=== PATIENT | female | born 1960 | race Caucasian/White ===

== ENCOUNTER → 2023-01-12 15:35 | Outpatient (CLI) | payer MEDICARE, OTHER, SELFPAY | PROVIDERS: PCP Nurse Practitioner Family; Visit Provider Nurse Practitioner Family | DX: R30.0 Dysuria (principal); B96.29 Other Escherichia coli [E. coli] as the cause of diseases classified elsewhere | CPT/HCPCS: 87086 ==

== ENCOUNTER → 2023-02-08 13:11 | Outpatient (CLI) | payer MEDICARE, OTHER, SELFPAY ==
[2023-02-08 17:21] LABS: Basophils # 0.1 K/mm3 (0-0.2); Eosinophils # 0.4 K/mm3 (0.0-0.4); Eosinophils % 5.1 % (0.1-12.0); Hematocrit 43.7 % (37.0-47.0); Hemoglobin 14.6 g/dL (12.2-16.2); Lymphocytes # 2.8 K/mm3 (0.7-4.5); Lymphocytes % 33.9 % (10-50); Mean Corpuscular HGB Conc 33.3 g/dL (31.8-35.4); Mean Corpuscular Hemoglobin 32.5 pg (27.0-31.2); Mean Corpuscular Volume 97.7 fl (81-99); Mean Platelet Volume 8.9 fl (7.4-10.4); Monocytes # 0.4 K/mm3 (0.1-1.0); Monocytes % 4.7 % (1.7-9.3); Neutrophils # 4.6 K/mm3 (1.8-7.8); Neutrophils % 55.3 % (37.0-80.0); Platelet Count 212 K/mm3 (142-424); Red Blood Count 4.47 M/mm3 (4.20-5.40); Red Cell Distribution Width 14.4 % (11.5-17.5); White Blood Count 8.2 K/mm3 (4.8-10.8)
[2023-02-08 17:23] LABS: Alanine Aminotransferase 23 U/L (12-78); Albumin/Globulin Ratio 1.4 (1.1-1.8); Alkaline Phosphatase 122 U/L (38-126); Anion Gap 10.9 mEq/L (5-15); Aspartate Amino Transferase 26 U/L (14-36); Bilirubin,Total 0.5 mg/dl (0.2-1.3); Blood Urea Nitrogen 13 mg/dl (7-17); Calcium 8.4 mg/dl (8.4-10.2); Carbon Dioxide 25 mmol/L (22.0-30.0); Chloride 107 mmol/L (98-107); Chol/HDL Ratio 2.7 (1-3.5); Cholesterol 142 mg/dl (140-200); Estimated Glomerular Filt Rate 63 ml/min (>60); GFR (African American) 77 ML/MIN (>60); Globulin 2.9 g/dL (1.3-3.2); Glucose 98 mg/dl (74-100); HDL Cholesterol 53 mg/dl (40-60); Potassium 3.9 mmoL/L (3.5-5.1); Sodium 139 mmol/L (136-145); Total Protein,Serum 6.9 g/dl (6.3-8.2); Triglycerides 107 mg/dl (30-150); VLDL Cholesterol 21 mg/dL (0-40)
[2023-02-08 17:34] LABS: Direct LDL Cholesterol 76.52 mg/dL (100-129)
[2023-02-15 10:13] LABS: 1,25 Dihydroxy Vitamin D 39 pg/mL (.); 1,25-Dihydroxy, Vitamin D-2 <10 pg/mL (.); 1,25-Dihydroxy, Vitamin D-3 39 pg/mL (.)
== END ==
PROVIDERS: PCP Nurse Practitioner Family; Visit Provider Nurse Practitioner Family
DX: I10 Essential (primary) hypertension (principal); J44.9 Chronic obstructive pulmonary disease, unspecified; E03.9 Hypothyroidism, unspecified; E55.9 Vitamin D deficiency, unspecified; Z79.899 Other long term (current) drug therapy
CPT/HCPCS: 80053; 80061; 82652; 84443; 85025

== ENCOUNTER 2023-07-26 10:49 | Outpatient (CLI) | payer MEDICARE, OTHER, SELFPAY | END 2023-07-26 23:59 | disposition home or self-care (01) | LOC: LAB.DROPOF 07-27 10:50 | PROVIDERS: PCP Nurse Practitioner Family; Visit Provider Nurse Practitioner Family | DX: R30.0 Dysuria (principal); N39.0 Urinary tract infection, site not specified; B96.29 Other Escherichia coli [E. coli] as the cause of diseases classified elsewhere | CPT/HCPCS: 87086; 87088; 87186 ==

== ENCOUNTER 2023-10-08 17:37 | Outpatient (CLI) | payer MEDICARE, OTHER, SELFPAY ==
--- NOTE | 2023-10-08 17:43 | XR_ITS ---
PROCEDURE INFORMATION: Exam: XR Right Foot Exam date and time: 10/08/2023 5:34 PM Age: 62 years old Clinical indication: Pain; Foot; Right; Additional info: Right heel pain TECHNIQUE: Imaging protocol: Radiologic exam of the right foot. Views: 3 or more views. COMPARISON: No relevant prior studies available. FINDINGS: Bones/joints: No acute fracture. Hallux valgus. Chronic appearing flattening of the 2nd metatarsal head likely related to previous [place] infraction. Mild forefoot osteoarthritis. Calcaneal enthesopathy. Soft tissues: Normal. IMPRESSION: 1. No acute osseous findings. 2. Calcaneal enthesopathy.
== END 2023-10-08 23:59 | disposition home or self-care (01) ==
PROVIDERS: PCP Nurse Practitioner Family; Visit Provider Nurse Practitioner Family
DX: M79.671 Pain in right foot (principal)
CPT/HCPCS: 73630

== ENCOUNTER 2023-10-18 15:55 | Outpatient (RCR) | payer MEDICARE, OTHER, SELFPAY | END 2023-11-26 15:26 | disposition home or self-care (01) | LOC: PT 15:55 | PROVIDERS: Visit Provider Nurse Practitioner Family | DX: M79.671 Pain in right foot (principal) | CPT/HCPCS: 97163 ==

== ENCOUNTER 2024-01-18 12:41 | Outpatient (CLI) | payer MEDICARE, OTHER, SELFPAY ==
[2024-01-18 15:13] LABS: Hemoglobin A1C 5.5 % (4.0-6.0)
== END 2024-01-18 23:59 | disposition home or self-care (01) ==
LOC: LAB.DROPOF 01-21 12:42
PROVIDERS: PCP Family Medicine; Visit Provider Family Medicine
DX: R73.09 Other abnormal glucose (principal)
CPT/HCPCS: 83036

== ENCOUNTER 2024-01-18 12:46 | Outpatient (CLI) | payer MEDICARE, OTHER, SELFPAY ==
--- NOTE | 2024-01-18 13:08 | CT_ITS ---
FINAL REPORT TECHNIQUE: Multiple axial CT sections were performed from the foramen magnum to the vertex. Coronal and sagittal reformatted images were also obtained. Precontrast and postcontrast injection images were obtained. This study was performed with technique to keep radiation doses as low as reasonably achievable, (ALARA). Individualized dose reduction techniques using automated exposure control or adjustment of mA and/or kV according to the patient size were employed. CLINICAL HISTORY: persistent headache COMPARISON: None FINDINGS: The ventricles are normal in size. There is no evidence of hemorrhage. No masses are identified. No extra-axial fluid collection is seen. The sinuses are normal. No osseous abnormality is seen on the bone window images. Postcontrast images demonstrate no abnormal enhancement. IMPRESSION: Unremarkable CT of the head with and without contrast. Reviewed, Interpreted and Dictated by Sharan Lopes III, MD Transcribed by Eliza Roberts Authenticated and [facility]
[2024-01-18 13:31] LABS: Chloride 110 mmol/L (98-107)
[2024-01-18 13:32] LABS: Potassium 3.5 mmoL/L (3.5-5.1); Sodium 142 mmol/L (136-145)
[2024-01-18 13:34] LABS: Alanine Aminotransferase 19 U/L (12-78); Aspartate Amino Transferase 21 U/L (14-36); Blood Urea Nitrogen 11 mg/dl (7-17); Estimated Glomerular Filt Rate 63 ml/min (>60); GFR (African American) 77 ML/MIN (>60)
[2024-01-18 13:35] LABS: Albumin/Globulin Ratio 1.3 (1.1-1.8); Alkaline Phosphatase 112 U/L (38-126); Anion Gap 10.5 mEq/L (5-15); Bilirubin,Total 0.6 mg/dl (0.2-1.3); Calcium 8.6 mg/dl (8.4-10.2); Carbon Dioxide 25 mmol/L (22.0-30.0); Chol/HDL Ratio 2.7 (1-3.5); Cholesterol 136 mg/dl (140-200); Glucose 151 mg/dl (74-100); HDL Cholesterol 51 mg/dl (40-60); Triglycerides 104 mg/dl (30-150); VLDL Cholesterol 21 mg/dL (0-40)
[2024-01-18 13:46] LABS: Direct LDL Cholesterol 62.24 mg/dL (100-129)
[2024-01-18] MEDS: SODIUM CHLORIDE 0.9% 10ML SYR (RAD ONLY) 10 ML IV (13:59)
[2024-01-18] MEDS: IOPAMIDOL-300 (61%) 100ML VIAL 100 ML IV (14:00)
[2024-01-18 14:01] LABS: Basophils # 0.1 K/mm3 (0-0.2); Basophils % 1.1 % (0.1-2.0); Eosinophils # 0.3 K/mm3 (0.0-0.4); Eosinophils % 3.3 % (0.1-12.0); Hematocrit 42.2 % (37.0-47.0); Hemoglobin 14.7 g/dL (12.2-16.2); Lymphocytes # 2.6 K/mm3 (0.7-4.5); Lymphocytes % 30.1 % (10-50); Mean Corpuscular HGB Conc 34.7 g/dL (31.8-35.4); Mean Corpuscular Hemoglobin 32.1 pg (27.0-31.2); Mean Corpuscular Volume 92.5 fl (81-99); Mean Platelet Volume 8.1 fl (7.4-10.4); Monocytes # 0.3 K/mm3 (0.1-1.0); Monocytes % 3.4 % (1.7-9.3); Neutrophils # 5.4 K/mm3 (1.8-7.8); Platelet Count 223 K/mm3 (142-424); Red Blood Count 4.56 M/mm3 (4.20-5.40); Red Cell Distribution Width 14.3 % (11.5-17.5); White Blood Count 8.7 K/mm3 (4.8-10.8)
[2024-01-18 14:08] LABS: Thyroid Stimulating Hormone 3.37 uIU/mL (0.465-4.68)
[2024-01-18 14:40] LABS: HIV (1&2) Antibody Rapid NONREACTIVE (NONREACTIVE)
[2024-01-19 08:22] LABS: HCV Ab Non Reactive (Non Reactive)
== END 2024-01-18 23:59 | disposition home or self-care (01) ==
LOC: RAD 12:48
PROVIDERS: PCP Family Medicine; Visit Provider Family Medicine
DX: R51.9 Headache, unspecified (principal); E03.9 Hypothyroidism, unspecified; I10 Essential (primary) hypertension; Z11.59 Encounter for screening for other viral diseases; Z11.4 Encounter for screening for human immunodeficiency virus [HIV]; Z79.899 Other long term (current) drug therapy; R73.09 Other abnormal glucose
CPT/HCPCS: 36415; 70470; 80053; 80061; 83036; 84443; 85025; 86803; 87389; Q9967

== ENCOUNTER 2024-01-22 14:00 | Outpatient (CLI) | payer MEDICARE, OTHER, SELFPAY | END 2024-01-22 23:59 | disposition home or self-care (01) | LOC: LAB.DROPOF 01-23 11:52 | PROVIDERS: PCP Family Medicine; Visit Provider Family Medicine | DX: R39.9 Unspecified symptoms and signs involving the genitourinary system (principal) | CPT/HCPCS: 87086 ==

== ENCOUNTER 2024-04-24 12:40 | Outpatient (CLI) | payer MEDICARE, OTHER, SELFPAY | END 2024-04-24 23:59 | disposition home or self-care (01) | LOC: RAD 12:41 | PROVIDERS: PCP Family Medicine; Visit Provider Family Medicine | DX: Z12.31 Encounter for screening mammogram for malignant neoplasm of breast (principal) | CPT/HCPCS: 77063; 77067 ==

== ENCOUNTER 2024-08-14 14:00 | Outpatient (CLI) | payer MEDICARE, OTHER, SELFPAY ==
--- OUTSIDE RECORDS SUMMARY | 2024-08-15 12:47 | XMS_ITS | Data Portability ---
Author Organization [facility] Address [address] [place] [address] Care Team Providers Care Stone Repairer Name Role Phone STANLEY PAEZ Primary Care Provider [phone] Assessment No assessment recorded. Plan of Treatment Reminders Order Date Submit Date Provider Last Modified By Organization Details Last Modified Time Details Appointments None recorded. Lab None recorded. Referral None recorded. Procedures None recorded. Surgeries None recorded. Imaging None recorded. Medication Orders mometasone 0.1 % topical cream 2022 023 [facility] [address] [place], [address], 3 15:50:23 ketoconazol e 1 % shampoo 2022 023 [facility], [address] [place], [address], 3 15:50:27 fluticasone propionate 50 mcg/actuati on nasal spray,suspe nsion 2022 023 [facility], [address] [place], [address], 3 15:50:22 loratadine 10 mg tablet 2022 023 [facility], [address] [place], [address], 3 15:50:21 Topamax 50 mg tablet 2022 023 [facility], [address] [place], [address], 3 15:50:24 Patient TargetsNo targets recorded. Patient InstructionsNo instructions recorded. Reason for Referral None Reported. Problems Name Problem SNOMED Code Status Onset Date Resolution Date Notes Provider Name and Address Organization Details Recorded Time Chronic otitis externa of left external auditory canal 7589580814806 104 Active Tamie Stephen null, [place] [facility] [place] & [place] 3 16:09:00 Myocardial infarction 95524978 Active Tamie [place] [facility] [place] 3 16:09:37 Hypertensiv e disorder 86861773 Active Tamie Stephen [place], [place] [facility] [place] [facility] [place] 3 16:10:11 Migraine 61242461 Active Tamie [place] [facility] [place] [facility] [place] 3 16:10:33 Arthritis 3201900 Active Tamie [place] [facility] [place] 3 16:10:45 Problem 53777550 Active Tamie [place] [facility] [place] 3 16:10:56 Anxiety 78277260 Active Tamie [place] [facility] [place] [facility] [place] 3 16:11:02 Hypercholes terolemia 51258758 Active Tamie Stephen [place] [facility] [place] 3 16:11:11 Gastroesoph ageal reflux disease without esophagitis 533794906 Active Tamie Stephen [place] [facility] [place] 3 16:11:23 Chronic obstructive pulmonary disease 51176990 Active ARCHANA Moss [employer] [facility],[address] [place] [address], [address] [facility] [place] - [facility] [place] 3 15:44:11 Headache 05031586 Active 2022 ARCHANA Moss [employer] [facility],[place] [address], [place], [address], [facility] & [place] 3 15:45:43 Chronic eczema of external auditory canal 726932840 Active [address], [address], [place] [facility] & [place] 3 15:46:11 Allergic rhinitis 06308866 Active 2022 Eunice Whittaker [address],[place] [address], [place], [address], [place] [facility] & [place] 3 15:46:16 Acute sinusitis 53139698 Active [address], [address], [facility] & [place] 3 14:10:43 Problem Notes None recorded. Procedures Surgical History Date Name Laterality Status Provider Name and Address Organization Details Recorded Time ligation of bilateral fallopian tubes completed Tamie Stephen [place] [facility] [place] 06/01/2022 16:12:21 procedure on back completed Tamie Stephen [place] - [facility] & [place] 06/01/2022 16:12:27 procedure on nose completed Tamie Stephen [place] [facility] & [place] 06/01/2022 16:12:34 Imaging Results None recorded. Procedure Notes None recorded. Medical Equipment None Reported. Allergies Allergen ID Allergen Name Allergen Category Reaction Reaction Severity Criticality Documentation Date Start Date Code Code System Note Provider Name and Address Organization Details Recorded Time 76102 Product containin g penicilli n (product) medicatio n Not available Not available Not available 06/01/2022 10566 8001 SNOMED Tamie Stephen null, [place] - [facility] & [place] 3 16:12:47 Medications Name Sig Start Date Stop Date Status Note LastModified by Organization Details LastModified Time atorvastati n 40 mg tablet TAKE 1 TABLET 1 TIME EACH DAY active Not Available Not Available No t Available clotrimazol e 10 mg dany active Not Available Not Available Not Available prednisone 10 mg tablet TAKE ACCORDING TO ATTACHED INSTRUCTI ONS active Not Available Not Available No t Available gabapentin 600 mg tablet TAKE 1 TABLET 3 TIMES EACH DAY active Not Available Not Available No t Available doxycycline hyclate 100 mg capsule TAKE 1 CAPSULE 2 TIMES EACH DAY FOR 10 DAYS active Not Available Not Available No t Available ketoconazol e 2 % shampoo active Not Available Not Available Not Available ibuprofen 800 mg tablet active Not Available Not Available Not Available fluconazole 150 mg tablet TAKE 1 TABLET TODAY. MAY TAKE ANOTHER TABLET IN 3 DAYS IF SYMPTOMS ARE NOT GONE. active Not Available Not Available No t Available methadone 10 mg tablet TAKE 1 TABLET 4 TIMES EACH DAY active Not Available Not Available No t Available phenazopyri dine 200 mg tablet active Not Available Not Available Not Available lisinopril 20 mg tablet TAKE 1 TABLET 1 TIME EACH DAY 06/01 completed Not Available Not Available Not Available isosorbide mononitrate ER 30 mg tablet,exte nded release 24 hr TAKE 1 TABLET 1 TIME EACH DAY active Not Available Not Available No t Available metoprolol succinate ER 100 mg tablet,exte nded release 24 hr TAKE 1 TABLET 1 TIME EACH DAY active Not Available Not Available No t Available clindamycin HCl 150 mg capsule 11/06 completed Not Available Not Available Not Available sumatriptan 50 mg tablet Take one tablet by mouth at onset of episode, may repeat in 1 -2 hours if no relief, no more than 2 in 24 hours active Not Available Not Available No t Available pseudoephed rine ER 120 mg tablet,exte nded release TAKE 1 TABLET EVERY 12 HOURS NEEDED FOR NASAL CONGESTIO N active Not Available Not Available No t Available clopidogrel 75 mg tablet TAKE 1 TABLET 1 TIME EACH DAY active Not Available Not Available No t Available ciprofloxac in 250 mg tablet active Not Available Not Available Not Available ciprofloxac in 500 mg tablet TAKE 1 TABLET 2 TIMES EACH DAY FOR 7 DAYS active Not Available Not Available No t Available sulfamethox azole 800 mg-trimetho prim 160 mg tablet active Not Available Not Available Not Available triamcinolo ne acetonide 0.1 % topical cream active Not Available Not Available Not Available methocarbam ol 750 mg tablet active Not Available Not Available Not Available desoximetas one 0.25 % topical ointment active Not Available Not Available Not Available cephalexin 500 mg capsule TAKE 1 CAPSULE 2 TIMES EACH DAY FOR 10 DAYS active Not Available Not Available No t Available esomeprazol e magnesium 40 mg capsule,del ayed release TAKE 1 CAPSULE 1 TIME EACH DAY active Not Available Not Available No t Available nystatin 100,000 unit/gram topical cream APPLY TO AFFECTED AREA 4 TIMES EACH DAY active Not Available Not Available No t Available nitroglycer in 0.4 mg sublingual tablet DISSOLVE 1 TABLET UNDER THE TONGUE EVERY 5 MINUTES NEEDED FOR CHEST PAIN. IF 3 TABLETS ARE NEEDED, GO TO EMERGENCY ROOM. active Not Available Not Available No t Available omeprazole 20 mg capsule,del ayed release TAKE 1 CAPSULE 2 TIMES EACH DAY active Not Available Not Available No t Available mupirocin 2 % topical ointment APPLY A THIN FILM TO THE AFFECTED AREA OF SKIN 2 TIMES EACH DAY active Not Available Not Available No t Available estradiol 0.01% (0.1 mg/gram) vaginal cream INSERT 1/2 GRAM INTO THE VAGINA 2 TIMES EACH WEEK active Not Available Not Available No t Available scopolamine 1 mg over 3 days transdermal patch APPLY 1 PATCH DIRECTED EVERY 3 DAYS NEEDED FOR MOTION SICKNESS. active Not Available Not Available No t Available methylpredn isolone 4 mg tablets in a dose pack TAKE ACCORDING TO PACKAGE INSTRUCTI ONS active Not Available Not Available No t Available albuterol sulfate HFA 90 mcg/actuati on aerosol inhaler INHALE 2 PUFFS EVERY 4 HOURS active Not Available Not Available No t Available lisinopril 40 mg tablet TAKE 1 TABLET 1 TIME EACH DAY active Not Available Not Available No t Available ondansetron 4 mg disintegrat ing tablet PLACE 1 TABLET UNDER THE TONGUE AND ALLOW TO DISSOLVE EVERY 8 HOURS NEEDED FOR NAUSEA AND VOMITING active Not Available Not Available No t Available cefdinir 300 mg capsule Take 1 capsule every 12 hours by oral route for 10 days. active Not Available Not Available No t Available fluticasone propionate 50 mcg/actuati on nasal spray,suspe nsion SPRAY 1 TIME IN EACH NOSTRIL 1 TIME EACH DAY active Not Available Not Available No t Available ketoconazol e 1 % shampoo APPLY SHAMPOO BY TOPICAL ROUTE EVERY 3 DAYS LATHER, RINSE, AND REPEAT 2022 active Not Available Not Available Not Avai lable cholecalcif myranda (vitamin D3) 125 mcg (5,000 unit) capsule TAKE 1 CAPSULE 1 TIME EACH DAY active Not Available Not Available No t Available loratadine 10 mg tablet Take 1 tablet every day by oral route for 30 days. active Not Available Not Available No t Available mometasone 0.1 % topical cream APPLY A THIN LAYER TO THE LEFT EAR NIGHTLY FOR 14 DAYS THEN NEEDED FOR FLARE UPS active Not Available Not Available No t Available levothyroxi ne 112 mcg tablet TAKE 1 TABLET 1 TIME EACH DAY active Not Available Not Available No t Available Topamax 50 mg tablet Take 1 tablet(s) twice a day by oral route for 30 days. 2023 active Not Available Not Available Not Avai lable nitrofurant oin monohydrate /macrocryst als 100 mg capsule active Not Available Not Available Not Available Symbicort 160 mcg-4.5 mcg/actuati on HFA aerosol inhaler INHALE 2 PUFFS 2 TIMES EACH DAY active Not Available Not Available No t Available cholecalcif myranda (vitamin D3) 125 mcg (5,000 unit) tablet active Not Available Not Available Not Available naloxone 4 mg/actuatio n nasal spray SPRAY 1 DOSE INTO 1 NOSTRIL IN CASE OF OVERDOSE. IF PERSON DOES NOT RESPOND IN 2-3 MINUTES, SPRAY OTHER DOSE INTO OTHER NOSTRIL. active Not Available Not Available No t Available Breztri Aerosphere 160 mcg-9mcg-4. 8mcg/actuat ion HFA aerosol inhaler INHALE 2 PUFFS 2 TIMES EACH DAY active Not Available Not Available No t Available Veozah 45 mg tablet TAKE 1 TABLET 1 TIME EACH DAY active Not Available Not Available No t Available Vitals Date Recorded Body height Body weight Body temperature Oxygen saturation Oxygen saturation in Arterial blood by Pulse oximetry Heart rate Respiratory rate Systolic blood pressure Diastolic blood pressure Provider Name and Address Organization Details Last Updated DateTime 3 160.02 cm 05423.3 6 g 97.8 [degF] 95 % 95 % 69 /min 16 /min 136 mm[Hg] 79 mm[Hg] ARCHANA Moss [address] [facility],[address], [address] [place], [place] - [facility] & [place] 3 15:38:42 Social History None recorded. Functional Status None recorded. Mental Status None recorded. Family History Relationship Description Onset Age of this Age Resolved Age Notes LastModified by Organization Details LastModified Time Mother Diabetes mellitus [email or web address] Not available 2022 16:11:38 Mother Hypertensive disorder [email or web address] Not available 2022 16:11:48 Father Hypertensive disorder [email or web address] Not available 2022 16:11:48 Father Coronary arterioscler osis [email or web address] Not available 2022 16:11:57 Father Cerebrovascu lar accident [email or web address] Not available 16:12:03 Medical History No medical history recorded. Gynecological HistoryNo gynecological history recorded. Obstetrics History GPAL:G 0 P 0 0 0 0 Past Encounters Encounter ID Performer Location Encounter Start Date Encounter Closed Date Diagnosis/Indication Diagnosis SNOMED-CT Code Diagnosis ICD10 Code Diagnosis Note [id number] ARCHANA Moss [facility] [place] [address] [place] [id number] 11/06/2022 15:04:31 11/06/2022 15:44:50 Headache 85620941 R51.9 Continue current medication regimen. Patient reports her symptoms have improved greatly since starting this regimen. Follow up in one year or sooner if needed. Chronic ec zema of external auditory canal 696524936 H60.8X9 Advised patient to use medication as prescribed . Discussed symptoms that should prompt patient to call the office prior to follow up. Allergic rhinitis 697782 04 J30.9 Advised patient to use medication as prescribed . Advised patient to call the office if symptoms do not improve following initiation of allergy regimen. Health Concerns Section Related Observation LastModified by Organization Detai ls LastModified Time None Recorded Concern Status LastModified by Organization Details LastModified Time None Recorded Advance Directives Directive None Recorded Payers Insurance Date Sequence Insurance Name Policy Number Policy Schulte Covered Member ID Schulte Member ID Guarantor Name 09/29/2023 [place] Rocío Bedoya [id number] Rocío eBdoya 09/29/2023 2 AETNA [facility] (MEDICAID HMO) Rocío Bedoya [id number] Rocío Bedoya 09/29/2023 1 [place]MEDICARE REPLACEMENT HMO) [id number] Rocío Bedoya [id number] Rocío Johnson Elke Notes Date Note Type Note Provider Name and Address Organization Details Recorded Time 11/06/2022 text/html Patient is here today for annual follow up. She reports her migraines are well controlled on the topamax. She reports her ear is still itching. She reports over the past few days she has had a runny nose and sore throat. ARCHANA Moss [address] [facility],[address], [place], [address], [facility] & [place] 11/06/2022 15:55:37 OBGyn Episode No OBEpisode recorded.
--- OUTSIDE RECORDS SUMMARY | 2024-08-15 12:47 | XMS_ITS | Encounter Summary ---
Author Organization Healthcare Address [address] [place] [address] Care Team Providers Care Wood Dowel Machine Operator Name Role Phone Dai Beaver APRN Primary Care Provider [phone]- [phone] Encounter Details Date Type Department Care Team (Late st Contact Info) Description 07/30/2024 [facility]phone [place] [facility] [address] [place] [address] Jethro Sow, PA [address] [place] [address] Social History Tobacco Use Types Packs/Day Years Used Date Smoking Tobacco: Never Alcohol Use Standard Drinks/Week Comments Never 0 (1 standard drink = 0.6 oz pur e alcohol) Comments Unknown Sex and Gender Information Value Date Recorded Sex Assigned at Not on file Legal Sex Female 8:08 PM EDT Gender Identity Not on file Sexual Orientation Not on file documented as of this encounter Plan of Treatment Not on file documented as of this encounter Visit Diagnoses Not on filedocumented in this encounter Care Teams Wood Dowel Machine Operator Relationship Specialty Start Date End Date Dai Beaver APRN [address] [place] [address] PCP - General 05/10/24 documented as of this encounter
--- OUTSIDE RECORDS SUMMARY | 2024-08-15 12:47 | XMS_ITS | Clinical Summary ---
Author Organization [facility] Address [address] [place] [address] Care Team Providers Care Search Engine Optimization Consultant Name Role Phone Dai Beaver LOAN ANALYST Primary Care Provider +1- [phone] Allergies Active Allergy Reactions Criticality Noted Date Comments Penicillins Rash Low 02/19/2022 Medications SUMAtriptan (Imitrex) 25 MG tablet Take 1 tablet (25 mg) by mouth 1 (one) time as needed for migraine for up to 10 doses. May repeat dose once in 2 hours if no relief. Do not exceed 2 doses in 24 hours. 10 tablet 05/10/2024 Active Encounters Date Type Department Care Team Description 08/12/2024 Telephone [facility] [address] [place] [address] Jethro Sow, KATHARINA 07/30/2024 Telephone [facility] [address], [address] [place] [address] Jethro Sow, KATHARINA from Last 3 Months Social History Tobacco Use Types Packs/Day Years Used Date Smoking Tobacco: Never Tobacco Cessation:Counseling Given: Not Answered Alcohol Use Standard Drinks/Week Comments Never 0 (1 standard drink = 0.6 oz pur e alcohol) Comments Unknown Sex and Gender Information Value Date Recorded Sex Assigned at Not on file Legal Sex Female 8:08 PM EDT Gender Identity Not on file Sexual Orientation Not on file Last Filed Vital Signs Vital Sign Reading Time Taken Comments Blood Pressure 132/85 05/10/2024 8:27 PM EST Pulse 56 05/10/2024 8:27 PM EST Temperature 36.6 C (97.8 F) 05/10/2024 8:27 PM EST Respiratory Rate 18 05/10/2024 8:27 PM EST Oxygen Saturation 98% 05/10/2024 8:27 PM EST Inhaled Oxygen Concentration - - Weight 99.8 kg (220 lb) 05/10/2024 2:20 PM EST Height 160 cm (5' 3 ) 05/10/2024 2:20 PM EST Body Mass Index 38.97 05/10/2024 2:20 PM EST Plan of Treatment Health Maintenance Due Date Last Done Comments [facility]-Depression Screening 1960 [facility]-Medicare Annual Wellness (AWV) 1960 [facility]-Infant/Child/Adol SDOH Screenings 1960 [facility]-Obesity Intervention 1966 [facility]- SDOH Screenings 1978 [facility]-Adult SDOH Screenings 1978 [facility]-Pap Smear 1981 [facility]-Cervical Cancer Screening 1990 [facility]-HPV/Cotest 1990 CT Colonography 2005 Colonoscopy 2005 FIT-DNA 2005 FIT 2005 FOBT 2005 Sigmoidoscopy 2005 [facility]-Colorectal Cancer Screening 2005 [facility]-Breast Cancer Screening 2010 [facility]-Zoster Vaccines (1 of 2) 2010 [id number] Vaccine (2 - season) 2023 05/17/2020 [facility]-DTaP,Tdap,and Td Vaccines (2 - Td or Tdap) 03/12/2024 03/12/2014 [facility]-RSV Vaccine: 60+ Years or (1 - 1-dose 75+ series) 12/24/2035 [facility]-Influenza Vaccine Completed 04/03/2024 , 12/17/2022, 12/22/2019, Additional history exists [facility]-Pneumococcal Vaccine: 50+ Years Completed 04/03/2024 [facility]-HIV Screening Completed 05/10/2024 [facility]-Hepatitis C Screening Completed 05/10/2024 HPV Vaccines Aged Out No longer eligi ble based on patient's age to complete this topic [facility]-HIB Vaccines Aged Out No longer e ligible based on patient's age to complete this topic [facility]-Hepatitis A Vaccines Aged Out No longer eligible based on patient's age to complete this topic [facility]-IPV Vaccines Aged Out No longer e ligible based on patient's age to complete this topic [facility]-Rotavirus Vaccines Aged Out No lo nger eligible based on patient's age to complete this topic Procedures Procedure Name Priority Date/Time Associated Diagnosis Comments HEPATITIS C ANTIBODY - ED W/REFLEX TO HCV QUANT PCR STAT 05/10/2024 3:27 PM EST ED HIV 1/2 ANTIBODY/ANTIGEN SCREEN WITH REFLEX TO HIV I/II DIFFERENTIATION STAT 05/10/2024 3:27 PM EST from Last 3 Months or Most Recently Relevant to Health Maintenance Results * ED HIV 1/2 Antibody/Antigen Screen w/Reflex to HIV 1/2 Differentiation (05/10/2024 3:27 PM EST) HIV 1 & 2 Antibody/Antigen Screen Non Reactive Non Reactive 05/10/2024 4:20 PM EST [facility] Comment:Screening for HIV 1 & 2 antibodies, and P24 antigen is NONREACTIVE. No confirmatory testing is required. Blood Venous blood specimen / Unknown Venipuncture / Unknown 05/10/2024 3:27 PM EST 05/10/2024 3:40 PM EST Result Olga Richardson MD LAB BLOOD ORDERABLES Final Re sult Performing Organization Address City/[facility]/ZIP Co de Phone Number [facility] [address] [place] [address] * Hepatitis C Antibody - ED (05/10/2024 3:27 PM EST) Hepatitis C Antibody Negative Negative 05/10/2024 4:20 PM EST [facility] Blood Venous blood specimen / Unknown Venipuncture / Unknown 05/10/2024 3:27 PM EST 05/10/2024 3:40 PM EST us Martina Richardson MD LAB BLOOD ORDERABLES Final Re sult [facility] [address] [place] [address] from Last 3 Months or Most Recently Relevant to Health Maintenance Insurance AETNA [facility] MEDICAID [facility] MEDICARE Care Teams Search Engine Optimization Consultant Relationship Specialty Start Date End Date Dai Beaver APRN [address] [place] [address] PCP - General 05/10/24
--- OUTSIDE RECORDS SUMMARY | 2024-08-15 12:47 | XMS_ITS | Encounter Summary ---
Author Organization Healthcare Address [address] [place] [address] Care Team Providers Care Java Lead Name Role Phone Dai Beaver APRN Primary Care Provider +1- [phone] Encounter Details Date Type Department Care Team (Late st Contact Info) Description 08/12/2024 Telephone [place] [facility] [address], [address] [place] [address] Jethro Sow, PA [address] [place] [address] Social History Tobacco Use Types [...] on filedocumented in this encounter Care Teams Java Lead Relationship Specialty Start Date End Date Dai Beaver APRN [address] [place] [address] PCP - General 05/10/24 documented as of this encounter
--- OUTSIDE RECORDS SUMMARY | 2024-08-15 12:47 | XMS_ITS | Referral Summary ---
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 Active omeprazole (PriLOSEC) 20 MG capsuleIndications: Health care maintenance Take 20 mg by mouth 2 (two) times daily. Active atorvastatin (LIPITOR) 40 MG tabletIndications:H yperlipidemia, unspecified hyperlipidemia type TAKE 1 TABLET 1 TIME EACH DAY 2 Active gabapentin (NEURONTIN) 600 MG tabletIndications:H ealth care maintenance Take 600 mg by mouth 3 (three) times daily. 2 Active methadone (DOLOPHINE) 10 MG tabletIndications:H ealth care maintenance Take 10 mg by mouth 4 (four) times daily. 2 Active metoprolol succinate (TOPROL-XL) 100 MG 24 hr tabletIndications:H ypertension, unspecified type TAKE 1 TABLET 1 TIME EACH DAY 2 Active levothyroxine (SYNTHROID, LEVOTHROID) 112 MCG tabletIndications:H ypothyroidism, unspecified type TAKE 1 TABLET 1 TIME EACH DAY 2 Active topiramate (TOPAMAX) 50 MG tabletIndications:H ealth care maintenance Take 50 mg by mouth 2 (two) times daily. 2 Active Social History Tobacco Use Types Packs/Day Years Used Date Smoking Tobacco: Former Cigarettes Q uit: 2001 Smokeless Tobacco: Never Alcohol Use Standard Drinks/Week Comments Not Currently 0 (1 standard drink = 0.6 oz pur e alcohol) social Interpersonal Safety Answer Date Record ed Family or friends hurt you Not on file 03/30 Family or friends insult you Not on file Family or friends threaten you Not on file 0 03/30/2023 Family or friends scream or curse at you Not on file 03/30/2023 Housing Stability Answer Date Recorded Living situation today Not on file Living situation problems Not on file 2023 Food Insecurity Answer Date Recorded Food run out past 12 months Not on file 03/12 Food did not last past 12 months Not on file 03/30/2023 Employment Answer Date Recorded Help finding and keeping a job Not on file 0 03/30/2023 Family and Community Support Answer Tono e Recorded Help with Day to Day Activities Not on file 03/30/2023 Feeling Lonely or Isolated Not on file 03/30 Educational Attainment Answer Date Harmeet rded Speak language other than [place] at home Not on file 03/30/2023 Want help with school or training Not on file 03/30/2023 Depression Answer Date Recorded PHQ-2 Risk Not on file 03/30/2023 Disabilities Answer Date Recorded Difficulty concentrating Not on file 024 Difficulty doing errands alone Not on file 0 03/30/2023 Substance Use Answer Date Recorded Used prescription meds for non-medical reasons N ot on file 03/30/2023 Used illegal drugs past 12 months Not on file 03/30/2023 Comments Unknown Sex and Gender Information Value Date Recorded Sex Assigned at Not on file Legal Sex Female 7:29 PM CDT Gender Identity Not on file Sexual Orientation Not on file Occupation Industry Job Start Date Job End Date disabled Not on file Not on file Not on file Last Filed Vital Signs Vital Sign Reading Time Taken Comments Blood Pressure 150/80 02/20/2022 2:10 PM EST Pulse 60 02/20/2022 2:10 PM EST Temperature - - Respiratory Rate - - Oxygen Saturation - - Inhaled Oxygen Concentration - - Weight 98.4 kg (217 lb) 02/20/2022 2:10 PM EST Height 160 cm (5' 3 ) 02/20/2022 2:10 PM EST Body Mass Index 38.44 02/20/2022 2:10 PM EST Plan of Treatment Not on file Insurance [employer] [facility] Advance Directives For more information, please contact: [phone] Documents on File Type Date Recorded 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
--- OUTSIDE RECORDS SUMMARY | 2024-08-15 12:47 | XMS_ITS | Data Portability ---
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 COPD *PFT (10/23/2022): moderate obstruction, no restriction, +midflow obstruction, no change after TRERELL 2. Dyspnea *CXR (06/26/2022): negative exam *6 MWT (10/23/2022): no desaturations 3. Former smoker 1 ppd x 25 years; Quit 2 years ago but vapes 2 out of 7 days 4. History of Covid *05/2021 5. History of CAD, Vitamin D deficiency, HTN, MD (2002), hypothyroidism, GERD, chronic back pain *managed by PCP and Cardiology Plan: 1. Rx Symbicort 160 mcg 2 puffs BID; Instructed to rinse mouth after each use; I personally demonstrated use of the inhaled device during todays visit 2. RX Albuterol HFA prn; discussed indications for use 3. 6 MWT completed during todays visit 4. Order LDCT Chest ([facility] to [facility]) *patient wishes to participate in SS 5. RTO as scheudled, sooner if needed PFT The patient underwent pulmonary function testing today to evaluate complaints of dyspnea. Results were discussed with the patient. LDCT Shared Decision Making The patient was counselled regarding the low dose screening CT requirements. the benefits of screening were discussed to include the potential to reveal a lung malignancy in the early stages where it could possibly be better treated. Potential harms of screening were also discussed to include potential false positive results. It was stressed that they should continue annual screening for 10 years. They state they understand the potential benefits and risks and would like to proceed with screening. [facility] Not available 10/25/2022 23:24:34 11/20/2022 11/20/2022 Assessment: 1. COPD *PFT (10/23/2022): moderate obstruction, no restriction, +midflow obstruction, no change after TERRELL *A1AT Genotype (10/23/2022): M/M 2. Emphysema 3. Dyspnea *CXR (06/26/2022): negative exam *6 MWT (10/23/2022): no desaturations 4. Former smoker 1 ppd x 25 years; Quit 20 years ago but vapes 2 out of 7 days *LDCT Chest (11/07/2022): mild emphysema without pathologic pulmonary nodularity; incidental note of hepatic steatosis 5. History of Covid *05/2021 6. History of CAD, Vitamin D deficiency, HTN, MD (2002), hypothyroidism, GERD, chronic back pain *managed by PCP and Cardiology 7. BMI 38.1 Plan: 1. Continue Symbicort 160 mcg 2 puffs BID; Instructed to rinse mouth after each use 2. Continue Albuterol HFA prn; discussed indications for use 3. Repeat LDCT Chest -next due 10/2023 4. RTO in 6 months, sooner if needed [facility] Not available 11/24/2022 21:22:02 05/23/2023 05/23/2023 Assessment: 1. COPD *PFT (10/23/2022): moderate obstruction, no restriction, +midflow obstruction, no change after TERRELL *PFT (05/23/2023): moderate obstruction, no restriction, +gas trapping, +midflow obstruction, +ETRRELL *A1AT Genotype (10/23/2022): M/M 2. Emphysema 3. Dyspnea *CXR (06/26/2022): negative exam *6 MWT (10/23/2022): no desaturations 4. Former smoker 1 ppd x 25 years; Quit 20 years ago but vapes 2 out of 7 days *LDCT Chest (11/07/2022): mild emphysema without pathologic pulmonary nodularity; incidental note of hepatic steatosis 5. History of Covid *05/2021 6. History of CAD, Vitamin D deficiency, HTN, MD (2002), hypothyroidism, GERD, chronic back pain *managed by PCP and Cardiology 7. BMI 38.1 Plan: 1. Stop Symbicort; RX Breztri 2 puffs twice daily; Rinse mouth after each use 2. Continue Albuterol HFA prn; discussed indications for use 3. Repeat LDCT Chest -next due 10/2023 (ordered) 4. Vaping Cessation 5. RTO in [address] results, sooner if needed The patient underwent pulmonary function testing today to evaluate complaints of dyspnea. Results were discussed with the patient. Portions of this note may be dictated using voice recognition software and or use of a medical underwriter. Variances in spelling and vocabulary are possible and unintentional. Not all errors are caught/corrected . Please notify the author if any discrepancies are noted or if the meaning of any statement is not clear. This is a summary discussion with the patient and in no way is intended to be a verbatum summation of everything discussed. We apologize for any inconvenience. [email or web address] Not available 05/23/2023 15:30:19 Plan of Treatment Reminders Order Date Submit Date Provider Last Modified By Organization Details Last Modified Time Details Appointments None recorded. Lab None recorded. Referral None recorded. Procedures None recorded. Surgeries None recorded. Imaging LDCT, chest, for lung cancer screening 2022 023 [email or web address] Susan (Centralized Scheduling), [address] [place] [address] , [place], [address], 3 13:28:48 Medication Orders Breztri Aerosphere 160 mcg-9mcg-4. 8mcg/actuat ion HFA aerosol inhaler 2023 024 [facility] [employer], [address] [place], [place], [id number], 5 17:32:12 Symbicort 160 mcg-4.5 mcg/actuati on HFA aerosol inhaler 2022 023 [facility], [address] [place], [address], 4 15:03:30 albuterol sulfate HFA 90 mcg/actuati on aerosol inhaler 2022 023 [facility], [address] [place], [address], 14:41:51 Patient TargetsNo targets recorded. Patient Instructions Encounter Date Encounter Id Patient Instructions Last Modified By Organization Details Last Modified Time 10/23/2022 [id number] I have reviewed the past medical, family and social histories along with ROS and all orders in todays record and have noted any changes. Medications, records reviewed in full today. Not available 10/25/2022 23:24:12 11/20/2022 [id number] weight managemen t education Not available 11/24/2022 21:22:36 Vaping cessation Not available 11/24/2022 21:19:15 Reason for Referral None Reported. Results Created Date Observation Date Name Description Value Unit Range Abnormal Flag Note LastModifiedBy Organization Detail LastModifiedTime 10/27/19 23 10/23/2022 6 minut e walk test* No observ ation record ed. [email or web address] Not Available 2022 09:23:26 10/27/19 23 10/23/2022 compl ete PFT w/ post [facility] hodil ator bernardino metry * No observ ation record ed. [email or web address] Not Available 2022 09:23:54 11/28/19 23 11/07/2022 LDCT, chest , for lung cance r scree jose alfredo No observ ation record ed. [email or web address] [facility] (Imaging) [address] [facility] [place], [address], 12/14/2022 13:00:07 05/29/19 24 05/29/2023 compl ete PFT w/ post [facility] hodil ator bernardino metry * No observ ation record ed. [email or web address] Not Available 2023 18:53:55 Result Notes None recorded. Problems Name Problem SNOMED Code Status Onset Date Resolution Date Notes Provider Name and Address Organization Details Recorded Time Chronic obstructive pulmonary disease 63946183 Active 2022 Elke Malone, EDIS [address], [place], [address], [facility] 3 14:34:50 Body mass index 30+ - obesity 018798765 Active 2022 Elke Malone NP [address], [place], [address], [facility] 3 21:21:24 Problem Notes None recorded. Medical Equipment None Reported. Allergies Allergen ID Allergen Name Allergen Category Reaction Reaction Severity Criticality Documentation Date Start Date Code Code System Note Provider Name and Address Organization Details Recorded Time Product containin g penicilli n (product) medicatio n Not available Not available Not available 10/23/2022 02215 [id number] SNOMED nils marco [place] [facility], [facility] 3 14:09:43 Medications Name Sig Start Date Stop Date Status Note LastModified by Organization Details LastModified Time atorvasta tin 40 mg tablet TAKE 1 TABLET 1 TIME EACH DAY IN THE EVENING active Not Available Not Available No t Available clotrimaz ole 10 mg dany Take 1 tablet 5 times a day by oral route as needed for 14 days. active Not Available Not Available No t Available prednison e 10 mg tablet TAKE ACCORDIN G TO INCLUDED INSTRUCT IONS active Not Available Not Available No t Available gabapenti n 600 mg tablet TAKE 1 TABLET 3 TIMES EACH DAY active Not Available Not Available No t Available doxycycli ne hyclate 100 mg capsule TAKE 1 CAPSULE 2 TIMES EACH DAY FOR 10 DAYS 05/22 completed Not Available Not Available Not Available ketoconaz ole 2 % shampoo active Not Available Not Available Not Available ibuprofen 800 mg tablet TAKE 1 TABLET 2 TIMES EACH DAY NEEDED FOR PAIN active Not Available Not Available No t Available fluconazo le 150 mg tablet TAKE 1 TABLET 1 TIME EACH DAY EVERY 3 DAYS active Not Available Not Available No t Available methadone 10 mg tablet TAKE 1 TABLET 4 TIMES EACH DAY active Not Available Not Available No t Available phenazopy ridine 200 mg tablet TAKE 1 TABLET BY MOUTH THREE (3) TIMES DAILY NEEDED. active Not Available Not Available No t Available lisinopri l 20 mg tablet TAKE 1 TABLET 1 TIME EACH DAY 10/23 completed Not Available Not Available Not Available famotidin e 40 mg tablet TAKE 1 TABLET 1 TIME EACH DAY AT BEDTIME active Not Available Not Available No t Available isosorbid e mononitra te ER 30 mg tablet,ex tended release 24 hr TAKE 1 TABLET 1 TIME EACH DAY 10/23 completed Not Available Not Available Not Available metoprolo l succinate ER 100 mg tablet,ex tended release 24 hr TAKE 1 TABLET 1 TIME EACH DAY active Not Available Not Available No t Available clindamyc in HCl 150 mg capsule 10/23 completed Not Available Not Available Not Available sumatript an 50 mg tablet TAKE 1 TABLET AT START OF HEADACHE . MAY TAKE ANOTHER TABLET IN 2 HOURS IF NEEDED. DO NOT TAKE MORE THAN 2 TABLETS IN 24 HOURS. active Not Available Not Available No t Available pseudoeph edrine ER 120 mg tablet,ex tended release TAKE 1 TABLET EVERY 12 HOURS NEEDED FOR NASAL CONGESTI ON 05/22 completed Not Available Not Available Not Available clopidogr el 75 mg tablet TAKE 1 TABLET 1 TIME EACH DAY active Not Available Not Available No t Available ciproflox acin 250 mg tablet 05/22 completed Not Available Not Available Not Available ciproflox acin 500 mg tablet TAKE 1 TABLET 2 TIMES EACH DAY FOR 7 DAYS active Not Available Not Available No t Available sulfameth oxazole 800 mg-trimet hoprim 160 mg tablet TAKE 1 TABLET 2 TIMES EACH DAY active Not Available Not Available No t Available triamcino lone acetonide 0.1 % topical cream active Not Available Not Available Not Available methocarb rosanne 750 mg tablet 05/22 completed Not Available Not Available Not Available desoximet asone 0.25 % topical ointment active Not Available Not Available Not Available cephalexi n 500 mg capsule TAKE 1 CAPSULE 2 TIMES EACH DAY FOR 10 DAYS 05/22 completed Not Available Not Available Not Available esomepraz ole magnesium 40 mg capsule,d elayed release TAKE 1 CAPSULE 1 TIME EACH DAY active Not Available Not Available No t Available nystatin 100,000 unit/gram topical cream APPLY TO AFFECTED AREA 4 TIMES EACH DAY 10/23 completed Not Available Not Available Not Available fluticaso ne 500 mcg-salme terol 50 mcg/dose blistr powdr for inhalatio n Inhale 1 puff twice a day by inhalati on route. active formular y to replace symbicor t Not Available Not Available Not Available nitroglyc mj 0.4 mg sublingua l tablet DISSOLVE 1 TABLET UNDER THE TONGUE EVERY 5 MINUTES NEEDED FOR CHEST PAIN. IF 3 TABLETS ARE NEEDED, GO TO EMERGENC Y ROOM. active Not Available Not Available No t Available omeprazol e 20 mg capsule,d elayed release TAKE 2 CAPSULES 1 TIME EACH DAY active Not Available Not Available No t Available mupirocin 2 % topical ointment APPLY A THIN FILM TO THE AFFECTED AREA OF SKIN 2 TIMES EACH DAY active Not Available Not Available No t Available clobetaso l 0.05 % topical ointment APPLY A THIN FILM TO THE AFFECTED AREA OF SKIN 2 TIMES EACH DAY FOR UP TO 14 DAYS. STOP FOR 7 DAYS. REPEAT NEEDED FOR FLARES. active Not Available Not Available No t Available estradiol 0.01% (0.1 mg/gram) vaginal cream INSERT 1/2 GRAM INTO THE VAGINA 2 TIMES EACH WEEK active Not Available Not Available No t Available scopolami ne 1 mg over 3 days transderm al patch APPLY 1 PATCH DIRECTED EVERY 3 DAYS NEEDED FOR MOTION SICKNESS . active Not Available Not Available No t Available methylpre dnisolone 4 mg tablets in a dose pack TAKE ACCORDIN G TO PACKAGE INSTRUCT IONS 05/22 completed Not Available Not Available Not Available albuterol sulfate HFA 90 mcg/actua tion aerosol inhaler INHALE 2 PUFFS EVERY 4 HOURS active Not Available Not Available No t Available lisinopri l 40 mg tablet TAKE 1 TABLET 1 TIME EACH DAY active Not Available Not Available No t Available ondansetr on 4 mg disintegr ating tablet PLACE 1 TABLET UNDER THE TONGUE AND ALLOW TO DISSOLVE 2 TIMES EACH DAY NEEDED FOR NAUSEA AND VOMITING active Not Available Not Available No t Available cefdinir 300 mg capsule 05/22 completed Not Available Not Available Not Available fluticaso ne propionat e 50 mcg/actua tion nasal spray,jae pension SPRAY 1 TIME IN EACH NOSTRIL 1 TIME EACH DAY active Not Available Not Available No t Available cholecalc iferol (vitamin D3) 125 mcg (5,000 unit) capsule TAKE 1 CAPSULE 1 TIME EACH DAY active Not Available Not Available No t Available loratadin e 10 mg tablet active Not Available Not Available Not Available mometason e 0.1 % topical cream APPLY A THIN FILM TO THE AFFECTED AREA OF SKIN ON THE LEFT EAR 1 TIME EACH DAY IN THE EVENING FOR 7 DAYS, THEN FOR FLARE-UP S. active Not Available Not Available No t Available levothyro xine 112 mcg tablet TAKE 1 TABLET ONCE A DAY IN THE MORNING ON AN EMPTY STOMACH active Not Available Not Available No t Available topiramat e 50 mg tablet TAKE 1 TABLET 2 TIMES EACH DAY active Not Available Not Available No t Available nitrofura ntoin monohydra te/macroc rystals 100 mg capsule 05/22 completed Not Available Not Available Not Available duloxetin e 30 mg capsule,d elayed release TAKE 1 CAPSULE 1 TIME EACH DAY AT BEDTIME active Not Available Not Available No t Available Vitamin D active Not Available Not Meli ilable Not Available Symbicort 160 mcg-4.5 mcg/actua tion HFA aerosol inhaler Inhale 2 puffs twice a day by inhalati on route for 30 days. active Not Available Not Available No t Available cholecalc iferol (vitamin D3) 125 mcg (5,000 unit) tablet active Not Available Not Available Not Available naloxone 4 mg/actuat ion nasal spray SPRAY 1 DOSE INTO 1 NOSTRIL IN CASE OF OVERDOSE . IF PERSON DOES NOT RESPOND IN 2-3 MINUTES, SPRAY OTHER DOSE INTO OTHER NOSTRIL. active Not Available Not Available No t Available Breztri Aerospher e 160 mcg-9mcg- 4.8mcg/ac tuation HFA aerosol inhaler INHALE 2 PUFFS BY MOUTH TWICE DAILY active Not Available Not Available No t Available Veozah 45 mg tablet TAKE 1 TABLET 1 TIME EACH DAY active Not Available Not Available No t Available Vitals Date Recorded Body height Body mass index (BMI) Body weight Oxygen saturation Oxygen saturation in Arterial blood by Pulse oximetry Heart rate Respiratory rate Body temperature Systolic blood pressure Diastolic blood pressure Provider Name and Address Organization Details Last Updated DateTime 4 160.02 cm 37.9 kg/m2 99647.7 7 g 98 % 98 % 65 /min 18 /min 98 [degF] 140 mm[Hg] 80 mm[Hg] brigida junior [place] [facility] 4 15:00:30 Date Recorded Body weight Oxygen saturation Oxygen saturation in Arterial blood by Pulse oximetry Heart rate Respiratory rate Body mass index (BMI) Body height Systolic blood pressure Diastolic blood pressure Provider Name and Address Organization Details Last Updated DateTime 3 97323.3 6 g 98 % 98 % 70 /min 20 /min 38.1 kg/m2 160.02 cm 140 mm[Hg] 60 mm[Hg] nils baileytree [facility] 3 14:09:10 Date Recorded Body height Oxygen saturation Oxygen saturation in Arterial blood by Pulse oximetry Heart rate Respiratory rate Body mass index (BMI) Body weight Systolic blood pressure Diastolic blood pressure Provider Name and Address Organization Details Last Updated DateTime 3 160.02 cm 95 % 95 % 63 /min 18 /min 38.1 kg/m2 91658.3 6 g 138 mm[Hg] 78 mm[Hg] April [facility] 3 13:52:29 Social History Question Answer Notes LastModified by Organizat ion Details LastModified Time Tobacco Smoking Status Former Smoker nils yin, [facility] 10/23/2022 14:11:26 Do You Have An Advance Directive? No Information not available 05/23/2023 When Did You Quit Smoking? 16+yearssin ana hammjulia [email or web address] Information not available 10/23/2022 Do You Have A Medical Power Of Bruise Trimmer? No Information not available 05/23/2023 What Was The Date Of Your Most Recent Tobacco Screening? 05/23/2023 Information not available 05/23/2023 What Is Your Current Pack Years? 20-29packye ars [email or web address] Information not available 10/23/2022 Do You Have Any Pets? Yes [email or web address] Information not available 10/23/2022 At What Age Did You Start Smoking Tobacco? 16 [email or web address] Information not available 10/23/2022 Are There Any Smokers In Your House? No Information not available 10/23/2022 How Many Years Have You Smoked Tobacco? 25 [email or web address] Information not available 10/23/2022 Have You Recently Traveled Abroad? Yes [place] 3 Wks Ago Information not available 05/23/2023 Are You Currently In School? No Information not available 05/23/2023 How Many Years Have You Used E-cigarettes Or Vape? 6 [email or web address] Information not available 10/23/2022 Sex: Unknown Functional Status Question Answer Note LastModified by Organizat ion Details LastModified Time Do you or have you ever used any other forms of tobacco or nicotine? Yes [email or web address] Information not available 10/23/2022 Do you or have you ever used smokeless tobacco? Never used smokeless tobacco [email or web address] Information not available 10/23/2022 Are you currently employed? No Information not available 05/23/2023 Do you or have you ever used e-cigarettes or vape? Current user of electronic cigarettes [email or web address] Information not available 10/23/2022 Mental Status None recorded. Family History Nothing Reported. Medical History No medical history recorded. Gynecological HistoryNo gynecological history recorded. Obstetrics History GPAL:G 0 P 0 0 0 0 Past Encounters Encounter ID Performer Location Encounter Start Date Encounter Closed Date Diagnosis/Indication Diagnosis SNOMED-CT Code Diagnosis ICD10 Code Diagnosis Note [id number] Elke Malone NP [facility] [address] [place] [address] [address] [place] [address] 10/23/2022 13:30:41 10/23/2022 14:43:49 Chronic obstructive pulmonary disease 11620477 J44.9 Dyspnea 239946570 R06.00 Former hea vy tobacco smoker 8278039233 07896 Z87.891 History of SARS-CoV-2 29 36641605 90267999 Z86.16 [id number] Elke Malone NP [facility] [address] [place] [address] [address] [place] [address] 11/20/2022 13:44:35 11/20/2022 14:21:01 Chronic obstructive pulmonary disease 98010888 J44.9 Dyspnea 843295450 R06.00 Former hea vy tobacco smoker 3170634088 90451 Z87.891 History of SARS-CoV-2 29 18298416 17891306 Z86.16 Body mass index 30+ - obesity 230253361 Z68.38 [id number] Elke Malone NP [address] [place] [address] 05/23/2023 14:40:33 05/23/2023 15:36:31 Chronic obstructive pulmonary disease 43699221 J44.9 Dyspnea 389142394 R06.00 Former hea vy tobacco smoker 5173226651 20971 Z87.891 History of SARS-CoV-2 29 89381057 45435117 Z86.16 Body mass index 30+ - obesity 524519816 Z68.38 Health Concerns Section Related Observation LastModified by Organization Detai ls LastModified Time None Recorded Concern Status LastModified by Organization Details LastModified Time None Recorded Advance Directives Directive N: Payers Insurance Date Sequence Insurance Name Policy Number Policy Schulte Covered Member ID Schulte Member ID Guarantor Name 02/22/2024 2 [employer] [facility] (MEDICAID HMO) Rocío Bedoya [id number] Rocío Bedoya 02/22/2024 1 [place]MEDICARE REPLACEMENT HMO) [id number] Rocío Bedoya [id number] Rocío Bedoya Notes Date Note Type Note Provider Name and Address Organization Details Recorded Time 10/23/2022 text/html This 61 year old female, presents to the office today as a new patient referred by Dr. Melara for the evaluation of dyspnea.Patient complains of shortness of breath with exertion for the past year with an occasional productive cough with clear to green colored mucus production. Patient reports previous diagnosis of early stage COPD. Patient denies any inhaler or nebulizer use.Denies any inheritable lung diseases. No occupational or enviromental exposures.She is a former smoker 1 PPD x 25 years and quit 2 years ago. She is currently vaping 2 days out the week. She has residential exposure to her 3 cats and 4 dogs.A focused sleep assessment is negative for ANDREA.Denies any fever, chills, nausea,vomiting, or diarrhea. Elke Malone, EDIS [address], [place], [address], [facility] 10/25/2022 23:29:03 11/20/2022 text/html This 61 year-old female who presents to the office today for the ongoing management of COPD, medication follow up and to review the results of a recent LDCT Chest completed on 11/07/2022. Results of the Chest CT and proposed treatment plan was discussed with the patient. Patient continues to use Symbicort 160 mcg 2 puffs twice daily and notes positive benefits in use as evidenced by improved shortness of breath and improved cough. Patient has not needed her rescue inhaler. Denies any wheezing or nocturnal respiratory symptoms. Denies any fever, chills, n/v/d, abdominal pain or lower extremity edema. Elke Malone NP [address], [place], [address], [facility] 11/24/2022 21:22:40 05/23/2023 text/html This is a 62-year-old female who presents to the office today for the ongoing management of COPD.Patient denies any significant medical events since her last visit. Patient was treated 3 weeks ago for URI with Keflex and oral steroids. She does report that she is feeling better. Patient continues to use Symbicort 2 puffs twice daily and her albuterol inhaler 2 puffs daily. Patient complains of occasional wheezing that increases at night along with shortness of breath with exertion and a productive cough with yellow mucus production. Patient feels Symbicort is no longer working as well. Patient contnues to Vape but states she has decreased use. Denies any fever, chill, n/v/d, abdominal pain or lower extremity edema. Elke Malone NP [address], [place], [address], [facility] 05/23/2023 15:31:00 OBGyn Episode No OBEpisode recorded.
--- OUTSIDE RECORDS SUMMARY | 2024-08-15 12:48 | XMS_ITS | Clinical Summary ---
Author Organization [employer] Address [address] [place] [address] Care Team Providers Care Campaign Specialist Name Role Phone Brook Melara MD Primary Care Provider Allergies Active Allergy Reactions Criticality Noted Date Comments Penicillins 02/19/2022 Medications clopidogreL (PLAVIX) 75 mg tabletIndications:C oronary artery disease involving [place] coronary artery of [place] heart, unspecified whether angina present Take 75 [...] Date Harmeet rded Speak language other than Stateless at home Not on file 03/30/2023 Want [...] 02/20/2022 2:10 PM EST Plan of Treatment Health Maintenance Due Date Last Done Comments Medicare Initial AWV [id number] CT Colonography 1960 Colonoscopy 1960 Colorectal Cancer Screening 1960 FOBT/FIT 1960 Fit-DNA (Cologuard) 1960 Sigmoidoscopy 1960 Depression Screening (12+) 1972 HIV Screening 12/24/1975 Hepatitis C Screening 1978 DTAP/TDAP/TD VACCINES (1 - Tdap) 12/24/1979 Pap Smear 1981 Breast Cancer Screening 2000 Lipid Panel 2005 Pneumococcal 50+ years (1 of 1 - PCV) 2010 Shingles Vaccine (Zoster) (1 of 2) 2010 Respiratory Syncytial Virus (RSV) Adult or (1 - Risk 60-74 years 1-dose series) 2020 Tobacco Cessation Counseling and Screening (12+) 02/2002/20/2022 COVID-19 VACCINE ( - season) 11/11/202310/2020 Influenza Vaccine (Season Ended) 2024 [place] [facility] [place] [address] [place] [id number] [employer] [facility] BCBS [employer] MED[employer] ACCESS HMO MAP Advance Directives For more information, please contact: [phone] Documents on File Type Date Recorded Patient Area Counselor Expl anation Advance Directives and Livin g Will 05/24/2022 11:33 AM Care Teams Campaign Specialist Relationship Specialty Start Date End Date Brook Melara MD [address] [place] [address] Dr [place], [place] [id number] PCP - General Family Medicine 02/20/22
--- OUTSIDE RECORDS SUMMARY | 2024-08-15 12:49 | XMS_ITS | Data Portability ---
Author Organization [facility] Office Address [address] [address] Care Team Providers Care Allopathic Doctor Name Role Phone [facility] Primary Care Provider Assessment Encounter Date Assessment Date Assessment LastModified by Organization Details LastModified Time 04/11/2024 04/11/2024 Global Risk Assessment Score: High Risk. High Risk Assessment: Multiple Opioid Medication High Doses of Opioids to Manage Pain (>30 mg Morphine or equivalent) Lab work reviewed: UDS of 06/20/2023 reviewed and is appropriate. JUNIOR (prescription drug monitoring report): As of 04/11/2024 reviewed and is appropriate Last fill 03/17/2024 Inappropriate due to: Medication compliance: According to patient medications are working well. Patient denies any side effects to medications prescribed. There are no signs of tolerance. Pattern of medication use is as previously prescribed. The patient states she is taking her medications as prescribed. She still has symptoms on a continuous basis, but they are alleviated somewhat by current meds. She understands that her symptoms will not be completely eliminated by medications. The patient has been instructed as to the type of medication prescribed along with directions for use. Potential side effects have been discussed, along with risks and benefits of taking this medication. She was instructed what to do if she experiences side effects, including when to discontinue the medication and was advised to call this office in this event. Prescription refills: Medications refilled for 1 months with out changes. Medication changes are as follows none [email or web address] Not available 04/27/2024 22:23:19 05/14/2024 05/14/2024 Global Risk Assessment Score: High Risk. High Risk Assessment: Multiple Opioid Medication High Doses of Opioids to Manage Pain (>30 mg Morphine or equivalent) Lab work reviewed: UDS of 06/20/2023 reviewed and is appropriate. JUNIOR (prescription drug monitoring report): As of 05/14/2024 reviewed and is appropriate Last fill Inappropriate due to: Medication compliance: According to patient medications are working well. Patient denies any side effects to medications prescribed. There are no signs of tolerance. Pattern of medication use is as previously prescribed. The patient states she is taking her medications as prescribed. She still has symptoms on a continuous basis, but they are alleviated somewhat by current meds. She understands that her symptoms will not be completely eliminated by medications. The patient has been instructed as to the type of medication prescribed along with directions for use. Potential side effects have been discussed, along with risks and benefits of taking this medication. She was instructed what to do if she experiences side effects, including when to discontinue the medication and was advised to call this office in this event. Prescription refills: Medications refilled for 1 months with out changes. Medication changes are as follows none [email or web address] Not available 06/18/2024 17:27:54 06/11/2024 06/11/2024 Global Risk Assessment Score: High Risk. High Risk Assessment: Multiple Opioid Medication High Doses of Opioids to Manage Pain (>30 mg Morphine or equivalent) Lab work reviewed: UDS of 05/15/2024 reviewed and is appropriate. JUNIOR (prescription drug monitoring report): As of 06/11/2024 reviewed and is appropriate Last fill 05/14/2024 Inappropriate due to: Medication compliance: According to patient medications are working well. Patient denies any side effects to medications prescribed. There are no signs of tolerance. Pattern of medication use is as previously prescribed. The patient states she is taking her medications as prescribed. She still has symptoms on a continuous basis, but they are alleviated somewhat by current meds. She understands that her symptoms will not be completely eliminated by medications. The patient has been instructed as to the type of medication prescribed along with directions for use. Potential side effects have been discussed, along with risks and benefits of taking this medication. She was instructed what to do if she experiences side effects, including when to discontinue the medication and was advised to call this office in this event. Prescription refills: Medications refilled for 1 months with out changes. Medication changes are as follows none [email or web address] Not available 06/30/2024 21:10:10 07/09/2024 07/09/2024 Global Risk Assessment Score: High Risk. High Risk Assessment: Multiple Opioid Medication High Doses of Opioids to Manage Pain (>30 mg Morphine or equivalent) Lab work reviewed: UDS of 05/15/2024 reviewed and is appropriate. JUNIOR (prescription drug monitoring report): As of 07/09/2024 reviewed and is appropriate Last fill 06/13/2024 Inappropriate due to: Medication compliance: According to patient medications are working well. Patient denies any side effects to medications prescribed. There are no signs of tolerance. Pattern of medication use is as previously prescribed. The patient states she is taking her medications as prescribed. She still has symptoms on a continuous basis, but they are alleviated somewhat by current meds. She understands that her symptoms will not be completely eliminated by medications. The patient has been instructed as to the type of medication prescribed along with directions for use. Potential side effects have been discussed, along with risks and benefits of taking this medication. She was instructed what to do if she experiences side effects, including when to discontinue the medication and was advised to call this office in this event. Prescription refills: Medications refilled for 1 months with out changes. Medication changes are as follows none [email or web address] Not available 07/09/2024 15:30:50 Plan of Treatment Reminders Order Date Submit Date Provider Last Modified By Organization Details Last Modified Time Details Appointments Office Visit15 2024 03:30P M Mary Ellen De La Torre APRN Not available Not available Not available Lab drug screen, urine - Meds: methadone gabapenti n 2024 025 MUSA Shah MD [facility] [address] [place], [address], 06/18/2024 12:28:05 drug screen, urine - Meds: methadone neurontin nws 2024 025 MUSA Shah MD [facility]), [address] [place], [address], 05/27/2024 10:44:26 Referral None recorded. Procedures None recorded. Surgeries None recorded. Imaging None recorded. Medication Orders gabapenti n 600 mg tablet 2024 025 [id number], [address] [place], [address], 08/14/2024 07:02:42 methadone 10 mg tablet 2024 025 [facility]-[id number], [address] [place], [address], 08/14/2024 07:02:45 gabapenti n 600 mg tablet 2024 025 COUNT INCLUDES THE [id number], [address] [place] [address], [address], 08/14/2024 07:02:42 methadone 10 mg tablet 2024 025 [facility]-[id number], [address] [place] [address], [address], 08/14/2024 07:02:45 gabapenti n 600 mg tablet 2024 025 [facility]-[id number] [facility], [address] [place] [address], [address], 08/14/2024 07:02:42 methadone 10 mg tablet 2024 025 [facility]-[id number] [facility], [address] [place] [address], [address], 08/14/2024 07:02:45 gabapenti n 600 mg tablet 2024 025 [facility]-[id number] [id number], [address] [place] [address], [id number], 08/14/2024 07:02:42 methadone 10 mg tablet 2024 025 [facility]-[id number] [id number], [address] [place], [address], 08/14/2024 07:02:45 Patient TargetsNo targets recorded. Patient Instructions Encounter Date Encounter Id Patient Instructions Last Modified By Organization Details Last Modified Time 04/11/[id number] 1) Pain management: Will cont pain meds as Rx'ed. Patient was asked about any other scripts needing to be sent in and scripts sent if needed 2) PT: Cont HEP as tolerated; Encourage use of Moist Heat, Massage, Acupressure, Acupuncture, Meditation and /or Pool therapy to aid pain management 3) BH: Cont with local BH as planned; Encourage Activity in Moderation with Rest Breaks 4) IP: Pt not interested in IP tx's at this time [email or web address] Not available 04/11/2024 14:58:27 Patient seen today incident to a physician s previously established diagnosis and plan of care. Follow-up care provided today under the plan of care of: Mary Ortiz MD and direct supervision of: Mary Ortiz MD. Discussed goals of treatment are to reduce the major symptoms, including chronic widespread pain, fatigue, insomnia, and cognitive dysfunction. Patient educated on disease, treatment approaches, good sleep practices, and importance of treating comorbidities that contribute to symptoms. Discussed importance of exercise program. [email or web address] Not available 04/11/2024 14:58:30 05/14/2024 [id number] 1) Pain management: Will cont pain meds as Rx'ed. Patient was asked about any other scripts needing to be sent in and scripts sent if needed 2) PT: Cont HEP as tolerated; Encourage use of Moist Heat, Massage, Acupressure, Acupuncture, Meditation and /or Pool therapy to aid pain management 3) BH: Cont with local BH as planned; Encourage Activity in Moderation with Rest Breaks 4) IP: Pt not interested in IP tx's at this time [email or web address] Not available 05/14/2024 16:00:41 Patient seen today incident to a physician s previously established diagnosis and plan of care. Follow-up care provided today under the plan of care of: Mary Ortiz MD and direct supervision of: Mary Ortiz MD. Discussed goals of treatment are to reduce the major symptoms, including chronic widespread pain, fatigue, insomnia, and cognitive dysfunction. Patient educated on disease, treatment approaches, good sleep practices, and importance of treating comorbidities that contribute to symptoms. Discussed importance of exercise program. [email or web address] Not available 05/14/2024 16:00:42 06/11/2024 [id number] 1) Pain management: Will cont pain meds as Rx'ed. Patient was asked about any other scripts needing to be sent in and scripts sent if needed 2) PT: Cont HEP as tolerated; Encourage use of Moist Heat, Massage, Acupressure, Acupuncture, Meditation and /or Pool therapy to aid pain management 3) BH: Cont with local as planned; Encourage Activity in Moderation with Rest Breaks 4) IP: Pt not interested in IP tx's at this time [email or web address] Not available 06/11/2024 15:48:12 Patient seen today incident to a physician s previously established diagnosis and plan of care. Follow-up care provided today under the plan of care of: Mary Ortiz MD and direct supervision of: Mary Ortiz MD. Discussed goals of treatment are to reduce the major symptoms, including chronic widespread pain, fatigue, insomnia, and cognitive dysfunction. Patient educated on disease, treatment approaches, good sleep practices, and importance of treating comorbidities that contribute to symptoms. Discussed importance of exercise program. [email or web address] Not available 06/11/2024 15:48:13 07/09/2024 [id number] 1) Pain management: Will cont pain meds as Rx'ed. Patient was asked about any other scripts needing to be sent in and scripts sent if needed 2) PT: Cont HEP as tolerated; Encourage use of Moist Heat, Massage, Acupressure, Acupuncture, Meditation and /or Pool therapy to aid pain management 3) BH: Cont with local as planned; Encourage Activity in Moderation with Rest Breaks 4) IP: Pt not interested in IP tx's at this time [email or web address] Not available 07/09/2024 15:23:26 Patient seen today incident to a physician s previously established diagnosis and plan of care. Follow-up care provided today under the plan of care of: Mary Ortiz MD and direct supervision of: Mary Ortiz MD. Discussed goals of treatment are to reduce the major symptoms, including chronic widespread pain, fatigue, insomnia, and cognitive dysfunction. Patient educated on disease, treatment approaches, good sleep practices, and importance of treating comorbidities that contribute to symptoms. Discussed importance of exercise program. [email or web address] Not available 07/09/2024 15:23:27 Reason for Referral None Reported. Results Created Date Observation Date Name Description Value Unit Range Abnormal Flag Note LastModifiedBy Organization Detail LastModifiedTime 05/16/1905/15/2024 METHA DONE abnormal status abnormal Not Available Amanuel Shah MD [facility]) [address] [place] [address], [id number], 05/27/2024 10:44:27 05/16/19 25 05/15/2024 METHA DONE abnormal status high Not Available Amanuel Shah MD [facility]) [address] [place] [address], [address], 05/27/2024 10:44:27 05/16/19 25 05/27/2024 METHA DONE DEFIN ITIVE PANEL -LC/M S methadone >5000 NG/mL <75.0 abnormal Not Available Gloria Shah MD [facility]) [address] [place] [address], [address], 05/27/2024 10:44:27 05/16/19 25 05/27/2024 METHA DONE DEFIN ITIVE PANEL -LC/M S EDDP >5000 NG/mL <75.0 abnormal Not Available Gloria Shah MD [facility]) [address] [place] [address], [address], 05/27/2024 10:44:27 05/16/19 25 05/27/2024 GABAP ENTIN DEFIN ITIVE PANEL -LC/M S gabapentin >30162 NG/mL <5000. 0 abnormal Not Available Gloria Shah MD [facility]) [address] [place] [address], [address], 05/27/2024 10:44:26 05/16/19 25 05/15/2024 D-PRE SUMPT MICHELLE URINE DRUG REPOR T amphetamine NEGATI VE NG/mL <1000. 0 Not Available Gloria Shah MD [facility]) [address] [place] [address], [address], 05/27/2024 10:44:25 05/16/19 25 05/15/2024 D-PRE SUMPT MICHELLE URINE DRUG REPOR T benzodiazepi ne <3.3 NG/mL <200.0 Curre nt metho d may not detec t low level s of Klono pin Not Available Gloria Shah MD [facility] ([facility]) [address] [place] [address], [id number], 05/27/2024 10:44:25 05/16/19 25 05/15/2024 D-PRE SUMPT MICHELLE URINE DRUG REPOR T buprenorphin e NEGATI VE NG/mL <10.0 Not Available Gloria Shah MD [facility] ([facility]) [address] [place] [address], [address], 05/27/2024 10:44:25 05/16/19 25 05/15/2024 D-PRE SUMPT MICHELLE URINE DRUG REPOR T cannabinoid NEGATI VE NG/mL <50.0 Not Available Gloria Shah MD [facility] ([facility]) [address] [place] [address], [address], 05/27/2024 10:44:25 05/16/19 25 05/15/2024 D-PRE SUMPT MICHELLE URINE DRUG REPOR T cocaine NEGATI VE NG/mL <300.0 Not Available Gloria Shah MD [facility] ([facility]) [address] [place] [address], [address], 05/27/2024 10:44:25 05/16/19 25 05/15/2024 D-PRE SUMPT MICHELLE URINE DRUG REPOR T ethanol NEGATI VE mg/dL <50.0 Not Available Gloria Shah MD [facility] ([facility]) [address] [place] [address], [address], 05/27/2024 10:44:25 05/16/19 25 05/15/2024 D-PRE SUMPT MICHELLE URINE DRUG REPOR T methadone >1008 NG/mL <300.0 high Not Available Gloria Shah MD [facility] ([facility]) [address] [place] [address], [address], 05/27/2024 10:44:25 05/16/19 25 05/15/2024 D-PRE SUMPT MICHELLE URINE DRUG REPOR T opiates <6.4 NG/mL <300.0 Opiat es inclu flavio Codei ne,Mo rphin e, [place] morph one,H ydroc odone Not Available Gloria Shah MD [facility] ([facility]) [address] [place] [address], [address], 05/27/2024 10:44:25 05/16/19 25 05/15/2024 D-PRE SUMPT MICHELLE URINE DRUG REPOR T oxycodone 2.0 NG/mL <300.0 Not Available Gloria Shah MD [facility] ([facility]) [address] [place] [address], [address], 05/27/2024 10:44:25 05/16/19 25 05/15/2024 D-PRE SUMPT MICHELLE URINE DRUG REPOR T urine creatinine (validity test) 189.5 mg/dL 20.0 - 300.0 Not Available Gloria Shah MD [facility] ([facility]) [address] [place] [address], [address], 05/27/2024 10:44:25 06/12/19 25 06/11/2024 METHA DONE abnormal status abnormal Not Available Amanuel Shah MD [facility] ([facility]) [address] [place] [address], [address], 06/18/2024 12:28:08 06/12/19 25 06/11/2024 METHA DONE abnormal status high Not Available Amanuel Shah MD [facility] ([facility]) [address] [place] [address], [address], 06/18/2024 12:28:08 06/12/19 25 06/17/2024 METHA DONE DEFIN ITIVE PANEL -LC/M S methadone 3635.8 NG/mL <75.0 abnormal Not Available Gloria Shah MD [facility] ([facility]) [address] [place] [address], [address], 06/18/2024 12:28:06 06/12/19 25 06/17/2024 METHA DONE DEFIN ITIVE PANEL -LC/M S EDDP 4185.7 NG/mL <75.0 abnormal Not Available Gloria Shah MD [facility] ([facility]) [address] [place] [address], [address], 06/18/2024 12:28:06 06/12/19 25 06/17/2024 GABAP ENTIN DEFIN ITIVE PANEL -LC/M S gabapentin >96567 NG/mL <5000. 0 abnormal Not Available Gloria Shah MD [facility] ([facility]) [address] [place] [address], [address], 06/18/2024 12:28:06 06/12/19 25 06/12/2024 D-PRE SUMPT MICHELLE URINE DRUG REPOR T amphetamine NEGATI VE NG/mL <1000. 0 Not Available Gloria Shah MD [facility] ([facility]) [address] [place] [address], [address], 06/18/2024 12:28:05 06/12/19 25 06/12/2024 D-PRE SUMPT MICHELLE URINE DRUG REPOR T benzodiazepi ne <3.3 NG/mL <200.0 Curre nt metho d may not detec t low level s of [place] pin Not Available Gloria Shah MD [facility] ([facility]) [address] [place] [address], [address], 06/18/2024 12:28:05 06/12/19 25 06/12/2024 D-PRE SUMPT MICHELLE URINE DRUG REPOR T buprenorphin e NEGATI VE NG/mL <10.0 Not Available Gloria Shah MD [facility] ([facility]) [address] [place] [address], [address], 06/18/2024 12:28:05 06/12/19 25 06/12/2024 D-PRE SUMPT MICHELLE URINE DRUG REPOR T cannabinoid NEGATI VE NG/mL <50.0 Not Available Gloria Shah MD [facility] ([facility]) [address] [place] [address] [place], [address], 06/18/2024 12:28:05 06/12/19 25 06/12/2024 D-PRE SUMPT MICHELLE URINE DRUG REPOR T cocaine NEGATI VE NG/mL <300.0 Not Available Gloria Shah MD [facility] ([facility]) [address] [place] [address], [address], 06/18/2024 12:28:05 06/12/19 25 06/12/2024 D-PRE SUMPT MICHELLE URINE DRUG REPOR T ethanol NEGATI VE mg/dL <50.0 Not Available Gloria Shah MD [facility] ([facility]) [address] [place] [address], [address], 06/18/2024 12:28:05 06/12/19 25 06/12/2024 D-PRE SUMPT MICHELLE URINE DRUG REPOR T methadone >1008 NG/mL <300.0 high Not Available Gloria Shah MD [facility] ([facility]) [address] [place] [address], [address], 06/18/2024 12:28:05 06/12/19 25 06/12/2024 D-PRE SUMPT MICHELLE URINE DRUG REPOR T opiates <6.4 NG/mL <300.0 Opiat es inclu flavio Codei ne,Mo rphin e, [place] morph one,H ydroc odone Not Available Gloria Shah MD [facility] ([facility]) [address] [place] [address], [address], 06/18/2024 12:28:05 06/12/19 25 06/12/2024 D-PRE SUMPT MICHELLE URINE DRUG REPOR T oxycodone 0 NG/mL <300.0 Not Available Gloria Shah MD [facility]) [address] [place] [address], [address], 06/18/2024 12:28:05 06/12/19 25 06/12/2024 D-PRE SUMPT MICHELLE URINE DRUG REPOR T urine creatinine (validity test) 186.6 mg/dL 20.0 - 300.0 Not Available Gloria Shah MD [facility] ([facility]) [address] [facility], [place], [address], 06/18/2024 12:28:05 07/10/19 25 rhyth m strip , EKG* No observ ation record ed. [email or web address] Not Available 2024 11:54:15 Result Notes None recorded. Problems Name Problem SNOMED Code Status Onset Date Resolution Date Notes Provider Name and Address Organization Details Recorded Time Drug dependenc e 619202339 Active 2012 (304.90)D rug Dependenc e Not Otherwise Specified Unspecifi ed Not Available [facility] 2 22:32:29 Depressiv e disorder 91931770 Active (311)Depr essive Disorder, NOS Not Available [facility] 2 22:32:29 Chronic pain 02016503 Active 2012 (338.29)O ther Chronic Pain Not Available [facility] 2 22:32:29 Lumbosacr al spondylos is without myelopath y 23614509 Active 2012 (721.3)Rena mbosacral Spondylos is W/O Myelopath y/ Facet Arthropat hy Not Available [facility] 2 22:32:29 Displacem ent of lumbar intervert ebral disc without myelopath y 09781674 Active 2012 (722.10)L umbar Disc Displacem ent Without Myelopath y/HNP Not Available [facility] 2 22:32:29 Degenerat ion of intervert ebral disc 12366522 Active 2012 (722.52)L umbar or Lumbosacr al Disc Degenerat ion Not Available [facility] 2 22:32:29 Cervical post-lami nectomy syndrome 637771795 Active 2012 (722.81)P ostlamine ctomy Syndrome of Cervical Region KATHARINA Joya [address], [place], [address] , [facility] 4 15:23:24 Lumbar post-lami nectomy syndrome 429623930 Active (722.83)P ostlamine ctomy Syndrome of Lumbar Region Bridgette mares, PA [address] [facility], [place], [address] , [facility] 4 15:24:07 Disorder of trunk 738473913 Active 2012 (724.4)Th oracic or Lumbosacr al Neuritis or Radiculit is Not Otherwise Specified Not Available [facility] 2 22:32:29 Cramp in limb 989582765 Active (729.82)C ramp in Limb Not Available [facility] 2 22:32:30 Disorder of bone and articular cartilage 213254474 Active 2014 (733.90)B ONE & CARTILAGE DIS NOS Not Available [facility] 2 22:32:30 Malaise and fatigue 610291014 Active (780.79)M ALAISE AND FATIGUE NEC Not Available [facility] 2 22:32:30 Reduced libido 3696795 Active (799.81)D ecreased Libido Not Available [facility] 2 22:32:30 Generaliz ed anxiety disorder 47249066 Active 2020 (F41.1)Ge neralized anxiety disorder Not Available [facility] 2 22:32:30 Posttraum atic stress disorder 44836276 Active 2021 (F43.10)P ost-traum atic stress disorder, unspecifi ed Not Available [facility] 2 22:32:30 Hypertens michelle disorder 13729298 Active 2020 (I10)Esse ntial (primary) hypertens ion Not Available [facility] 2 22:32:30 Pain of right shoulder joint 52744278660 377752 Active 2014 (M25.511) Pain in right shoulder Not Available [facility] 2 22:32:30 Pain of left shoulder joint 75680363154 551286 Active 2014 (M25.512) Pain in left shoulder Not Available [facility] 2 22:32:30 Pain of left hip joint 46174455540 9100 Active 2020 (M25.552) Pain in left hip Not Available [facility] 2 22:32:31 Lumbar spondylos is 469201789 Active 2020 (M47.26)O ther spondylos is with radiculop athy, lumbar region BridgetteKATHARINA Cantu [address] [facility], [place], [address] , [facility] 4 15:24:03 Cervical spondylos is without myelopath y 433414094 Active 2016 (M47.812) Spondylos is without myelopath y or radiculop athy, cervical region Not Available [facility] 2 22:32:31 Spondylos is without myelopath y 66477004 Active 2016 (M47.816) Spondylos is without myelopath y or radiculop athy, lumbar region Not Available [facility] 2 22:32:31 Degenerat ion of cervical intervert ebral disc 96001606 Active 2019 (M50.30)O ther cervical disc degenerat ion, unspecifi ed cervical region Not Available [facility] 2 22:32:31 Degenerat ion of lumbar intervert ebral disc 42582716 Active 2016 (M51.36)O ther intervert ebral disc degenerat ion, lumbar region KATHARINA Joya [address] [facility], [place], [address] , [facility] 4 15:23:44 Cervical radiculop athy 83948011 Active 2019 (M54.12)R adiculopa thy, cervical region Not Available [facility] 2 22:32:31 Lumbosacr al radiculop athy 3914928 Active 2019 (M54.16)R adiculopa thy, lumbar region Not Available [facility] 2 22:32:31 Finding of neck region Active 2014 (M54.2)Ce rvicalgia Not Available [facility] 2 22:32:32 Post-lami nectomy syndrome 17321336 Active 2019 (M96.1)Po stlaminec greyson syndrome, not elsewhere classifie d Not Available [facility] 2 22:32:32 Spasm 13696772 Active 2015 (R25.2)Cr amp and spasm Not Available [facility] 2 22:32:32 Finding of general energy 818066547 Active 2015 (R53.83)O ther fatigue Not Available [facility] 22:32:32 Depressio n screening Active (V79.0)Sp ecial Screening Examinati on for Depressio n Not Available [facility] 2 22:32:33 Screening for disorder Active 2014 (Z13.89)E ncounter for screening for other disorder Not Available [facility] 2 22:32:33 Long-term current use of drug therapy 241110465 Active 2016 (Z79.89)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 Please review these documents and add these problems to the patient's chart manually as needed. Problem Notes None recorded. Medical Equipment None Reported. Allergies Allergen ID Allergen Name Allergen Category Reaction Reaction Severity Criticality Documentation Date Start Date Code Code System Note Provider Name and Address Organization Details Recorded Time 13963 Product containin g penicilli n (product) medicatio n Not available Not available Not available 07/12/20212012 54985 2660 SNOMED React ion: Broke her out(M ild) Not Available [facility] 2 22:02:06 Medications Name Sig Start Date Stop Date Status Note LastModified by Organization Details LastModified Time cyclobenz aprine 10 mg tablet Take 1 twice daily PRN 10/03 completed old rx Not Available Not Available Not Available atorvasta tin 40 mg tablet TAKE 1 TABLET BY MOUTH AT BEDTIME. active Not Available Not Available No t Available clotrimaz ole 10 mg dany active Not Available Not Available Not Available prednison e 10 mg tablet TAKE ACCORDIN G TO INCLUDED INSTRUCT IONS active Not Available Not Available No t Available gabapenti n 600 mg tablet TAKE 1 TABLET 3 TIMES EACH DAY 2024 active pharmacy is not open on the weekends Not Available Not Available Not Available doxycycli ne hyclate 100 mg capsule TAKE 1 CAPSULE 2 TIMES EACH DAY FOR 10 DAYS active Not Available Not Available No t Available ketoconaz ole 2 % shampoo active Not Available Not Available Not Available azithromy isabella 250 mg tablet TAKE 2 TABLETS ON THE FIRST DAY, THEN TAKE 1 TABLET EACH DAY ON THE NEXT 4 DAYS. 10/12 completed Not Available Not Available Not Available Prozac 40 mg capsule Take 1 daily 12/20 completed Not Available Not Available Not Available ibuprofen 800 mg tablet TAKE 1 TABLET 2 TIMES EACH DAY NEEDED FOR PAIN active Not Available Not Available No t Available nystatin 100,000 unit/gram topical ointment APPLY TO AFFECTED AREA TWICE DAILY active Not Available Not Available No t Available fluconazo le 150 mg tablet TAKE 1 TABLET 1 TIME EACH DAY EVERY 3 DAYS active Not Available Not Available No t Available methadone 10 mg tablet TAKE 1 TABLET 3 TIMES EACH DAY 2024 active still sitting in MD box and is due today Not Available Not Available Not Available ibuprofen 200 mg capsule Take 2 daily as needed 01/30 completed stopped Not Available Not Available Not Available phenazopy ridine 200 mg tablet active Not Available Not Available Not Available sumatript an 25 mg tablet active Not Available Not Available Not Available lisinopri l 20 mg tablet TAKE 1 TABLET 1 TIME EACH DAY 03/14 completed Not Available Not Available Not Available famotidin e 40 mg tablet TAKE 1 TABLET 1 TIME EACH DAY AT BEDTIME active Not Available Not Available No t Available Levoxyl 100 mcg tablet 1 daily 2020 active Not Available Not Available Not Avai lable prednison e 20 mg tablet TKAE 3 TABLETS BY MOUTH ONCE DAILY ON DAYS 1-3, 2 TABLETS ON DAYS 4-6, 1 TABLET ON DAYS 7-9. active Not Available Not Available No t Available isosorbid e mononitra te ER 30 mg tablet,ex tended release 24 hr TAKE 1 TABLET 1 TIME EACH DAY active Not Available Not Available No t Available metoprolo l succinate ER 100 mg tablet,ex tended release 24 hr TAKE 1 TABLET BY MOUTH ONCE A DAY FOR HYPERTEN GUILLERMO active Not Available Not Available No t Available Toprol XL 50 mg tablet,ex tended release Take 1 daily 10/04 completed Not Available Not Available Not Available clindamyc in HCl 150 mg capsule active Not Available Not Available Not Available sumatript an 50 mg tablet TAKE 1 TABLET AT START OF HEADACHE . MAY TAKE ANOTHER TABLET IN 2 HOURS IF NEEDED. DO NOT TAKE MORE THAN 2 TABLETS IN 24 HOURS. active Not Available Not Available No t Available topiramat e 25 mg tablet 1 daily 2020 active Not Available Not Available Not Avai lable pseudoeph edrine ER 120 mg tablet,ex tended release TAKE 1 TABLET EVERY 12 HOURS NEEDED FOR NASAL CONGESTI ON active Not Available Not Available No t Available acetamino phen 300 mg-codein e 30 mg tablet TAKE 1 TABLET EVERY 6 HOURS NEEDED FOR PAIN 02/05 completed Not Available Not Available Not Available clopidogr el 75 mg tablet TAKE 1 TABLET 1 TIME EACH DAY active Not Available Not Available No t Available ciproflox acin 250 mg tablet active Not Available Not Available No t Available ciproflox acin 500 mg tablet TAKE 1 TABLET 2 TIMES EACH DAY FOR 7 DAYS active Not Available Not Available No t Available sulfameth oxazole 800 mg-trimet hoprim 160 mg tablet TAKE 1 TABLET 2 TIMES EACH DAY active Not Available Not Available No t Available triamcino lone acetonide 0.1 % topical cream active Not Available Not Available Not Available prednison e 10 mg tablets in a dose pack take as prescrib ed 2023 active Not Available Not Available Not Avai lable methocarb rosanne 750 mg tablet Take 1 tablet 3 times a day by oral route. active PTC MED Not Available Not Available No t Available meclizine 25 mg tablet TAKE 1 TABLET 3 TIMES EACH DAY NEEDED FOR DIZZINES S active Not Available Not Available No t Available desoximet asone 0.25 % topical ointment active Not Available Not Available Not Available doxycycli ne monohydra te 100 mg capsule TAKE 1 CAPSULE BY MOUTH TWICE DAILY active Not Available Not Available No t Available cephalexi n 500 mg capsule TAKE 1 CAPSULE 2 TIMES EACH DAY FOR 10 DAYS active Not Available Not Available No t Available pantopraz ole 40 mg tablet,de layed release TAKE 1 TABLET 1 TIME EACH DAY active Not Available Not Available No t Available esomepraz ole magnesium 40 mg capsule,d elayed release TAKE (1) CAPSULE BY MOUTH ONCE A DAY. active Not Available Not Available No t Available nystatin 100,000 unit/gram topical cream APPLY TO AFFECTED AREA 4 TIMES EACH DAY active Not Available Not Available No t Available nitroglyc mj 0.4 mg sublingua l tablet DISSOLVE 1 TABLET UNDER THE TONGUE EVERY 5 MINUTES NEEDED FOR CHEST PAIN. IF 3 TABLETS ARE NEEDED, GO TO EMERGENC Y ROOM. active Not Available Not Available No t Available gabapenti n 300 mg capsule Take 1 three times a day 07/19 completed old rx Not Available Not Available Not Available omeprazol e 20 mg capsule,d elayed release TAKE (2) CAPSULES BY MOUTH DAILY. active Not Available Not Available No t Available Neurontin 400 mg capsule Take 1 three times a day 05/29 completed Not Available Not Available Not Available mupirocin 2 % topical ointment APPLY [...] TAKE ACCORDIN G TO PACKAGE INSTRUCT IONS active Not Available Not Available No t Available albuterol sulfate HFA 90 mcg/actua tion aerosol inhaler INHALE 2 PUFFS EVERY 4 HOURS active Not Available Not Available No t Available lisinopri l 40 mg tablet TAKE 1 TABLET 1 TIME EACH DAY active Not Available Not Available No t Available ondansetr on 4 mg disintegr ating tablet DISSOLVE 1 TABLET IN MOUTH TWICE A DAY NEEDED FOR NAUSEA AND VOMITING . active Not Available Not Available No t Available cefdinir 300 mg capsule TAKE 1 CAPSULE EVERY 12 HOURS FOR 7 DAYS active Not Available Not Available No t Available Lipitor 10 mg tablet take one daily 2018 active Not Available Not Available Not Avai lable fluticaso ne propionat e 50 mcg/actua tion nasal spray,jae pension SPRAY 1 TIME IN EACH NOSTRIL 1 TIME EACH DAY active Not Available Not Available No t Available cholecalc iferol (vitamin D3) 125 mcg (5,000 unit) capsule TAKE 1 CAPSULE 1 TIME EACH DAY active Not Available Not Available No t Available Xanax 1 mg tablet Take 1 every 6 hours as needed 10/23 completed DONE Not Available Not Available Not Available loratadin e 10 mg tablet active [...] No t Available cholecalc iferol (vitamin D3) 10 mcg (400 unit) capsule daily 10/03 completed old rx Not Available Not Available Not Available Flexeril 5 mg tablet 1 tab Qhs or BID 12/20 completed Not Available Not Available Not Available Premarin 0.625 mg/gram vaginal cream INSERT 1/2 GRAM INTO THE VAGINA 2 TIMES EACH WEEK AT BEDTIME active Not Available Not Available No t Available Crestor 20 mg tablet Take 1 daily 01/30 completed changed to lipitor Not Available Not Available Not Available topiramat e 50 mg tablet TAKE (1) TABLET BY MOUTH TWICE A DAY. active Not Available Not Available No t Available nitrofura ntoin monohydra te/macroc rystals 100 mg capsule TAKE 1 CAPSULE BY MOUTH EVERY 12 HOURS active Not Available Not Available No t Available duloxetin e 30 mg capsule,d elayed release TAKE 1 CAPSULE BY MOUTH AT BEDTIME active Not Available Not Available No t Available Lyrica 75 mg capsule BID 06/29 completed Not Available Not Available Not Available Lyrica 100 mg capsule BID 06/29 completed Not Available Not Available Not Available Symbicort 160 mcg-4.5 mcg/actua tion HFA aerosol inhaler INHALE 2 PUFFS 2 TIMES EACH DAY active Not Available Not Available No t Available cholecalc iferol (vitamin D3) 50 mcg (2,000 unit) tablet 2 daily 2020 active Not Available Not Available Not Avai lable cholecalc iferol (vitamin D3) 125 mcg (5,000 unit) tablet active Not Available Not Available Not Available Ama Allergy 180 mg tablet Take 1 as needed 10/03 completed old rx Not Available Not Available Not Available d-mannose oral powder Prn 2020 active Not Available Not Available Not Avai lable naloxone 4 mg/actuat ion nasal spray 1 spray in 1 nostril. MR q 3 minutes active Not Available Not Available No t Available Mucus-ER MAX 1,200 mg tablet, extended release TAKE 1 TABLET BY MOUTH EVERY 12 HOURS 10/12 completed Not Available Not Available Not Available Probiotic Blend 2 billion cell-50 mg capsule 1 daily 2020 active Not Available Not Available Not Avai lable Viactiv 650 mg-12.5 mcg-40 mcg chewable tablet 2020 active Not Available Not Available Not Avai lable Breztri Aerospher e 160 mcg-9mcg- 4.8mcg/ac tuation HFA aerosol inhaler INHALE 2 PUFFS BY MOUTH TWICE DAILY active Not Available Not Available No t Available Veozah 45 mg tablet TAKE 1 TABLET BY MOUTH ONCE A DAY. active Not Available Not Available No t Available Vitals Date Recorded Body height Respiratory rate Body temperature Heart rate Body mass index (BMI) Body weight Systolic blood pressure Diastolic blood pressure Provider Name and Address Organization Details Last Updated DateTime 5 160.02 cm 16 /min 98.3 [degF] 58 /min 38.3 kg/m2 80003.9 5 g 149 mm[Hg] 88 mm[Hg] Clary LaraSl eet [facility] 5 14:41:44 Date Recorded Body height Respiratory rate Heart rate Body temperature Body mass index (BMI) Body weight Systolic blood pressure Diastolic blood pressure Provider Name and Address Organization Details Last Updated DateTime 5 160.02 cm 16 /min 73 /min 95.1 [degF] 39 kg/m2 91193.3 2 g 182 mm[Hg] 96 mm[Hg] [facility] 5 15:32:29 Date Recorded Body height Body mass index (BMI) Body weight Body temperature Respiratory rate Heart rate Systolic blood pressure Diastolic blood pressure Provider Name and Address Organization Details Last Updated DateTime 5 160.02 cm 38.6 kg/m2 48796.1 4 g 97.9 [degF] 16 /min 103 /min 148 mm[Hg] 81 mm[Hg] [facility] 5 15:22:36 Date Recorded Body height Body mass index (BMI) Body weight Body temperature Heart rate Respiratory rate Systolic blood pressure Diastolic blood pressure Provider Name and Address Organization Details Last Updated DateTime 5 160.02 cm 38.6 kg/m2 34227.1 4 g 97.9 [degF] 73 /min 16 /min 154 mm[Hg] 91 mm[Hg] [facility] 5 15:13:43 Date Recorded Body height Body mass index (BMI) Body weight Provider Name and Address Organization Details Last Updated DateTime 08/08/2024 160.02 cm 38.1 kg/m2 69957.36 g Mary Ortiz MD [address] [place], [address], [facility] 08/08/2024 14:43:57 Social History Question Answer Notes LastModified by Organizat ion Details LastModified Time Tobacco Smoking Status Never Smoker [facility] 08/15/2021 16:16:09 What Is Your Level Of Caffeine Consumption? Occasional 1-2 Per Week. Information not available 08/15/2021 Sex: Unknown Functional Status Question Answer Note LastModified by Organization D etails LastModified Time What is your level of alcohol consumption? None Information not available 08/15/2021 Mental Status None recorded. Family History Nothing Reported Notes:History : . Unknown or Non contributory Medical History No medical history recorded. Gynecological HistoryNo gynecological history recorded. Obstetrics History GPAL:G 0 P 0 0 0 0 Immunizations Vaccine Type Date Status Note Provider Nam e and Address Organization Details Recorded Time SARS-COV-2 (COVID-19) vaccine, UNSPECIFIED 08/10/2021 completed [facility] 08/15/2021 16:15:51 Past Encounters Encounter ID Performer Location Encounter Start Date Encounter Closed Date Diagnosis/Indication Diagnosis SNOMED-CT Code Diagnosis ICD10 Code Diagnosis Note [id number] Mary Ellen De La Torre, RESIDENTIAL MORTGAGE MANAGER [address] [facility] [address] [place] [address] 08/15/2021 16:10:02 08/25/2021 15:28:42 Pain of shoulder region 45547999 M25.519 Opioid dependence 060805 00 Z79.891 Cervical post-laminectomy syndrome 607099836 M96.1 Cervical radiculopathy 60406345 M54.12 Cervical s pondylosis without myelopathy 198722283 M47.812 Continuous opioid dependence 564768330 F11.20 Degenerati on of cervical intervertebral disc 29191560 M50.30 Degenerati on of lumbar intervertebral disc 13812921 M51.36 Disorder o f bone and articular cartilage 792393489 M24.10 Displaceme nt of lumbar intervertebral disc without myelopathy 54080963 M51.26 Long-term current use of drug therapy 215003879 Z79.899 Long-term drug therapy 027663770 Z79.899 Lumbar post-laminectomy syndrome 686939861 M96.1 Lumbar spondylosis 38101 0009 M47.26 Lumbosacra l radiculopathy 6172839 M54.16 Lumbosacra l spondylosis without myelopathy 67433451 M47.817 Malaise and fatigue 2717 78288 R53.81 Pain of le ft hip joint 0143855846 46949 M25.552 Pain of le ft shoulder joint 7057397287 7639589 M25.512 Pain of ri ght shoulder joint 9323758890 2986083 M25.511 Post-benny ectomy syndrome 54931038 M96.1 Spondylosi s without myelopathy 36988890 M47.595 [id number] Mary Ellen De La Torre, RESIDENTIAL MORTGAGE MANAGER [address] [facility] [address] [place] [address] 09/13/2021 15:36:37 09/13/2021 17:39:48 Pain of shoulder region 43763083 M25.519 Opioid dependence 099572 00 Z79.891 Cervical post-laminectomy syndrome 825054157 M96.1 Cervical radiculopathy 06146378 M54.12 Cervical s pondylosis without myelopathy 460532451 M47.812 Continuous opioid dependence 119993127 F11.20 Degenerati on of cervical intervertebral disc 06639784 M50.30 Degenerati on of lumbar intervertebral disc 50804513 M51.36 Disorder o f bone and articular cartilage 256280251 M24.10 Displaceme nt of lumbar intervertebral disc without myelopathy 60895167 M51.26 Long-term current use of drug therapy 995336219 Z79.899 Long-term drug therapy 095606975 Z79.899 Lumbar post-laminectomy syndrome 154862102 M96.1 Lumbar spondylosis 70345 0009 M47.26 Lumbosacra l radiculopathy 1775549 M54.16 Lumbosacra l spondylosis without myelopathy 45284645 M47.817 Malaise and fatigue 2717 58858 R53.81 Pain of le ft hip joint 0817144745 22927 M25.552 Pain of le ft shoulder joint 6723871537 0307870 M25.512 Pain of ri ght shoulder joint 0687584635 1887983 M25.511 Post-benny ectomy syndrome 98592764 M96.1 Spondylosi s without myelopathy 40821101 M47.189 [id number] Mary Ellen De La Torre, RESIDENTIAL MORTGAGE MANAGER [address] [facility] [address] [place] [address] 10/14/2021 15:14:52 10/17/2021 12:02:26 Pain of left shoulder joint 5216474330 2521148 M25.512 Pain of ri ght shoulder joint 6407593359 7709806 M25.511 Long-term current use of opiate analgesic drug 7666206878 37877 Z79.891 HP1 (CBC/Renal /Hepatic/G GT) CBC - ordered to monitor the effects of prescribed medication s. Renal/Hepa tic/GGT - ordered to monitor toxicity of renal hepatic function due to medication .Diagnosti c/Lab: Order Presumptiv e UDT (necessary for rapid results) with Definitive confirmati on for chronic pain patient, to define treatment and reinforce therapeuti c compliance ; the following apply:*Pat ient is receiving controlled medication s.Presumpt michelle UDT to identify presence of illicit/no n-prescrib ed substance( s) - Confirm positive for ongoing safe prescribin g of controlled substances .*Presumpt michelle UDT to identify presence of licit/pres cribed substance( s)-Confirm unexpected results, identify specific drug(s) in large class and ensure appropriat e use of prescribed medication (s).*Defin itive UDT inadequate ly detected by Presumptiv e UDT (gabapenti n, pregabalin , tramadol, fentanyl, tapentadol and carisoprod ol). Drug Classes: (Amp, Dilcia, Santiago, Bup, THC, JUDE, ETOH, Meth, Op, Oxy, U-Creat) Pain of sh oulder region 32931091 M25.519 Opioid dependence 611114 00 Z79.891 Cervical post-laminectomy syndrome 138064647 M96.1 Cervical radiculopathy 61466708 M54.12 Cervical s pondylosis without myelopathy 058489020 M47.812 Continuous opioid dependence 816588960 F11.20 Degenerati on of cervical intervertebral disc 95955737 M50.30 Degenerati on of lumbar intervertebral disc 87735733 M51.36 Disorder o f bone and articular cartilage 293589363 M24.10 Displaceme nt of lumbar intervertebral disc without myelopathy 78939867 M51.26 Long-term current use of drug therapy 437403829 Z79.899 Long-term drug therapy 648140175 Z79.899 Lumbar post-laminectomy syndrome 588631067 M96.1 Lumbar spondylosis 22261 0009 M47.26 Lumbosacra l radiculopathy 9619971 M54.16 Lumbosacra l spondylosis without myelopathy 73080115 M47.817 Malaise and fatigue 2717 68480 R53.81 Pain of le ft hip joint 7016721887 29011 M25.552 Post-benny ectomy syndrome 28261230 M96.1 Spondylosi s without myelopathy 91810927 M47.317 [id number] Mary Ellen De La Torre, RESIDENTIAL MORTGAGE MANAGER [address] [facility] [address] [place] [address] 11/11/2021 15:44:28 11/17/2021 17:33:39 Pain of left shoulder joint 6103764870 9308304 M25.512 Pain of ri ght shoulder joint 0179220421 0964847 M25.511 Long-term current use of opiate analgesic drug 6951410395 14689 Z79.891 Pain of sh oulder region 58236572 M25.519 Opioid dependence 024825 00 Z79.891 Cervical post-laminectomy syndrome 507274640 M96.1 Cervical radiculopathy 71118425 M54.12 Cervical s pondylosis without myelopathy 556885062 M47.812 Continuous opioid dependence 283680222 F11.20 Degenerati on of cervical intervertebral disc 71527291 M50.30 Degenerati on of lumbar intervertebral disc 08367255 M51.36 Disorder o f bone and articular cartilage 753773790 M24.10 Displaceme nt of lumbar intervertebral disc without myelopathy 78897899 M51.26 Long-term current use of drug therapy 958664417 Z79.899 Long-term drug therapy 573486931 Z79.899 Lumbar post-laminectomy syndrome 373297824 M96.1 Lumbar spondylosis 55497 0009 M47.26 Lumbosacra l radiculopathy 7987443 M54.16 Lumbosacra l spondylosis without myelopathy 17017672 M47.817 Malaise and fatigue 2717 54572 R53.81 Pain of le ft hip joint 2676934906 36730 M25.552 Post-benny ectomy syndrome 07177346 M96.1 Spondylosi s without myelopathy 54926095 M47.816 Pain of le ft shoulder joint 6718930678 9581931 M25.512 Pain of ri ght shoulder joint 1681888086 6666662 M25.336 [id number] Mary Ellen PerezDavid De La Torre, RESIDENTIAL MORTGAGE MANAGER [address] [facility] [address] [place] [address] 12/08/2021 16:03:11 12/09/2021 11:49:31 Pain of left shoulder joint 2259978435 0513041 M25.512 Pain of ri ght shoulder joint 2852369765 7146181 M25.511 Long-term current use of opiate analgesic drug 2579615142 10542 Z79.891 Pain of sh oulder region 97145244 M25.519 Opioid dependence 899185 00 Z79.891 Cervical post-laminectomy syndrome 722055083 M96.1 Cervical radiculopathy 05569406 M54.12 Cervical s pondylosis without myelopathy 689747802 M47.812 Continuous opioid dependence 032409927 F11.20 Degenerati on of cervical intervertebral disc 21607923 M50.30 Degenerati on of lumbar intervertebral disc 51826653 M51.36 Disorder o f bone and articular cartilage 630079169 M24.10 Displaceme nt of lumbar intervertebral disc without myelopathy 14769181 M51.26 Long-term current use of drug therapy 972903205 Z79.899 Long-term drug therapy 181561646 Z79.899 Lumbar post-laminectomy syndrome 487216728 M96.1 Lumbar spondylosis 44080 0009 M47.26 Lumbosacra l radiculopathy 7541480 M54.16 Lumbosacra l spondylosis without myelopathy 23872766 M47.817 Malaise and fatigue 2717 57931 R53.81 Pain of le ft hip joint 4301168324 83782 M25.552 Post-benny ectomy syndrome 99403018 M96.1 Spondylosi s without myelopathy 48650716 M47.816 Pain of le ft shoulder joint 7985125782 9366733 M25.512 Pain of ri ght shoulder joint 8366772840 7434927 M25.552 [id number] Bianka Royal, RESIDENTIAL MORTGAGE MANAGER [address] [place] [address] 01/09/2022 14:25:27 01/09/2022 15:19:08 Long-term current use of opiate analgesic drug 6723178996 04420 Z79.891 Diagnostic /Lab: Order Presumptiv e UDT (necessary for rapid results) with Definitive confirmati on for chronic pain patient, to define treatment and reinforce therapeuti c compliance ; the following apply: [Presumpti ve UDT includes: (Amp, Dilcia, Santiago, Bup, THC, JUDE, ETOH, Meth, Opi, Oxy )] *-Patient is receiving controlled medication s. *-Presumpt michelle UDT to identify presence of illicit/no n-prescrib ed substance( s) - Confirm positive for ongoing safe prescribin g of controlled substances . *-Presumpt michelle UDT to identify presence of licit/pres cribed substance( s)-Confirm unexpected results, identify specific drug(s) in large class and ensure appropriat e use of prescribed medication (s). *-Definiti ve UDT inadequate ly detected by Presumptiv e UDT (gabapenti n, pregabalin , tramadol, fentanyl, tapentadol and carisoprod ol). HP1 (CBC/Renal /Hepatic/G GT) CBC - ordered to monitor the effects of prescribed medication s. Renal/Hepa tic/GGT - ordered to monitor toxicity of renal hepatic function due to medication . Cervical post-laminectomy syndrome 655390884 M96.1 Lumbar post-laminectomy syndrome 988302459 M96.1 Lumbar spondylosis 96167 0009 M47.26 [id number] Mary Ellen De La Torre, RESIDENTIAL MORTGAGE MANAGER [address] [place] [address] 02/09/2022 13:17:52 02/10/2022 16:55:43 Lumbosacral spondylosis without myelopathy 40485405 M47.817 Pain of le ft shoulder joint 0975935075 5693306 M25.512 Pain of ri ght shoulder joint 7779952388 4583684 M25.511 Long-term current use of opiate analgesic drug 7494951429 26038 Z79.891 Pain of sh oulder region 25058039 M25.519 Opioid dependence 015130 00 Z79.891 Cervical post-laminectomy syndrome 355094228 M96.1 Cervical radiculopathy 27928479 M54.12 Cervical s pondylosis without myelopathy 242646595 M47.812 Continuous opioid dependence 852034755 F11.20 Degenerati on of cervical intervertebral disc [id number] M50.30 Degenerati on of lumbar intervertebral disc 62234773 M51.36 Disorder o f bone and articular cartilage 374933168 M24.10 Displaceme nt of lumbar intervertebral disc without myelopathy 23382326 M51.26 Long-term current use of drug therapy 079562502 Z79.899 Long-term drug therapy 305700254 Z79.899 Lumbar post-laminectomy syndrome 315098245 M96.1 Lumbar spondylosis 28327 0009 M47.26 Lumbosacra l radiculopathy 4286243 M54.16 Malaise and fatigue 2717 16319 R53.81 Pain of le ft hip joint 6484915171 24374 M25.552 Post-benny ectomy syndrome 27314363 M96.1 Spondylosi s without myelopathy 49751815 M47.992 [id number] Mary Ellen De La Torre, RESIDENTIAL MORTGAGE MANAGER [address] [facility] [address] [place] [address] 03/14/2022 15:59:15 03/17/2022 10:23:27 Lumbosacral spondylosis without myelopathy 04409407 M47.817 Pain of le ft shoulder joint 7892383426 6647741 M25.512 Pain of ri ght shoulder joint 3674255646 9984113 M25.511 Long-term current use of opiate analgesic drug 2194301689 57107 Z79.891 Pain of sh oulder region 66559843 M25.519 Opioid dependence 492214 00 Z79.891 Cervical post-laminectomy syndrome 610960227 M96.1 Cervical radiculopathy 37630239 M54.12 Cervical s pondylosis without myelopathy 734181995 M47.812 Continuous opioid dependence 954160016 F11.20 Degenerati on of cervical intervertebral disc 98669608 M50.30 Degenerati on of lumbar intervertebral disc 98320851 M51.36 Disorder o f bone and articular cartilage 958869160 M24.10 Displaceme nt of lumbar intervertebral disc without myelopathy 07947148 M51.26 Long-term current use of drug therapy 316875952 Z79.899 Long-term drug therapy 264683068 Z79.899 Lumbar post-laminectomy syndrome 109766376 M96.1 Lumbar spondylosis 47220 0009 M47.26 Lumbosacra l radiculopathy 8011234 M54.16 Malaise and fatigue 2717 78582 R53.81 Pain of le ft hip joint 0587299596 69583 M25.552 Post-benny ectomy syndrome 61567783 M96.1 Spondylosi s without myelopathy 17715308 M47.816 Pain of le ft shoulder joint 4427337322 0215182 M25.512 Pain of ri ght shoulder joint 6115043113 7683067 M25.148 [id number] KATHARINA Cherry [address] [place], [place] [address] 04/12/2022 07:45:02 04/25/2022 14:45:52 Lumbar spondylosis 263333248 M47.896 Long-term current use of opiate analgesic drug 6959518141 54949 Z79.891 Post-benny ectomy syndrome 55407432 M96.1 Chronic pain 80093371 G8 9.29 [id number] Mary Ellen De La Torre, RESIDENTIAL MORTGAGE MANAGER [address] [place], [place] [address] 05/10/2022 15:33:23 05/24/2022 12:11:06 Long-term current use of opiate analgesic drug 0172284159 32966 Z79.891 HP1 (CBC/Renal /Hepatic/G GT) CBC - ordered to monitor the effects of prescribed medication s. Renal/Hepa tic/GGT - ordered to monitor toxicity of renal hepatic function due to medication . Lumbosacra l spondylosis without myelopathy 00387336 M47.817 Pain of ri ght shoulder joint 6181441213 3289289 M25.511 Pain of le ft shoulder joint 2892937940 8108270 M25.512 Pain of sh oulder region 84156140 M25.519 Opioid dependence 567287 00 Z79.891 Cervical post-laminectomy syndrome 581310790 M96.1 Cervical radiculopathy 85030589 M54.12 Cervical s pondylosis without myelopathy 993952251 M47.812 Continuous opioid dependence 170794335 F11.20 Degenerati on of cervical intervertebral disc 46629519 M50.30 Degenerati on of lumbar intervertebral disc 75842419 M51.36 Disorder o f bone and articular cartilage 735279797 M24.10 Displaceme nt of lumbar intervertebral disc without myelopathy 81106664 M51.26 Long-term current use of drug therapy 854960879 Z79.899 Long-term drug therapy 136663813 Z79.899 Lumbar post-laminectomy syndrome 279245918 M96.1 Lumbar spondylosis 78099 0009 M47.26 Lumbosacra l radiculopathy 4050117 M54.16 Malaise and fatigue 2717 90349 R53.81 Pain of le ft hip joint 5467566428 27242 M25.552 Post-benny ectomy syndrome 93111637 M96.1 Spondylosi s without myelopathy 41669547 M47.239 [id number] Mary Ellen De La Torre, RESIDENTIAL MORTGAGE MANAGER [address] [facility] [address] [place] [address] 06/06/2022 16:11:04 06/15/2022 10:27:16 Long-term current use of opiate analgesic drug 7515440514 41886 Z79.891 Diagnostic /Lab: Order Presumptiv e UDT (necessary for rapid results) with Definitive confirmati on for chronic pain patient, to define treatment and reinforce therapeuti c compliance ; the following apply: [Presumpti ve UDT includes: (Amp, Dilcia, Santiago, Bup, THC, JUDE, ETOH, Meth, Opi, Oxy )] *-Patient is receiving controlled medication s. *-Presumpt michelle UDT to identify presence of illicit/no n-prescrib ed substance( s) - Confirm positive for ongoing safe prescribin g of controlled substances . *-Presumpt michelle UDT to identify presence of licit/pres cribed substance( s)-Confirm unexpected results, identify specific drug(s) in large class and ensure appropriat e use of prescribed medication (s). *-Definiti ve UDT inadequate ly detected by Presumptiv e UDT (gabapenti n, pregabalin , tramadol, fentanyl, tapentadol and carisoprod ol). Lumbosacra l spondylosis without myelopathy 35976200 M47.817 Pain of ri ght shoulder joint 4491928281 9021790 M25.511 Pain of le ft shoulder joint 3253623497 8152180 M25.512 Pain of sh oulder region 19320047 M25.519 Opioid dependence 743819 00 Z79.891 Cervical post-laminectomy syndrome 055361318 M96.1 Cervical radiculopathy 94943701 M54.12 Cervical s pondylosis without myelopathy 079198690 M47.812 Continuous opioid dependence 351861506 F11.20 Degenerati on of cervical intervertebral disc 92575957 M50.30 Degenerati on of lumbar intervertebral disc 49749496 M51.36 Disorder o f bone and articular cartilage 370638206 M24.10 Displaceme nt of lumbar intervertebral disc without myelopathy 36792404 M51.26 Long-term current use of drug therapy 860531610 Z79.899 Long-term drug therapy 200230719 Z79.899 Lumbar post-laminectomy syndrome 668270254 M96.1 Lumbar spondylosis 24144 0009 M47.26 Lumbosacra l radiculopathy 0449397 M54.16 Malaise and fatigue 2717 54690 R53.81 Pain of le ft hip joint 8925594990 48445 M25.552 Post-benny ectomy syndrome 88949430 M96.1 Spondylosi s without myelopathy 26720676 M47.021 [id number] Mary Ellen De La Torre, RESIDENTIAL MORTGAGE MANAGER [address] [facility] [address] [place] [address] 07/06/2022 16:41:21 07/07/2022 08:23:52 Long-term current use of opiate analgesic drug 7627013295 95300 Z79.891 Lumbosacra l spondylosis without myelopathy 64576671 M47.817 Pain of ri ght shoulder joint 9349096448 8287302 M25.511 Pain of le ft shoulder joint 8135722900 0191216 M25.512 Pain of sh oulder region 13377152 M25.519 Opioid dependence 015520 00 Z79.891 Cervical post-laminectomy syndrome 340509808 M96.1 Cervical radiculopathy 02243982 M54.12 Cervical s pondylosis without myelopathy 339154635 M47.812 Continuous opioid dependence 191402974 F11.20 Degenerati on of cervical intervertebral disc 45284061 M50.30 Degenerati on of lumbar intervertebral disc 76328246 M51.36 Disorder o f bone and articular cartilage 659037135 M24.10 Displaceme nt of lumbar intervertebral disc without myelopathy 03481635 M51.26 Long-term current use of drug therapy 127699462 Z79.899 Long-term drug therapy 222283408 Z79.899 Lumbar post-laminectomy syndrome 866969876 M96.1 Lumbar spondylosis 81713 0009 M47.26 Lumbosacra l radiculopathy 6258967 M54.16 Malaise and fatigue 2717 06044 R53.81 Pain of le ft hip joint 8584978000 65961 M25.552 Post-benny ectomy syndrome 78992472 M96.1 Spondylosi s without myelopathy 02070087 M47.546 [id number] Mary Ellen De La Torre, RESIDENTIAL MORTGAGE MANAGER [address] [place] [address] 07/27/2022 16:16:42 07/27/2022 16:57:24 Long-term current use of opiate analgesic drug 0957410169 81098 Z79.891 Diagnostic /Lab: Order Presumptiv e UDT (necessary for rapid results) with Definitive confirmati on for chronic pain patient, to define treatment and reinforce therapeuti c compliance ; the following apply: [Presumpti ve UDT includes: (Amp, Dilcia, Santiago, Bup, THC, JUDE, ETOH, Meth, Opi, Oxy )] *-Patient is receiving controlled medication s. *-Presumpt michelle UDT to identify presence of illicit/no n-prescrib ed substance( s) - Confirm positive for ongoing safe prescribin g of controlled substances . *-Presumpt michelle UDT to identify presence of licit/pres cribed substance( s)-Confirm unexpected results, identify specific drug(s) in large class and ensure appropriat e use of prescribed medication (s). *-Definiti ve UDT inadequate ly detected by Presumptiv e UDT (gabapenti n, pregabalin , tramadol, fentanyl, tapentadol and carisoprod ol). Lumbosacra l spondylosis without myelopathy 48581499 M47.817 Pain of ri ght shoulder joint 2896265194 0055552 M25.511 Pain of le ft shoulder joint 4262054822 9825119 M25.512 Pain of sh oulder region 99431082 M25.519 Opioid dependence 659556 00 Z79.891 Cervical post-laminectomy syndrome 680971983 M96.1 Cervical radiculopathy 70681801 M54.12 Cervical s pondylosis without myelopathy 932397500 M47.812 Continuous opioid dependence 073296973 F11.20 Degenerati on of cervical intervertebral disc 84186139 M50.30 Degenerati on of lumbar intervertebral disc 45193054 M51.36 Disorder o f bone and articular cartilage 892240875 M24.10 Displaceme nt of lumbar intervertebral disc without myelopathy 39703116 M51.26 Long-term current use of drug therapy 684294768 Z79.899 Long-term drug therapy 757016383 Z79.899 Lumbar post-laminectomy syndrome 306294702 M96.1 Lumbar spondylosis 25873 0009 M47.26 Lumbosacra l radiculopathy 6347230 M54.16 Malaise and fatigue 2717 78715 R53.81 Pain of le ft hip joint 7442389745 83341 M25.552 Post-benny ectomy syndrome 27745122 M96.1 Spondylosi s without myelopathy 97702603 M47.204 [id number] Mary Ellen De La Torre, RESIDENTIAL MORTGAGE MANAGER [address] [place] [address] 08/30/2022 15:22:23 08/30/2022 17:10:55 Long-term current use of opiate analgesic drug 1041542694 10219 Z79.891 Diagnostic /Lab: Order Presumptiv e UDT (necessary for rapid results) with Definitive confirmati on for chronic pain patient, to define treatment and reinforce therapeuti c compliance ; the following apply: [Presumpti ve UDT includes: (Amp, Dilcia, Santiago, Bup, THC, JUDE, ETOH, Meth, Opi, Oxy )] *-Patient is receiving controlled medication s. *-Presumpt michelle UDT to identify presence of illicit/no n-prescrib ed substance( s) - Confirm positive for ongoing safe prescribin g of controlled substances . *-Presumpt michelle UDT to identify presence of licit/pres cribed substance( s)-Confirm unexpected results, identify specific drug(s) in large class and ensure appropriat e use of prescribed medication (s). *-Definiti ve UDT inadequate ly detected by Presumptiv e UDT (gabapenti n, pregabalin , tramadol, fentanyl, tapentadol and carisoprod ol). Lumbosacra l spondylosis without myelopathy 99894157 M47.817 Pain of ri ght shoulder joint 0055419206 2584587 M25.511 Pain of le ft shoulder joint 5616985104 7921055 M25.512 Pain of sh oulder region 18701361 M25.519 Opioid dependence 899922 00 Z79.891 Cervical post-laminectomy syndrome 459556293 M96.1 Cervical radiculopathy 92759781 M54.12 Cervical s pondylosis without myelopathy 257020052 M47.812 Continuous opioid dependence 796705659 F11.20 Degenerati on of cervical intervertebral disc 03284142 M50.30 Degenerati on of lumbar intervertebral disc 65808899 M51.36 Disorder o f bone and articular cartilage 152699477 M24.10 Displaceme nt of lumbar intervertebral disc without myelopathy 16397738 M51.26 Long-term current use of drug therapy 617118300 Z79.899 Long-term drug therapy 450451810 Z79.899 Lumbar post-laminectomy syndrome 183236756 M96.1 Lumbar spondylosis 93047 0009 M47.26 Lumbosacra l radiculopathy 0053651 M54.16 Malaise and fatigue 2717 78328 R53.81 Pain of le ft hip joint 9908608129 00242 M25.552 Post-benny ectomy syndrome 68984958 M96.1 Spondylosi s without myelopathy 65195968 M47.561 [id number] Mary Ellen De La Torre, RESIDENTIAL MORTGAGE MANAGER [address] [place] [address] 10/03/2022 15:00:23 10/05/2022 15:24:12 Long-term current use of opiate analgesic drug 4154994409 05456 Z79.891 Lumbosacra l spondylosis without myelopathy 03051972 M47.817 Pain of ri ght shoulder joint 3223838877 6042924 M25.511 Pain of le ft shoulder joint 8602076757 0799845 M25.512 Pain of sh oulder region 63749288 M25.519 Opioid dependence 370763 00 Z79.891 Cervical post-laminectomy syndrome 221952793 M96.1 Cervical radiculopathy 83730367 M54.12 Cervical s pondylosis without myelopathy 764522147 M47.812 Continuous opioid dependence 043670417 F11.20 Degenerati on of cervical intervertebral disc 31490189 M50.30 Degenerati on of lumbar intervertebral disc 36000501 M51.36 Disorder o f bone and articular cartilage 869079625 M24.10 Displaceme nt of lumbar intervertebral disc without myelopathy 17030824 M51.26 Long-term current use of drug therapy 755830490 Z79.899 Long-term drug therapy 563808265 Z79.899 Lumbar post-laminectomy syndrome 542298311 M96.1 Lumbar spondylosis 03984 0009 M47.26 Lumbosacra l radiculopathy 1572074 M54.16 Malaise and fatigue 2717 72846 R53.81 Pain of le ft hip joint 9089128384 52701 M25.552 Post-benny ectomy syndrome 26079840 M96.1 Spondylosi s without myelopathy 33386758 M47.816 Spasm 56518188 R25.2 Pain of le ft ankle joint 4565639669 5602154 M25.367 [id number] Mary Ellen De La Torre, RESIDENTIAL MORTGAGE MANAGER [address] [place] [address] 10/31/2022 07:21:13 11/03/2022 11:47:53 Long-term current use of opiate analgesic drug 6205556928 04210 Z79.891 Lumbosacra l spondylosis without myelopathy 40308882 M47.817 Pain of ri ght shoulder joint 4344109033 3480730 M25.511 Pain of le ft shoulder joint 9427760320 0113156 M25.512 Pain of sh oulder region 74629445 M25.519 Opioid dependence 026975 00 Z79.891 Cervical post-laminectomy syndrome 422257676 M96.1 Cervical radiculopathy 12814071 M54.12 Cervical s pondylosis without myelopathy 815943899 M47.812 Continuous opioid dependence 826307193 F11.20 Degenerati on of cervical intervertebral disc 11358297 M50.30 Degenerati on of lumbar intervertebral disc 64977682 M51.36 Disorder o f bone and articular cartilage 749925379 M24.10 Displaceme nt of lumbar intervertebral disc without myelopathy 65491764 M51.26 Long-term current use of drug therapy 373647961 Z79.899 Long-term drug therapy 823639118 Z79.899 Lumbar post-laminectomy syndrome 848544699 M96.1 Lumbar spondylosis 12133 0009 M47.26 Lumbosacra l radiculopathy 2476615 M54.16 Malaise and fatigue 2717 79472 R53.81 Pain of le ft hip joint 8671195281 46078 M25.552 Post-benny ectomy syndrome 97194850 M96.1 Spondylosi s without myelopathy 96380325 M47.816 Spasm 17807972 R25.2 Pain of le ft ankle joint 0320886986 6222963 M25.100 [id number] Mary Ellen De La Torre, RESIDENTIAL MORTGAGE MANAGER [address] [facility] [address] [place] [address] 11/30/2022 14:55:38 12/01/2022 15:45:46 Long-term current use of opiate analgesic drug 9389035437 34752 Z79.891 Lumbosacra l spondylosis without myelopathy 57378243 M47.817 Pain of ri ght shoulder joint 7280795307 1289829 M25.511 Pain of le ft shoulder joint 9765218545 8574634 M25.512 Pain of sh oulder region 36550290 M25.519 Opioid dependence 725867 00 Z79.891 Cervical post-laminectomy syndrome 003185951 M96.1 Cervical radiculopathy 16247637 M54.12 Cervical s pondylosis without myelopathy 479813202 M47.812 Continuous opioid dependence 052323544 F11.20 Degenerati on of cervical intervertebral disc 42664392 M50.30 Degenerati on of lumbar intervertebral disc 23802122 M51.36 Disorder o f bone and articular cartilage 690819718 M24.10 Displaceme nt of lumbar intervertebral disc without myelopathy 16190874 M51.26 Long-term current use of drug therapy 404274005 Z79.899 Long-term drug therapy 366761112 Z79.899 Lumbar post-laminectomy syndrome 989973737 M96.1 Lumbar spondylosis 26652 0009 M47.26 Lumbosacra l radiculopathy 9758447 M54.16 Malaise and fatigue 2717 51692 R53.81 Pain of le ft hip joint 8407894924 94981 M25.552 Post-benny ectomy syndrome 10819725 M96.1 Spondylosi s without myelopathy 43157547 M47.816 Spasm 33047236 R25.2 Pain of le ft ankle joint 9340467444 6915522 M25.773 [id number] Mary Ellen De La Torre, RESIDENTIAL MORTGAGE MANAGER [address] [facility] [address] [place] [address] 12/25/2022 16:00:23 12/26/2022 09:05:03 Long-term current use of opiate analgesic drug 1788877139 82522 Z79.891 Diagnostic /Lab: Order Presumptiv e UDT (necessary for rapid results) with Definitive confirmati on for chronic pain patient, to define treatment and reinforce therapeuti c compliance ; the following apply:[Pre sumptive UDT includes: (Amp, Dilcia, Santiago, Bup, THC, JUDE, ETOH, Meth, Opi, Oxy )]*-Patien t is receiving controlled medication s.*-Presum ptive UDT to identify presence of illicit/no n-prescrib ed substance( s) - Confirm positive for ongoing safe prescribin g of controlled substances .*-Presump tive UDT to identify presence of licit/pres cribed substance( s)-Confirm unexpected results, identify specific drug(s) in large class and ensure appropriat e use of prescribed medication (s). _*-Definit michelle UDT inadequate ly detected by Presumptiv e UDT (gabapenti n, pregabalin , tramadol, fentanyl, tapentadol and carisoprod ol). HP1 (CBC/Renal /Hepatic/G GT) CBC - ordered to monitor the effects of prescribed medication s. Renal/Hepa tic/GGT - ordered to monitor toxicity of renal hepatic function due to medication . Lumbosacra l spondylosis without myelopathy 95045918 M47.817 Pain of ri ght shoulder joint 9938355942 7113812 M25.511 Pain of le ft shoulder joint 8802871563 8595761 M25.512 Pain of sh oulder region 84346127 M25.519 Opioid dependence 508179 00 Z79.891 Cervical post-laminectomy syndrome 890594385 M96.1 Cervical radiculopathy 11883479 M54.12 Cervical s pondylosis without myelopathy 504428020 M47.812 Continuous opioid dependence 540290642 F11.20 Degenerati on of cervical intervertebral disc 52400252 M50.30 Degenerati on of lumbar intervertebral disc 60101790 M51.36 Disorder o f bone and articular cartilage 802562398 M24.10 Displaceme nt of lumbar intervertebral disc without myelopathy 26829820 M51.26 Long-term current use of drug therapy 035759224 Z79.899 Long-term drug therapy 600920992 Z79.899 Lumbar post-laminectomy syndrome 479989375 M96.1 Lumbar spondylosis 82992 0009 M47.26 Lumbosacra l radiculopathy 5800196 M54.16 Malaise and fatigue 2717 00948 R53.81 Pain of le ft hip joint 7577892271 84079 M25.552 Post-benny ectomy syndrome 01313915 M96.1 Spondylosi s without myelopathy 36217670 M47.816 Spasm 34354001 R25.2 Pain of le ft ankle joint 1200318487 6361794 M25.787 [id number] Mary Ellen De La Torre, RESIDENTIAL MORTGAGE MANAGER [address] [facility] [address] [place] [address] 01/18/2023 13:49:14 01/18/2023 15:02:55 Long-term current use of opiate analgesic drug 0907343129 53348 Z79.891 Diagnostic /Lab: Order Presumptiv e UDT (necessary for rapid results) with Definitive confirmati on for chronic pain patient, to define treatment and reinforce therapeuti c compliance ; the following apply:[Pre sumptive UDT includes: (Amp, Dilcia, Santiago, Bup, THC, JUDE, ETOH, Meth, Opi, Oxy )]*-Patien t is receiving controlled medication s.*-Presum ptive UDT to identify presence of illicit/no n-prescrib ed substance( s) - Confirm positive for ongoing safe prescribin g of controlled substances .*-Presump tive UDT to identify presence of licit/pres cribed substance( s)-Confirm unexpected results, identify specific drug(s) in large class and ensure appropriat e use of prescribed medication (s). _*-Definit michelle UDT inadequate ly detected by Presumptiv e UDT (gabapenti n, pregabalin , tramadol, fentanyl, tapentadol and carisoprod ol). Lumbosacra l spondylosis without myelopathy 71593718 M47.817 Pain of ri ght shoulder joint 0418219428 7685796 M25.511 Pain of le ft shoulder joint 3510023031 2894805 M25.512 Pain of sh oulder region 00236850 M25.519 Opioid dependence 767251 00 Z79.891 Cervical post-laminectomy syndrome 803871884 M96.1 Cervical radiculopathy 01151998 M54.12 Cervical s pondylosis without myelopathy 608327097 M47.812 Continuous opioid dependence 017535757 F11.20 Degenerati on of cervical intervertebral disc 12582015 M50.30 Degenerati on of lumbar intervertebral disc 92458779 M51.36 Disorder o f bone and articular cartilage 416483920 M24.10 Displaceme nt of lumbar intervertebral disc without myelopathy 40200327 M51.26 Long-term current use of drug therapy 394122503 Z79.899 Long-term drug therapy 600775114 Z79.899 Lumbar post-laminectomy syndrome 096303903 M96.1 Lumbar spondylosis 29894 0009 M47.26 Lumbosacra l radiculopathy 9696776 M54.16 Malaise and fatigue 2717 83085 R53.81 Pain of le ft hip joint 7253886132 67377 M25.552 Post-benny ectomy syndrome 51764319 M96.1 Spondylosi s without myelopathy 39064633 M47.816 Spasm 54565147 R25.2 Pain of le ft ankle joint 3006546787 0108569 M25.297 [id number] Mary Ellen De La Torre, RESIDENTIAL MORTGAGE MANAGER [address] [facility] [address] [place] [address] 02/21/2023 14:56:27 02/22/2023 14:43:42 Long-term current use of opiate analgesic drug 6151637440 89181 Z79.891 Diagnostic /Lab: Order Presumptiv e UDT (necessary for rapid results) with Definitive confirmati on for chronic pain patient, to define treatment and reinforce therapeuti c compliance ; the following apply:[Pre sumptive UDT includes: (Amp, Dilcia, Santiago, Bup, THC, JUDE, ETOH, Meth, Opi, Oxy )]*-Patien t is receiving controlled medication s.*-Presum ptive UDT to identify presence of illicit/no n-prescrib ed substance( s) - Confirm positive for ongoing safe prescribin g of controlled substances .*-Presump tive UDT to identify presence of licit/pres cribed substance( s)-Confirm unexpected results, identify specific drug(s) in large class and ensure appropriat e use of prescribed medication (s). _*-Definit michelle UDT inadequate ly detected by Presumptiv e UDT (gabapenti n, pregabalin , tramadol, fentanyl, tapentadol and carisoprod ol). Lumbosacra l spondylosis without myelopathy 46429399 M47.817 Pain of ri ght shoulder joint 1739238336 5754770 M25.511 Pain of le ft shoulder joint 7732708738 1988257 M25.512 Pain of sh oulder region 03327276 M25.519 Opioid dependence 175870 00 Z79.891 Cervical post-laminectomy syndrome 554754666 M96.1 Cervical radiculopathy 09229542 M54.12 Cervical s pondylosis without myelopathy 905606029 M47.812 Continuous opioid dependence 419545626 F11.20 Degenerati on of cervical intervertebral disc 33476311 M50.30 Degenerati on of lumbar intervertebral disc 40231552 M51.36 Disorder o f bone and articular cartilage 671283184 M24.10 Displaceme nt of lumbar intervertebral disc without myelopathy 58204345 M51.26 Long-term current use of drug therapy 719427527 Z79.899 Long-term drug therapy 099324889 Z79.899 Lumbar post-laminectomy syndrome 890230968 M96.1 Lumbar spondylosis 85904 0009 M47.26 Lumbosacra l radiculopathy 8492954 M54.16 Malaise and fatigue 2717 45535 R53.81 Pain of le ft hip joint 5334172564 42769 M25.552 Post-benny ectomy syndrome 92837774 M96.1 Spondylosi s without myelopathy 51632223 M47.816 Spasm 20664703 R25.2 Pain of le ft ankle joint 5084433759 1313315 M25.160 [id number] Mary Ellen De La Torre, RESIDENTIAL MORTGAGE MANAGER [address] [facility] [address] [place] [address] 03/27/2023 15:19:00 03/28/2023 08:33:14 Long-term current use of opiate analgesic drug 2027103833 40464 Z79.891 Lumbosacra l spondylosis without myelopathy 16317342 M47.817 Pain of ri ght shoulder joint 9659332000 2950570 M25.511 Pain of le ft shoulder joint 3525834954 7968016 M25.512 Pain of sh oulder region 77430577 M25.519 Opioid dependence 466496 00 Z79.891 Cervical post-laminectomy syndrome 773808341 M96.1 Cervical radiculopathy 94775908 M54.12 Cervical s pondylosis without myelopathy 742906229 M47.812 Continuous opioid dependence 068572013 F11.20 Degenerati on of cervical intervertebral disc 19544064 M50.30 Degenerati on of lumbar intervertebral disc 55496730 M51.36 Disorder o f bone and articular cartilage 906184141 M24.10 Displaceme nt of lumbar intervertebral disc without myelopathy 81482002 M51.26 Long-term current use of drug therapy [id number] Z79.899 Long-term drug therapy 033511359 Z79.899 Lumbar post-laminectomy syndrome 110264395 M96.1 Lumbar spondylosis 33516 0009 M47.26 Lumbosacra l radiculopathy 7532943 M54.16 Malaise and fatigue 2717 32985 R53.81 Pain of le ft hip joint 7095568156 30514 M25.552 Post-benny ectomy syndrome 07064188 M96.1 Spondylosi s without myelopathy 58372056 M47.816 Spasm 16995083 R25.2 Pain of le ft ankle joint 3134039564 9232226 M25.636 [id number] Mary Ellen De La Torre, RESIDENTIAL MORTGAGE MANAGER [address] [place] [address] 05/18/2023 14:05:08 05/18/2023 14:50:18 Long-term current use of opiate analgesic drug 5610615593 88817 Z79.891 Diagnostic /Lab: Order Presumptiv e UDT (necessary for rapid results) with Definitive confirmati on for chronic pain patient, to define treatment and reinforce therapeuti c compliance ; the following apply: [Presumpti ve UDT includes: (Amp, Dilcia, Santiago, Bup, THC, JUDE, ETOH, Meth, Opi, Oxy )] *-Patient is receiving controlled medication s. *-Presumpt michelle UDT to identify presence of illicit/no n-prescrib ed substance( s) - Confirm positive for ongoing safe prescribin g of controlled substances . *-Presumpt michelle UDT to identify presence of licit/pres cribed substance( s)-Confirm unexpected results, identify specific drug(s) in large class and ensure appropriat e use of prescribed medication (s). *-Definiti ve UDT inadequate ly detected by Presumptiv e UDT (gabapenti n, pregabalin , tramadol, fentanyl, tapentadol and carisoprod ol). Lumbosacra l spondylosis without myelopathy 43389899 M47.817 Pain of ri ght shoulder joint 6321238580 3493319 M25.511 Pain of le ft shoulder joint 2824526028 9978842 M25.512 Pain of sh oulder region 94681444 M25.519 Opioid dependence 031878 00 Z79.891 Cervical post-laminectomy syndrome 919919880 M96.1 Cervical radiculopathy 56470101 M54.12 Cervical s pondylosis without myelopathy 448941681 M47.812 Continuous opioid dependence 407357420 F11.20 Degenerati on of cervical intervertebral disc 14238865 M50.30 Degenerati on of lumbar intervertebral disc 70610717 M51.36 Disorder o f bone and articular cartilage 168881738 M24.10 Displaceme nt of lumbar intervertebral disc without myelopathy 84133652 M51.26 Long-term current use of drug therapy 850884794 Z79.899 Long-term drug therapy 640531436 Z79.899 Lumbar post-laminectomy syndrome 613008219 M96.1 Lumbar spondylosis 25754 0009 M47.26 Lumbosacra l radiculopathy 7054431 M54.16 Malaise and fatigue 2717 22543 R53.81 Pain of le ft hip joint 0117006554 37837 M25.552 Post-benny ectomy syndrome 01208301 M96.1 Spondylosi s without myelopathy 07721389 M47.816 Spasm 35732337 R25.2 Pain of le ft ankle joint 1715981538 4760252 M25.535 [id number] Mary Ellen De La Torre, RESIDENTIAL MORTGAGE MANAGER [address] [facility] [address] [place] [address] 06/20/2023 15:44:10 06/20/2023 16:43:27 Long-term current use of opiate analgesic drug 6157921318 02349 Z79.891 Diagnostic /Lab: Order Presumptiv e UDT (necessary for rapid results) with Definitive confirmati on for chronic pain patient, to define treatment and reinforce therapeuti c compliance ; the following apply:[Pre sumptive UDT includes: (Amp, Dilcia, Santiago, Bup, THC, JUDE, ETOH, Meth, Opi, Oxy )]*-Patien t is receiving controlled medication s.*-Presum ptive UDT to identify presence of illicit/no n-prescrib ed substance( s) - Confirm positive for ongoing safe prescribin g of controlled substances .*-Presump tive UDT to identify presence of licit/pres cribed substance( s)-Confirm unexpected results, identify specific drug(s) in large class and ensure appropriat e use of prescribed medication (s). _*-Definit michelle UDT inadequate ly detected by Presumptiv e UDT (gabapenti n, pregabalin , tramadol, fentanyl, tapentadol and carisoprod ol). HP1 (CBC/Renal /Hepatic/G GT) CBC - ordered to monitor the effects of prescribed medication s. Renal/Hepa tic/GGT - ordered to monitor toxicity of renal hepatic function due to medication . Lumbosacra l spondylosis without myelopathy 44356095 M47.817 Pain of ri ght shoulder joint 6837935544 1801654 M25.511 Pain of le ft shoulder joint 3583044716 9720653 M25.512 Pain of sh oulder region 12565997 M25.519 Opioid dependence 995893 00 Z79.891 Cervical post-laminectomy syndrome 380916118 M96.1 Cervical radiculopathy 69702235 M54.12 Cervical s pondylosis without myelopathy 020076672 M47.812 Continuous opioid dependence 642603964 F11.20 Degenerati on of cervical intervertebral disc 54865253 M50.30 Degenerati on of lumbar intervertebral disc 79722334 M51.36 Disorder o f bone and articular cartilage 561559193 M24.10 Displaceme nt of lumbar intervertebral disc without myelopathy 48868869 M51.26 Long-term current use of drug therapy 994991367 Z79.899 Long-term drug therapy 606244973 Z79.899 Lumbar post-laminectomy syndrome 559517977 M96.1 Lumbar spondylosis 17276 0009 M47.26 Lumbosacra l radiculopathy 3644672 M54.16 Malaise and fatigue 2717 81090 R53.81 Pain of le ft hip joint 4310890236 09624 M25.552 Post-benny ectomy syndrome 70095538 M96.1 Spondylosi s without myelopathy 66811988 M47.816 Spasm 79628416 R25.2 Pain of le ft ankle joint 3513227835 8273309 M25.045 [id number] Mary Ellen De La Torre, RESIDENTIAL MORTGAGE MANAGER [address] [facility] [address] [place] [address] 07/23/2023 07:30:08 07/26/2023 11:10:36 Long-term current use of opiate analgesic drug 0160654075 86833 Z79.891 Lumbosacra l spondylosis without myelopathy 28320635 M47.817 Pain of ri ght shoulder joint 0603493717 8206296 M25.511 Pain of le ft shoulder joint 5737678123 7218901 M25.512 Pain of sh oulder region 66103822 M25.519 Opioid dependence 273469 00 Z79.891 Cervical post-laminectomy syndrome 922769782 M96.1 Cervical radiculopathy 10375701 M54.12 Cervical s pondylosis without myelopathy 224965593 M47.812 Continuous opioid dependence 093036110 F11.20 Degenerati on of cervical intervertebral disc 52957045 M50.30 Degenerati on of lumbar intervertebral disc 69856178 M51.36 Disorder o f bone and articular cartilage 418197929 M24.10 Displaceme nt of lumbar intervertebral disc without myelopathy 20244133 M51.26 Long-term current use of drug therapy 053069567 Z79.899 Long-term drug therapy 890280410 Z79.899 Lumbar post-laminectomy syndrome 860260182 M96.1 Lumbar spondylosis 67882 0009 M47.26 Lumbosacra l radiculopathy 8217122 M54.16 Malaise and fatigue 2717 96684 R53.81 Pain of le ft hip joint 7677582937 89547 M25.552 Post-benny ectomy syndrome 37603218 M96.1 Spondylosi s without myelopathy 75739129 M47.816 Spasm 93638504 R25.2 Pain of le ft ankle joint 5091089843 6955054 M25.051 [id number] Mary Ellen De La Torre, RESIDENTIAL MORTGAGE MANAGER [address] [facility] [address] [place] [address] 08/20/2023 16:20:35 08/20/2023 17:01:04 Long-term current use of opiate analgesic drug 4391725413 81517 Z79.891 Lumbosacra l spondylosis without myelopathy 91869717 M47.817 Pain of ri ght shoulder joint 1411408896 4438296 M25.511 Pain of le ft shoulder joint 3474549404 5115739 M25.512 Pain of sh oulder region 50996079 M25.519 Opioid dependence 655442 00 Z79.891 Cervical post-laminectomy syndrome 432777205 M96.1 Cervical radiculopathy 42275402 M54.12 Cervical s pondylosis without myelopathy 859879591 M47.812 Continuous opioid dependence 166737319 F11.20 Degenerati on of cervical intervertebral disc 76236807 M50.30 Degenerati on of lumbar intervertebral disc 37941609 M51.36 Disorder o f bone and articular cartilage 406156075 M24.10 Displaceme nt of lumbar intervertebral disc without myelopathy 06696576 M51.26 Long-term current use of drug therapy 495554792 Z79.899 Long-term drug therapy 978677381 Z79.899 Lumbar post-laminectomy syndrome 040413522 M96.1 Lumbar spondylosis 98978 0009 M47.26 Lumbosacra l radiculopathy 2236565 M54.16 Malaise and fatigue 2717 00207 R53.81 Pain of le ft hip joint 3863174180 09703 M25.552 Post-benny ectomy syndrome 05615540 M96.1 Spondylosi s without myelopathy 97554039 M47.816 Spasm 10498207 R25.2 Pain of le ft ankle joint 4520868239 3805957 M25.658 [id number] Mary Ellen De La Torre, RESIDENTIAL MORTGAGE MANAGER [address] [place] [address] 09/17/2023 16:26:25 09/21/2023 11:35:10 Long-term current use of opiate analgesic drug 2651176112 68116 Z79.891 Lumbosacra l spondylosis without myelopathy 39232512 M47.817 Pain of ri ght shoulder joint 0019916500 0623482 M25.511 Pain of le ft shoulder joint 8454860474 1334794 M25.512 Pain of sh oulder region 62247180 M25.519 Opioid dependence 411672 00 Z79.891 Cervical post-laminectomy syndrome 518578748 M96.1 Cervical radiculopathy 71864668 M54.12 Cervical s pondylosis without myelopathy 146774276 M47.812 Continuous opioid dependence 744487257 F11.20 Degenerati on of cervical intervertebral disc 23685862 M50.30 Degenerati on of lumbar intervertebral disc 90854224 M51.36 Disorder o f bone and articular cartilage 006108188 M24.10 Displaceme nt of lumbar intervertebral disc without myelopathy 57384315 M51.26 Long-term current use of drug therapy 531095168 Z79.899 Long-term drug therapy 696913809 Z79.899 Lumbar post-laminectomy syndrome 388309128 M96.1 Lumbar spondylosis 17254 0009 M47.26 Lumbosacra l radiculopathy 6807483 M54.16 Malaise and fatigue 2717 97302 R53.81 Pain of le ft hip joint 1885793977 59463 M25.552 Post-benny ectomy syndrome 46114320 M96.1 Spondylosi s without myelopathy 37759871 M47.816 Spasm 01479039 R25.2 Pain of le ft ankle joint 8277627186 3716360 M25.725 [id number] KATHARINA Joya [facility] [address] 4 10/15/2023 16:05:08 10/17/2023 09:08:23 Lumbar spondylosis 480762459 M47.26 Lumbar post-laminectomy syndrome 356370151 M96.1 [id number] Mary Ellen De La Torre, PATRICIA [address] [place] [address] 4 11/14/2023 08:48:00 11/20/2023 12:12:54 Lumbar spondylosis 716997011 M47.26 Lumbar post-laminectomy syndrome 437591515 M96.1 Long-term current use of opiate analgesic drug 8653852174 17641 Z79.891 Lumbosacra l spondylosis without myelopathy 44928793 M47.817 Pain of ri ght shoulder joint 7780231274 5598078 M25.511 Pain of le ft shoulder joint 6347357867 7999993 M25.512 Pain of sh oulder region 54970623 M25.519 Opioid dependence 465884 00 Z79.891 Cervical post-laminectomy syndrome 182788460 M96.1 Cervical radiculopathy 46779033 M54.12 Cervical s pondylosis without myelopathy 954752753 M47.812 Continuous opioid dependence 276397139 F11.20 Degenerati on of cervical intervertebral disc 40561939 M50.30 Degenerati on of lumbar intervertebral disc 38488779 M51.36 Disorder o f bone and articular cartilage 510428937 M24.10 Displaceme nt of lumbar intervertebral disc without myelopathy 27617222 M51.26 Long-term current use of drug therapy 937284505 Z79.899 Long-term drug therapy 257061148 Z79.899 Lumbosacra l radiculopathy 0998718 M54.16 Malaise and fatigue 2717 73460 R53.81 Pain of le ft hip joint 8430705576 69989 M25.552 Post-benny ectomy syndrome 11577986 M96.1 Spondylosi s without myelopathy 46694449 M47.816 Spasm 31909702 R25.2 Pain of le ft ankle joint 4153827020 4682588 M25.953 [id number] Mary Ellen De La Torre, RESIDENTIAL MORTGAGE MANAGER [address] [facility] [address] [place] [address] 12/14/2023 15:43:06 12/19/2023 15:15:57 Long-term current use of opiate analgesic drug 2156614159 07961 Z79.891 Diagnostic /Lab: Order Presumptiv e UDT (necessary for rapid results) with Definitive confirmati on for chronic pain patient, to define treatment and reinforce therapeuti c compliance ; the following apply: [Presumpti ve UDT includes: (Amp, Dilcia, Santiago, Bup, THC, JUDE, ETOH, Meth, Opi, Oxy )] *-Patient is receiving controlled medication s. *-Presumpt michelle UDT to identify presence of illicit/no n-prescrib ed substance( s) - Confirm positive for ongoing safe prescribin g of controlled substances . *-Presumpt michelle UDT to identify presence of licit/pres cribed substance( s)-Confirm unexpected results, identify specific drug(s) in large class and ensure appropriat e use of prescribed medication (s). *-Definiti ve UDT inadequate ly detected by Presumptiv e UDT (gabapenti n, pregabalin , tramadol, fentanyl, tapentadol and carisoprod ol). Lumbosacra l spondylosis without myelopathy 01725061 M47.817 Pain of ri ght shoulder joint 1687614223 9707388 M25.511 Pain of le ft shoulder joint 9600678538 3351519 M25.512 Pain of sh oulder region 44926231 M25.519 Opioid dependence 498875 00 Z79.891 Cervical post-laminectomy syndrome 397481235 M96.1 Cervical radiculopathy 17936761 M54.12 Cervical s pondylosis without myelopathy 739113608 M47.812 Continuous opioid dependence 204686838 F11.20 Degenerati on of cervical intervertebral disc 88579765 M50.30 Degenerati on of lumbar intervertebral disc 83672444 M51.369 Disorder o f bone and articular cartilage 552872834 M24.10 Displaceme nt of lumbar intervertebral disc without myelopathy 01075299 M51.26 Long-term current use of drug therapy 802974103 Z79.899 Long-term drug therapy 243828490 Z79.899 Lumbar post-laminectomy syndrome 147970964 M96.1 Lumbar spondylosis 59658 0009 M47.26 Lumbosacra l radiculopathy 2388489 M54.16 Malaise and fatigue 2717 69160 R53.81 Pain of le ft hip joint 7378516278 11159 M25.552 Post-benny ectomy syndrome 09379925 M96.1 Spondylosi s without myelopathy 66003988 M47.816 Spasm 92414787 R25.2 Pain of le ft ankle joint 8676233206 4987214 M25.886 [id number] Mary Ellen De La Torre, RESIDENTIAL MORTGAGE MANAGER [address] [facility] [address] [place] [address] 01/11/2024 15:41:17 01/14/2024 16:51:52 Long-term current use of opiate analgesic drug 7287059275 16582 Z79.891 Diagnostic /Lab: Order Presumptiv e UDT (necessary for rapid results) with Definitive confirmati on for chronic pain patient, to define treatment and reinforce therapeuti c compliance ; the following apply:[Pre sumptive UDT includes: (Amp, Dilcia, Santiago, Bup, THC, JUDE, ETOH, Meth, Opi, Oxy )]*-Patien t is receiving controlled medication s.*-Presum ptive UDT to identify presence of illicit/no n-prescrib ed substance( s) - Confirm positive for ongoing safe prescribin g of controlled substances .*-Presump tive UDT to identify presence of licit/pres cribed substance( s)-Confirm unexpected results, identify specific drug(s) in large class and ensure appropriat e use of prescribed medication (s). _*-Definit michelle UDT inadequate ly detected by Presumptiv e UDT (gabapenti n, pregabalin , tramadol, fentanyl, tapentadol and carisoprod ol). HP1 (CBC/Renal /Hepatic/G GT) CBC - ordered to monitor the effects of prescribed medication s. Renal/Hepa tic/GGT - ordered to monitor toxicity of renal hepatic function due to medication . Lumbosacra l spondylosis without myelopathy 71917458 M47.817 Pain of ri ght shoulder joint 1079229532 6963424 M25.511 Pain of le ft shoulder joint 4586514805 8639403 M25.512 Pain of sh oulder region 18745280 M25.519 Opioid dependence 995832 00 Z79.891 Cervical post-laminectomy syndrome 181920797 M96.1 Cervical radiculopathy 98085215 M54.12 Cervical s pondylosis without myelopathy 821007275 M47.812 Continuous opioid dependence 736176001 F11.20 Degenerati on of cervical intervertebral disc 20312745 M50.30 Degenerati on of lumbar intervertebral disc 93632974 M51.369 Disorder o f bone and articular cartilage 907251970 M24.10 Displaceme nt of lumbar intervertebral disc without myelopathy 49227748 M51.26 Long-term current use of drug therapy 734874958 Z79.899 Long-term drug therapy 429418967 Z79.899 Lumbar post-laminectomy syndrome 495912517 M96.1 Lumbar spondylosis 41549 0009 M47.26 Lumbosacra l radiculopathy 6377805 M54.16 Malaise and fatigue 2717 49879 R53.81 Pain of le ft hip joint 7153908088 50538 M25.552 Post-benny ectomy syndrome 59964794 M96.1 Spondylosi s without myelopathy 98280667 M47.816 Spasm 63511555 R25.2 Pain of le ft ankle joint 8708263826 5260874 M25.597 [id number] Mary Ortiz MD [facility] [place] [address] 02/12/2024 15:18:34 02/13/2024 14:09:59 Cervical post-laminectomy syndrome 496464374 M96.1 Lumbar post-laminectomy syndrome 873975622 M96.1 Lumbar spondylosis 72210 0009 M47.26 Lumbosacra l radiculopathy 1388551 M54.16 Degenerati on of lumbar intervertebral disc 70717809 M51.369 Cervical s pondylosis without myelopathy 436875479 M47.812 Degenerati on of cervical intervertebral disc 21478387 M50.30 Spondylosi s without myelopathy 49074149 M47.816 Cervical radiculopathy 52070424 M54.12 Long-term current use of opiate analgesic drug 6755388549 91371 Z79.891 Diagnostic /Lab: Order Presumptiv e UDT (necessary for rapid results) with Definitive confirmati on for chronic pain patient, to define treatment and reinforce therapeuti c compliance ; the following apply:[Pre sumptive UDT includes: (Amp, Dilcia, Santiago, Bup, THC, JUDE, ETOH, Meth, Opi, Oxy )]*-Patien t is receiving controlled medication s.*-Presum ptive UDT to identify presence of illicit/no n-prescrib ed substance( s) - Confirm positive for ongoing safe prescribin g of controlled substances .*-Presump tive UDT to identify presence of licit/pres cribed substance( s)-Confirm unexpected results, identify specific drug(s) in large class and ensure appropriat e use of prescribed medication (s). _*-Definit michelle UDT inadequate ly detected by Presumptiv e UDT (gabapenti n, pregabalin , tramadol, fentanyl, tapentadol and carisoprod ol). [id number] Mary Ellen De La Torre, RESIDENTIAL MORTGAGE MANAGER [address] [place] [address] 04/11/2024 14:35:38 04/11/2024 15:21:39 Long-term current use of opiate analgesic drug 2962778029 34322 Z79.891 Lumbosacra l spondylosis without myelopathy 74716087 M47.817 Pain of ri ght shoulder joint 1587665650 7070874 M25.511 Pain of le ft shoulder joint 0141448435 0567075 M25.512 Pain of sh oulder region 45270376 M25.519 Opioid dependence 012625 00 Z79.891 Cervical post-laminectomy syndrome 350152321 M96.1 Cervical radiculopathy 38020580 M54.12 Cervical s pondylosis without myelopathy 236138996 M47.812 Continuous opioid dependence 764621370 F11.20 Degenerati on of cervical intervertebral disc 05366476 M50.30 Degenerati on of lumbar intervertebral disc 45849445 M51.369 Disorder o f bone and articular cartilage 058636453 M24.10 Displaceme nt of lumbar intervertebral disc without myelopathy 34343836 M51.26 Long-term current use of drug therapy 248522241 Z79.899 Long-term drug therapy 474742787 Z79.899 Lumbar post-laminectomy syndrome 218361664 M96.1 Lumbar spondylosis 48726 0009 M47.26 Lumbosacra l radiculopathy 7338425 M54.16 Malaise and fatigue 2717 16535 R53.81 Pain of le ft hip joint 0704985303 56910 M25.552 Post-benny ectomy syndrome 25919450 M96.1 Spondylosi s without myelopathy 85797697 M47.816 Spasm 72648444 R25.2 Pain of le ft ankle joint 8227259458 2863632 M25.633 [id number] Mary Ellen PerezDavid Luznellie, RESIDENTIAL MORTGAGE MANAGER [address] [facility] [address] [place] [address] 05/14/2024 15:22:55 05/14/2024 16:19:55 Long-term current use of opiate analgesic drug 7030727639 85267 Z79.891 Diagnostic /Lab: Order Presumptiv e UDT (necessary for rapid results) with Definitive confirmati on for chronic pain patient, to define treatment and reinforce therapeuti c compliance ; the following apply: [Presumpti ve UDT includes: (Amp, Dilcia, Santiago, Bup, THC, JUDE, ETOH, Meth, Opi, Oxy )] *-Patient is receiving controlled medication s. *-Presumpt michelle UDT to identify presence of illicit/no n-prescrib ed substance( s) - Confirm positive for ongoing safe prescribin g of controlled substances . *-Presumpt michelle UDT to identify presence of licit/pres cribed substance( s)-Confirm unexpected results, identify specific drug(s) in large class and ensure appropriat e use of prescribed medication (s). *-Definiti ve UDT inadequate ly detected by Presumptiv e UDT (gabapenti n, pregabalin , tramadol, fentanyl, tapentadol and carisoprod ol). Lumbosacra l spondylosis without myelopathy 15113326 M47.817 Pain of ri ght shoulder joint 5165734754 3078702 M25.511 Pain of le ft shoulder joint 1087058562 7242130 M25.512 Pain of sh oulder region 20945725 M25.519 Opioid dependence 611934 00 Z79.891 Cervical post-laminectomy syndrome 018184615 M96.1 Cervical radiculopathy 25910133 M54.12 Cervical s pondylosis without myelopathy 993002298 M47.812 Continuous opioid dependence 829865037 F11.20 Degenerati on of cervical intervertebral disc 40683260 M50.30 Degenerati on of lumbar intervertebral disc 27960460 M51.369 Disorder o f bone and articular cartilage 790574213 M24.10 Displaceme nt of lumbar intervertebral disc without myelopathy 11879034 M51.26 Long-term current use of drug therapy 122759918 Z79.899 Long-term drug therapy 688008711 Z79.899 Lumbar post-laminectomy syndrome 548820951 M96.1 Lumbar spondylosis 10146 0009 M47.26 Lumbosacra l radiculopathy 0161812 M54.16 Malaise and fatigue 2717 11135 R53.81 Pain of le ft hip joint 5249340660 27784 M25.552 Post-benny ectomy syndrome 08457703 M96.1 Spondylosi s without myelopathy 61012822 M47.816 Spasm 41676452 R25.2 Pain of le ft ankle joint 4341978504 9375001 M25.517 [id number] Mary Ellen De La Torre, RESIDENTIAL MORTGAGE MANAGER [address] [facility] [address] [place] [address] 06/11/2024 15:20:12 06/11/2024 16:19:25 Long-term current use of opiate analgesic drug 0870899865 32383 Z79.891 Diagnostic /Lab: Order Presumptiv e UDT (necessary for rapid results) with Definitive confirmati on for chronic pain patient, to define treatment and reinforce therapeuti c compliance ; the following apply: [Presumpti ve UDT includes: (Amp, Dilcia, Santiago, Bup, THC, JUDE, ETOH, Meth, Opi, Oxy )] *-Patient is receiving controlled medication s. *-Presumpt michelle UDT to identify presence of illicit/no n-prescrib ed substance( s) - Confirm positive for ongoing safe prescribin g of controlled substances . *-Presumpt michelle UDT to identify presence of licit/pres cribed substance( s)-Confirm unexpected results, identify specific drug(s) in large class and ensure appropriat e use of prescribed medication (s). *-Definiti ve UDT inadequate ly detected by Presumptiv e UDT (gabapenti n, pregabalin , tramadol, fentanyl, tapentadol and carisoprod ol). Lumbosacra l spondylosis without myelopathy 94556537 M47.817 Pain of ri ght shoulder joint 7258021057 6543515 M25.511 Pain of le ft shoulder joint 9137037863 1389411 M25.512 Pain of sh oulder region 20710647 M25.519 Opioid dependence 856275 00 Z79.891 Cervical post-laminectomy syndrome 687689660 M96.1 Cervical radiculopathy 51760399 M54.12 Cervical s pondylosis without myelopathy 449603734 M47.812 Continuous opioid dependence 034417320 F11.20 Degenerati on of cervical intervertebral disc 67380478 M50.30 Degenerati on of lumbar intervertebral disc 76817016 M51.369 Disorder o f bone and articular cartilage 756034654 M24.10 Displaceme nt of lumbar intervertebral disc without myelopathy 23482518 M51.26 Long-term current use of drug therapy 921041634 Z79.899 Long-term drug therapy 326280268 Z79.899 Lumbar post-laminectomy syndrome 264061368 M96.1 Lumbar spondylosis 09796 0009 M47.26 Lumbosacra l radiculopathy 4967314 M54.16 Malaise and fatigue 2717 97618 R53.81 Pain of le ft hip joint 2202689528 31112 M25.552 Post-benny ectomy syndrome 04641150 M96.1 Spondylosi s without myelopathy 87662320 M47.816 Spasm 21300837 R25.2 Pain of le ft ankle joint 6879752218 0359124 M25.368 [id number] Mary Ellen De La Torre, RESIDENTIAL MORTGAGE MANAGER [address] [facility] [address] [place] [address] 07/09/2024 14:44:51 07/09/2024 15:40:22 Long-term current use of opiate analgesic drug 7550024462 88488 Z79.891 Lumbosacra l spondylosis without myelopathy 99111605 M47.817 Pain of ri ght shoulder joint 0183313360 5391887 M25.511 Pain of le ft shoulder joint 5256125998 7152817 M25.512 Pain of sh oulder region 28633906 M25.519 Opioid dependence 808864 00 Z79.891 Cervical post-laminectomy syndrome 129832329 M96.1 Cervical radiculopathy 04112340 M54.12 Cervical s pondylosis without myelopathy 688017514 M47.812 Continuous opioid dependence 923341995 F11.20 Degenerati on of cervical intervertebral disc 94840713 M50.30 Degenerati on of lumbar intervertebral disc 33594417 M51.369 Disorder o f bone and articular cartilage 596431207 M24.10 Displaceme nt of lumbar intervertebral disc without myelopathy 60046236 M51.26 Long-term current use of drug therapy [id number] Z79.899 Long-term drug therapy 798590867 Z79.899 Lumbar post-laminectomy syndrome 582029602 M96.1 Lumbar spondylosis 46596 0009 M47.26 Lumbosacra l radiculopathy 4228786 M54.16 Malaise and fatigue 2717 71174 R53.81 Pain of le ft hip joint 1771867630 04845 M25.552 Post-benny ectomy syndrome 90786184 M96.1 Spondylosi s without myelopathy 49242570 M47.816 Spasm 29331321 R25.2 Pain of le ft ankle joint 1015030286 5718808 M25.772 [id number] Mary Ellen De La Torre, RESIDENTIAL MORTGAGE MANAGER [address] [facility] [address] [place] [address] 08/08/2024 13:21:40 08/14/2024 12:17:48 Long-term current use of opiate analgesic drug [id number] 39190 Z79.891 Lumbosacra l spondylosis without myelopathy 88342611 M47.817 Pain of ri ght shoulder joint 8299246849 9048557 M25.511 Pain of le ft shoulder joint 2183829780 8853142 M25.512 Pain of sh oulder region 82403745 M25.519 Opioid dependence 511732 00 Z79.891 Cervical post-laminectomy syndrome 676814218 M96.1 Cervical radiculopathy 92521843 M54.12 Cervical s pondylosis without myelopathy 045395263 M47.812 Continuous opioid dependence 000350940 F11.20 Degenerati on of cervical intervertebral disc 62128700 M50.30 Degenerati on of lumbar intervertebral disc 72797315 M51.369 Disorder o f bone and articular cartilage 563642813 M24.10 Displaceme nt of lumbar intervertebral disc without myelopathy 76442168 M51.26 Long-term current use of drug therapy 075095398 Z79.899 Long-term drug therapy 594218953 Z79.899 Lumbar post-laminectomy syndrome 805222736 M96.1 Lumbar spondylosis 57482 0009 M47.26 Lumbosacra l radiculopathy 3332998 M54.16 Malaise and fatigue 2717 21884 R53.81 Pain of le ft hip joint 1780767970 29926 M25.552 Post-benny ectomy syndrome 81703354 M96.1 Spondylosi s without myelopathy 29614582 M47.816 Spasm 14807967 R25.2 Pain of le ft ankle joint 1063927426 2516915 M25.572 Health Concerns Section Related Observation LastModified by Organization Detai ls LastModified Time None Recorded Concern Status LastModified by Organization Details LastModified Time None Recorded Advance Directives Directive None Recorded Payers Encounter Date Sequence Insurance Name Policy Number Policy Schulte Covered Member ID Schulte Member ID Guarantor Name 04/11/2024 1 BCBS-[place]: CASE [employer] OF [facility] (MEDICARE REPLACEMENT HMO) [id number] Rocío Bedoya [id number] Rocío Bedoya 04/11/2024 2 [employer] [facility] (MEDICAID HMO) Rocío Bedoya [id number] Rocío Bedoya 05/14/2024 2 [employer] [facility] (MEDICAID HMO) Rocío Bedoya [id number] Rocío Bedoya 05/14/2024 1 [facility] (MEDICARE REPLACEMENT/AD VANTAGE - HMO) ILENE Bedoya [id number] Rocío Bedoya 06/11/2024 2 [employer] [facility] (MEDICAID HMO) Rocío Bedoya [id number] Rocío Bedoya 06/11/2024 1 [facility] (MEDICARE REPLACEMENT/AD VANTAGE - HMO) ILENE Bedoya [id number] Rocío Bedoya 07/09/2024 2 [employer] [facility] (MEDICAID HMO) Rocío Bedoya [id number] Rocío Bedoya 07/09/2024 1 [facility] (MEDICARE REPLACEMENT/AD VANTAGE - HMO) [id number] Rocío Bedoya [id number] Rocío Bedoya Notes Date Note Type Note Provider Name and Address Organization Details Recorded Time 5 text/html chief Complaint: LBP, neck pain, BLE pain Patient is here for a follow up for chronic LBP, neck pain, BLE pain . Patient states that their pain is the same from the last OV. She is hurting a ton more now that she is only getting three methadone per day. She was decreased due to her EKG. 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 I told her that she would have to discuss with Dr. Ortiz. Patient states that their medication is giving good relief as it use to. Patient is still independent with ADL's. She says that she tries to stay active and still works. She is also raising a teenage boy that her and her adopted. She says that she is able to do these things because her medication makes her pain tolerable. Patient is happy with current medication regimen and denies any SE to rx. Patient is not interested in IP treatment at this time. 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 04/27/2024 22:23:23 5 text/html chief Complaint: LBP, neck pain, BLE pain Patient is here for a follow up for chronic LBP, neck pain, BLE pain . Patient states that their pain is the same from the last OV. She is hurting a ton more now that she is only getting three methadone per day. She was decreased due to her EKG. 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 I told her that she would have to discuss with Dr. Ortiz. Patient states that their medication is giving good relief as it use to. Patient is still independent with ADL's. She says that she tries to stay active and still works. She is also raising a teenage boy that her and her adopted. She says that she is able to do these things because her medication makes her pain tolerable. Patient is happy with current medication regimen and denies any SE to rx. Patient is not interested in IP treatment at this time. She has also been diagnosed with Glaucoma since the last ov. 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 06/18/2024 17:27:58 5 text/html chief Complaint: LBP, neck pain, BLE pain Patient is here for a follow up for chronic LBP, neck pain, BLE pain . Patient states that their pain is the same from the last OV. She is hurting a ton more now that she is only getting three methadone per day. She was decreased due to her EKG. 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 I told her that she would have to discuss with Dr. Ortiz. Patient states that their medication is giving good relief as it use to. Patient is still independent with ADL's. She says that she tries to stay active and still works. She is also raising a teenage boy that her and her adopted. She says that she is able to do these things because her medication makes her pain tolerable. Patient is happy with current medication regimen and denies any SE to rx. Patient is not interested in IP treatment at this time. 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 06/30/2024 21:10:13 5 text/html chief Complaint: LBP, neck pain, BLE pain Patient is here for a follow up for chronic LBP, neck pain, BLE pain . Patient states that their pain is the same from the last OV. She is hurting a ton more now that she is only getting three methadone per day. She was decreased due to her EKG. 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 I told her that she would have to discuss with Dr. Ortiz. Patient states that their medication is giving good relief as it use to. Patient is still independent with ADL's. She says that she tries to stay active and still works. She is also raising a teenage boy that her and her adopted. She says that she is able to do these things because her medication makes her pain tolerable. Patient is happy with current medication regimen and denies any SE to rx. Patient is not interested in IP treatment at this time. 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 08/04/2024 22:33:12 OBGyn Episode No OBEpisode recorded.
--- OUTSIDE RECORDS SUMMARY | 2024-08-15 12:49 | XMS_ITS | Data Portability ---
Author Organization [facility] hospital Address [address] [place] [address] Care Team Providers Care Atv Mechanic Name Role Phone STANLEY PAEZ Primary Care Provider [phone] JESSY SHAH Pain Management Assessment No assessment recorded. Plan of Treatment Reminders Order Date Submit Date Provider Last Modified By Organization Details Last Modified Time Details Appointments None recorded. Lab cytology report, thin prep, smear or scraping, cervical or vaginal 2023 024 [employer] [facility], [address] , [facility], [place], [address], 4 12:18:54 Referral None recorded. Procedures None recorded. Surgeries None recorded. Imaging None recorded. Medication Orders Veozah 45 mg tablet 2023 024 [facility], [address] [place] [address], [id number], 5 17:32:11 estradiol 0.01% (0.1 mg/gram) vaginal cream 2023 024 [facility], [address] [place] [address], [id number], 4 17:44:35 cyanocobala min (vit B-12) 1,000 mcg/mL injection solution 2022 023 [email or web address] Not available 3 19:43:10 cyanocobala min (vit B-12) 1,000 mcg/mL injection solution 2022 023 [email or web address] [facility], [address] [place], [address], 15:14:57 cyanocobala min (vit B-12) 1,000 mcg/mL injection solution 2022 023 [email or web address] Not available 19:44:55 cyanocobala min (vit B-12) 1,000 mcg/mL injection solution 2022 023 [email or web address] Not available 08:19:20 Patient TargetsNo targets recorded. Patient Instructions Encounter Date Encounter Id Patient Instructions Last Modified By Organization Details Last Modified Time 07/26/2023 [id number] medical record request* - please send copy of cologuard results [email or web address] Not available 10/01/2023 12:05:39 ovarian cancer screening [email or web address] Not available 07/26/2023 16:43:12 Reason for Referral None Reported. Results Created Date Observation Date Name Description Value Unit Range Abnormal Flag Note LastModifiedBy Organization Detail LastModifiedTime 06/27/1906/27/2022 TSH+F REE T4 TSH 2.990 uIU/m L 0.450- 4.500 Not Available [facility] ([facility]) [address] [place], [address], 06/27/2022 07:12:01 06/27/1906/27/2022 TSH+F REE T4 T4,free(dire ct) 1.58 NG/dL 0.82-1 .77 Not Available [facility] ([facility]) [address] [place], [address], 06/27/2022 07:12:01 06/27/1906/27/2022 CBC WITH DIFFE RENTI AL/PL ATELE T WBC 8.1 x10e3 /uL 3.4-10 .8 Not Available [facility] ([facility]) [address] [place], [address], 06/27/2022 07:12:02 06/27/19 23 06/27/2022 CBC WITH DIFFE RENTI AL/PL ATELE T RBC 4.68 x10e6 /uL 3.77-5 .28 Not Available [facility] ([facility]) [address] [place], [address], 06/27/2022 07:12:02 06/27/1906/27/2022 CBC WITH DIFFE RENTI AL/PL ATELE T hemoglobin 14.6 g/dL 11.1-1 5.9 Not Available [facility] ([facility]) [address] [place], [address], 06/27/2022 07:12:02 06/27/1906/27/2022 CBC WITH DIFFE RENTI AL/PL ATELE T hematocrit 41.8 % 34.0-4 6.6 Not Available [facility] ([facility]) [address] [place], [address], 06/27/2022 07:12:02 06/27/1906/27/2022 CBC WITH DIFFE RENTI AL/PL ATELE T MCV 89 fL 79-97 Not Available [facility] ([facility]) [address] [place], [address], 06/27/2022 07:12:02 06/27/1906/27/2022 CBC WITH DIFFE RENTI AL/PL ATELE T MCH 31.2 pg 26.6-3 3.0 Not Available [facility] ([facility]) [address] [place], [address], 06/27/2022 07:12:02 06/27/19 23 06/27/2022 CBC WITH DIFFE RENTI AL/PL ATELE T MCHC 34.9 g/dL 31.5-3 5.7 Not Available [facility] ([facility]) [address] [place], [address], 06/27/2022 07:12:02 06/27/19 23 06/27/2022 CBC WITH DIFFE RENTI AL/PL ATELE T RDW 13.0 % 11.7-1 5.4 Not Available [facility] ([facility]) [address] [facility], [place], [address], 06/27/2022 07:12:02 06/27/19 23 06/27/2022 CBC WITH DIFFE RENTI AL/PL ATELE T platelets 231 x10e3 /uL 150-45 0 Not Available [facility] ([facility]) [address] [facility], [place], [address], 06/27/2022 07:12:02 06/27/19 23 06/27/2022 CBC WITH DIFFE RENTI AL/PL ATELE T neutrophils 48 % not estab. Not Available [facility] ([facility]) [address] [facility], [place], [address], 06/27/2022 07:12:02 06/27/19 23 06/27/2022 CBC WITH DIFFE RENTI AL/PL ATELE T lymphs 39 % not estab. Not Available [facility] ([facility]) [address] [facility], [place], [address], 06/27/2022 07:12:02 06/27/19 23 06/27/2022 CBC WITH DIFFE RENTI AL/PL ATELE T monocytes 8 % not estab. Not Available [facility] ([facility]) [address] [facility], [place], [address], 06/27/2022 07:12:02 06/27/19 23 06/27/2022 CBC WITH DIFFE RENTI AL/PL ATELE T eos 4 % not estab. Not Available [facility] ([facility]) [address] [facility], [place], [address], 06/27/2022 07:12:02 06/27/19 23 06/27/2022 CBC WITH DIFFE RENTI AL/PL ATELE T basos 1 % not estab. Not Available [facility] ([facility]) [address] [place], [address], 06/27/2022 07:12:02 06/27/19 23 06/27/2022 CBC WITH DIFFE RENTI AL/PL ATELE T immature cells STATIONARY FIREMAN Not Available [facility] ([facility]) [address] [place], [address], 06/27/2022 07:12:02 06/27/19 23 06/27/2022 CBC WITH DIFFE RENTI AL/PL ATELE T neutrophils (absolute) 3.8 x10e3 /uL 1.4-7. 0 Not Available [facility] ([facility]) [address] [place], [address], 06/27/2022 07:12:02 06/27/19 23 06/27/2022 CBC WITH DIFFE RENTI AL/PL ATELE T lymphs (absolute) 3.2 x10e3 /uL 0.7-3. 1 above high normal Not Available [facility] ([facility]) [address] [place], [address], 06/27/2022 07:12:02 06/27/19 23 06/27/2022 CBC WITH DIFFE RENTI AL/PL ATELE T monocytes(ab solute) 0.7 x10e3 /uL 0.1-0. 9 Not Available [facility] ([facility]) [address] [place], [address], 06/27/2022 07:12:02 06/27/19 23 06/27/2022 CBC WITH DIFFE RENTI AL/PL ATELE T eos (absolute) 0.3 x10e3 /uL 0.0-0. 4 Not Available [facility] ([facility]) [address] [place], [address], 06/27/2022 07:12:02 06/27/19 23 06/27/2022 CBC WITH DIFFE RENTI AL/PL ATELE T baso (absolute) 0.1 x10e3 /uL 0.0-0. 2 Not Available [facility] ([facility]) [address] [facility], [place], [address], 06/27/2022 07:12:02 06/27/19 23 06/27/2022 CBC WITH DIFFE RENTI AL/PL ATELE T immature granulocytes 0 % not estab. Not Available [facility] ([facility]) [address] [facility], [place], [address], 06/27/2022 07:12:02 06/27/19 23 06/27/2022 CBC WITH DIFFE RENTI AL/PL ATELE T immature grans (abs) 0.0 x10e3 /uL 0.0-0. 1 Not Available [facility] ([facility]) [address] [facility], [place], [address], 06/27/2022 07:12:02 06/27/19 23 06/27/2022 CBC WITH DIFFE RENTI AL/PL ATELE T NRBC STATIONARY FIREMAN Not Available [facility] ([facility]) [address] [facility], [place], [address], 06/27/2022 07:12:02 06/27/19 23 06/27/2022 CBC WITH DIFFE RENTI AL/PL ATELE T hematology comments: STATIONARY FIREMAN Not Available [facility] ([facility]) [address] [facility], [place], [address], 06/27/2022 07:12:02 06/27/19 23 06/27/2022 COMP. METAB OLIC PANEL (14) glucose 98 mg/dL 70-99 Not Available [facility] ([facility]) [address] [facility], [place], [address], 06/27/2022 07:12:03 06/27/19 23 06/27/2022 COMP. METAB OLIC PANEL (14) BUN 14 mg/dL 8-27 Not Available [facility] ([facility]) [address] [facility], [place], [address], 06/27/2022 07:12:03 06/27/19 23 06/27/2022 COMP. METAB OLIC PANEL (14) creatinine 1.00 mg/dL 0.57-1 .00 Not Available [facility] ([facility]) [address] [facility], [place], [address], 06/27/2022 07:12:03 06/27/19 23 06/27/2022 COMP. METAB OLIC PANEL (14) eGFR 64 mL/mi n/1.7 3 >59 Not Available [facility] ([facility]) [address] [facility], [place], [address], 06/27/2022 07:12:03 06/27/19 23 06/27/2022 COMP. METAB OLIC PANEL (14) BUN/creatini ne ratio 14 12-28 Not Available [facility] ([facility]) [address] [facility], [place], [address], 06/27/2022 07:12:03 06/27/19 23 06/27/2022 COMP. METAB OLIC PANEL (14) sodium 143 mmol/ L 134-14 4 Not Available [facility] ([facility]) [address] [facility], [place], [address], 06/27/2022 07:12:03 06/27/19 23 06/27/2022 COMP. METAB OLIC PANEL (14) potassium 4.5 mmol/ L 3.5-5. 2 Not Available [facility] ([facility]) [address] [place], [address], 06/27/2022 07:12:03 06/27/19 23 06/27/2022 COMP. METAB OLIC PANEL (14) chloride 108 mmol/ L 96-106 above high normal Not Available [facility] ([facility]) [address] [facility], [place], [address], 06/27/2022 07:12:03 06/27/19 23 06/27/2022 COMP. METAB OLIC PANEL (14) carbon dioxide, total 19 mmol/ L 20-29 below low normal Not Available [facility] ([facility]) [address] [facility], [place], [address], 06/27/2022 07:12:03 06/27/19 23 06/27/2022 COMP. METAB OLIC PANEL (14) calcium 8.8 mg/dL 8.7-10 .3 Not Available [facility] ([facility]) [address] [facility], [place], [address], 06/27/2022 07:12:03 06/27/19 23 06/27/2022 COMP. METAB OLIC PANEL (14) protein, total 6.9 g/dL 6.0-8. 5 Not Available [facility] ([facility]) [address] [facility], [place], [address], 06/27/2022 07:12:03 06/27/19 23 06/27/2022 COMP. METAB OLIC PANEL (14) albumin 4.2 g/dL 3.8-4. 8 Not Available [facility] ([facility]) [address] [place], [address], 06/27/2022 07:12:03 06/27/19 23 06/27/2022 COMP. METAB OLIC PANEL (14) globulin, total 2.7 g/dL 1.5-4. 5 Not Available [facility] ([facility]) [address] [place], [address], 06/27/2022 07:12:03 06/27/19 23 06/27/2022 COMP. METAB OLIC PANEL (14) A/G ratio 1.6 1.2-2. 2 Not Available [facility] ([facility]) [address] [facility], [place], [address], 06/27/2022 07:12:03 06/27/19 23 06/27/2022 COMP. METAB OLIC PANEL (14) bilirubin, total 0.4 mg/dL 0.0-1. 2 Not Available [facility] ([facility]) [address] [place], [address], 06/27/2022 07:12:03 06/27/19 23 06/27/2022 COMP. METAB OLIC PANEL (14) alkaline phosphatase 140 IU/L 44-121 above high normal Not Available [facility] ([facility]) [address] [place], [address], 06/27/2022 07:12:03 06/27/19 23 06/27/2022 COMP. METAB OLIC PANEL (14) AST (SGOT) 14 IU/L 0-40 Not Available [facility] ([facility]) [address] [place], [address], 06/27/2022 07:12:03 06/27/19 23 06/27/2022 COMP. METAB OLIC PANEL (14) ALT (SGPT) 12 IU/L 0-32 Not Available [facility] ([facility]) [address] [facility], [place], [address], 06/27/2022 07:12:03 06/27/19 23 06/27/2022 LIPID PANEL cholesterol, total 140 mg/dL 100-19 9 Not Available [facility] ([facility]) [address] [place], [address], 06/27/2022 07:12:04 06/27/19 23 06/27/2022 LIPID PANEL triglyceride s 105 mg/dL 0-149 Not Available [facility] ([facility]) [address] [place], [address], 06/27/2022 07:12:04 06/27/19 23 06/27/2022 LIPID PANEL HDL cholesterol 51 mg/dL >39 Not Available [facility]) [address] [place], [address], 06/27/2022 07:12:04 06/27/19 23 06/27/2022 LIPID PANEL VLDL cholesterol mich 19 mg/dL 5-40 Not Available [facility] ([facility]) [address] [place], [address], 06/27/2022 07:12:04 06/27/19 23 06/27/2022 LIPID PANEL LDL chol calc ([facility]) 70 mg/dL 0-99 Not Available [facility]) [address] [place], [address], 06/27/2022 07:12:04 06/27/19 23 06/27/2022 LIPID PANEL comment: STATIONARY FIREMAN Not Available [facility] ([facility]) [address] [place], [address], 06/27/2022 07:12:04 06/27/19 23 06/27/2022 VITAM IN B12 AND FOLAT E vitamin B12 211 pg/mL 232-12 45 below low normal Not Available [facility] ([facility]) [address] [place], [address], 06/27/2022 07:12:04 06/27/1906/27/2022 VITAM IN B12 AND FOLAT E folate (folic acid), serum 5.3 NG/mL >3.0 A serum folat e trang ntrat ion of less than 3.1 ng/mL is consi dered to repre sent clini mich defic iency . Not Available [facility] ([facility]) [address] [place], [address], 06/27/2022 07:12:04 06/27/19 23 06/27/2022 HEMOG LOBIN A1C hemoglobin A1C 5.7 % 4.8-5. 6 above high normal Predi abete s: 5.7 - 6.4 Diabe glory: >6.4 Glyce blanche contr ol for adult s with diabe glory: <7.0 Not Available [facility] ([facility]) [address] [facility], [place], [address], 06/27/2022 07:12:05 06/27/19 23 06/27/2022 VITAM IN D, 25-HY DROXY vitamin D, 25-hydroxy 36.6 NG/mL 30.0-1 00.0 Vitam in D defic iency has been defin ed by the Insti tute of Medic ine and an Endoc rine Socie ty pract ice guide line as a level of serum 25-OH vitam in D less than 20 ng/mL (1,2) . The Endoc rine Socie ty went on to fur er defin e vitam in D insuf ficie ncy as a level betwe en 21 and 29 ng/mL (2). 1. IOM (Inst itute of Medic ine). 2009. Orville ry refer ence intak es for calci um and D. Earnest emery DC: The Natio nal [facility] Press . 2. Tito arndt MF, Josr monique [place], Suly off-F errar i PEACE, et al. Evalu ation , treat ment, and preve ntion of vitam in D defic iency : an Endoc rine Socie ty clini mich pract ice guide line. JCEM. 2010; 96(7) :1911 -30. Not Available [facility] ([facility]) [address] [facility], [place], [address], 06/27/2022 07:12:06 06/27/19 23 06/27/2022 HIV AB/P2 4 AG WITH REFLE X HIV Ab/P24 Ag screen Non Reacti ve non reacti ve HIV Negat michelle HIV-1 /HIV- 2 antib odies and HIV-1 p24 antig en were NOT detec alexander. There is no labor atory evide nce of HIV infec tion. Not Available [facility] ([facility]) [address] [facility], [place], [address], 06/27/2022 07:12:07 06/27/19 23 06/27/2022 HCV ANTIB PEPE hep C virus Ab Non Reacti ve non reacti ve HCV antib pepe alone does not diffe renti ate betwe en previ ously resol nikki infec tion and activ e infec tion. Equiv ocal and React michelle HCV antib pepe resul ts shoul d be follo wed up with an HCV RNA test to suppo rt the diagn osis of activ e HCV infec tion. Not Available [facility] ([facility]) [address] [facility], [place], [address], 06/27/2022 07:12:07 06/27/19 23 06/27/2022 MAGNE SIUM magnesium 2.0 mg/dL 1.6-2. 3 Not Available [facility] ([facility]) [address] [place], [address], 06/27/2022 07:12:08 06/27/19 23 06/27/2022 AILEEN TIN ferritin 147 NG/mL 15-150 Not Available [facility] ([facility]) [address] [place], [address], 06/27/2022 07:12:09 07/26/19 24 07/31/2023 IGP,R FX APTIM A HPV ALL PTH diagnosis: Commen t NEGAT MICHELLE FOR INTRA EPITH ELIAL EFFIE Mares OR FLAKITA ANGEL . Not Available [facility] ([facility]) [address] [place], [address], 07/31/2023 12:18:54 07/26/19 24 07/31/2023 IGP,R FX APTIM A HPV ALL PTH specimen adequacy: Commen t Satis facto ry for evalu ation . Endoc ervic al and/o r squam ous metap lasti c cells (endo cervi mich compo nent) are prese nt. Not Available [facility] ([facility]) [address] [place], [address], 07/31/2023 12:18:54 07/26/19 24 07/31/2023 IGP,R FX APTIM A HPV ALL PTH clinician provided ICD10: Danielle bella Z12.4 Z11.3 Z01.4 19 Not Available [facility] ([facility]) [address] [place], [address], 07/31/2023 12:18:54 07/26/19 24 07/31/2023 IGP,R FX APTIM A HPV ALL PTH performed by: Kiersten Dacosta (ASCP ) Not Available [facility] ([facility]) [address] [place], [address], 07/31/2023 12:18:54 07/26/19 24 07/31/2023 IGP,R FX APTIM A HPV ALL PTH . . Not Available [facility] ([facility]) [address] [place], [address], 07/31/2023 12:18:54 07/26/19 24 07/31/2023 IGP,R FX APTIM A HPV ALL PTH note: Danielle bella The Pap smear is a scree jose alfredo test desig yari to aid in the detec tion of marcio ligna nt and malig nant condi tions of the uteri ne cervi x. It is not a diagn ostic proce dure and shoul d not be used as the sole means of detec ting cervi mich cance r. Both false -posi tive and false -nega tive repor ts do occur . Not Available [facility] ([facility]) [address] [place], [address], 07/31/2023 12:18:54 07/26/19 24 07/31/2023 IGP,R FX APTIM A HPV ALL PTH test methodology: Danielle bella This liqui d based ThinP rep(R ) pap test was scree yari with the use of an image guide d syste m. Not Available [facility] ([facility]) [address] [facility], [place], [address], 07/31/2023 12:18:54 07/26/19 24 07/31/2023 IGP,R FX APTIM A HPV ALL PTH . Commen t The HPV DNA refle x crite fiorella were not met with this speci men resul t there fore, no HPV testi ng was perfo rmed. Not Available [facility] ([facility]) [address] [facility], [place], [address], 07/31/2023 12:18:54 06/27/19 23 06/28/2022 XR, chest , 2 view No observ ation record ed. [email or web address] [address] , [place], [address], 06/28/2022 18:37:15 06/28/19 XR, chest , 2 view No observ ation record ed. [email or web address] [address] , [place], [address], 06/28/2022 14:20:49 07/14/19 23 07/13/2022 DEXA, axial skele ton [facility] Name: YUNIER MaresDEMARMartina Bella [facility] [address] [facility] Phys: Jani mares MD, [place] [address] : 1960 Age: 61 Sex: F Acct: [id number] Loc: G.RAD PHONE #: Exam Date: 2022 Status : REG CLI FAX #: Rad# [id number] Unit# [id number] Admit Date: 2022 EXAMS: CPT CODE: [id number] DEXA BONE DENSIT Y AXIAL 42794 CLINIC AL INFORM ATION: Follow -up osteop enia COMPAR [place]: 04/19/19 21 FINDIN GS: T score of the lumbar spine is -1.4 which is consid ered osteop enic and the fractu re risk is modera te. No signif icant interv al change in BMD. T score of the left femora l neck is -1.5 which is consid ered osteop enic and the fractu re risk is modera te. Signif icant interv al decrea se in BMD. T score right femora l neck -1.3 which is osteop enic and the fractu re risk is modera te. No signif icant interv al change in BMD. FRAX assess ment sugges ts a 10 year probab ility of major osteop orotic fractu re at 13.0% and specif ically for a hip fractu re at 1.2%. Patien t's BMI is 39 Normal LV 8 Normal LVA from T4 throug h L4 IMPRES CESIA: 1. Worsen ing osteop enia based on the T score of the left femora l neck This report is genera alexander using voice recogn ition comput er softwa re. Inadve rtent errors may have occurr ed while dictat ing report . Common sense approa ch is apprec iated and do not hesita te to call for pema warreno n when necess basil. PAGE 1 Signed Report (SACHIN NUED) [facility] Name: ESTELLE TILLMAN [facility] [place] Phys: Jani mares MD, [address] [place] [place] [address] : 1960 Age: 61 Sex: F Acct: [id number] Loc: SavannaRAD PHONE #: [phone] Exam Date: 2022 Status : REG CLI FAX #: [phone] Rad# [id number] Unit# [id number] Admit Date: 2022 EXAMS: CPT CODE: [id number] [id number] DEXA BONE DENSIT Y AXIAL 04702 Electr onical ly Signed by Juancho Mares on 2022 at 1701 Report ed and signed by: FABRICE Mares M.D. CC: Stanley mares Dictat ed Date/T clarissa: 2022 (1701) Techno logist : BARRETT BECKET T Transc ribed Date/T clarissa: 2022 (170) Transc riptio nist: DR.HAR DMITRI Mallory onic Signat ure Date/T clarissa: 2022 (170) Printe d Date/T clarissa: 2022 (1723) BATCH NO: N/A PAGE 2 Signed Report CC'ed Logic: Orderi ng Provid er: AJNI ANGEL Attend ing Provid er: JOSHUATMA Annette ANGEL Referr ing Provid er: JANI ANGEL Consul ting Provid er: ENMAA Annette ANGEL [address] [place], [address], 07/14/2022 15:57:42 07/26/19 23 07/13/2022 compl ete [facility] bernardino metry * No observ ation record ed. [address] [place], [address], 08/21/2022 18:16:17 11/08/19 23 11/07/2022 LDCT, chest , for lung cance r scree jose alfredo No observ ation record ed. [facility] ([facility]) [address] [place] [address] , [place], [address], 11/07/2022 20:15:13 11/11/19 23 11/09/2022 - scn dig breas t tomos yn clare [facility] Name: ESTELLE TILLMAN [facility] Phys: Jani [place]ares MD, [place] [address] : 1960 Age: 61 Sex: F Acct: [id number] Loc: G.MAMM PHONE #: Exam Date: 2022 Status : DEP CLI FAX #: [phone] Rad# [id number] Unit# [id number] Admit Date: 2022 EXAMS: CPT CODE: [id number] [id number] SCN DIG BREAST TOMOSY N CLARE 45544 BILATE RAL DIGITA L SCREEN ING MAMMOG DYLAN WITH CAD AND 3D TOMOSY NTHESI S, 023: CLINIC AL HISTOR Y: Routin e screen ing. No breast proble ms. Correl ation is made with prior mammog zoey rangin g from 022 to 013. FINDIN GS: Bilate ral digita l MLO and CC views with CAD and 3D tomosy nthesi s were perfor med by RT Chelsey. These demons trate scatte red fibrog landul ar densit ies, unchan ged in config uratio n from prior exams. There is no domina nt mass, christi ectura l distor tion, or suspic ious calcif icatio n, bilate rally. IMPRES CESIA: STABLE NEGATI VE MAMMOG ZOEY. RECOMM END ANNUAL SCREEN ING MAMMOG DYLAN. CAT1 - CATEGO RY 1, NEGATI VE 1YR - 1 YEAR DISCLA RADHA: *The patien t with a palpab le abnorm ality, unexpl ained by breast imagin g, should be manage d on clinic al basis by the attend ing physic leonora. *Hari bella imagin g has a false negati ve rate of 15%. *The patien t was notifi ed by mail of the result s of this examin ation. *The patien t's inform ation was entere d into a remind er system with a target due date for the next mammog faraz. *The mammog faraz was review ed by a radiol ogist and CAD. Electr onical ly Signed by ISSA DANG MD on 2022 at 1529 Report ed and signed by: ISSA DANG MD PAGE 1 Signed Report (SACHIN NUED) [facility] Name: ESTELLE TILLMAN [address] Phys: Jani [place] MD, [place] [address] : 1960 Age: 61 Sex: F Acct: [id number] Loc: G.MAMM PHONE #: Exam Date: 2022 Status : DEP CLI FAX #: [phone] Rad# [id number] Unit# [id number] Admit Date: 2022 EXAMS: CPT CODE: [id number] [id number] SCN DIG BREAST TOMOSY N CLARE [address] CC: Stanley mares Dictat ed Date/T clarissa: 2022 (1529) Techno logist : MAYI PRATT (RT)(R ) Transc ribed Date/T clarissa: 2022 (1529) Transc riptio nist: DR.HAG YULI Mallory onic Signat ure Date/T clarissa: 2022 (1529) Printe d Date/T clarissa: 2022 (1340) BATCH NO: N/A PAGE 2 Signed Report CC'ed Logic: Orderi ng Provid er: JANI ANGEL Attend ing Provid er: GUTTMA Annette ANGEL Referr ing Provid er: ENMAA Annette ANGEL Consul ting Provid er: ENMAA [facility]EL [facility] [address] , [place], [address], 11/10/2022 19:18:16 11/16/19 23 11/14/2022 XR, ankle No observ ation record ed. [facility] (Radiology) [address] [place] [address] , [place], [address], 11/15/2022 10:59:14 Result Notes None recorded. Problems Name Problem SNOMED Code Status Onset Date Resolution Date Notes Provider Name and Address Organization Details Recorded Time Myocardi al infarcti on 50453887 Completed 201610/02/20162002 Removal Reason: historic rony Grajeda, MEASURING MACHINE TENDER [address], [place], [address] , [place] - [facility] 4 10:57:03 Hypothyr oidism 58856736 Active 2016 Tasiamariana Grajeda, MEASURING MACHINE [employer] [address], [place], [address] , [place] - [facility] 4 10:57:00 [facility] hyperten cesia 15891618 Active 2016 Tasiamariana Grajeda, MEASURING MACHINE T[employer] [address], [place], [address] , [place] [facility] 4 10:56:55 Vitamin D deficien cy 74649935 Active 2016 Tasiamariana Grajeda, MEASURING MACHINE [employer] [address], [place], [address] , [place] [facility] 4 10:57:05 Coronary arterios clerosis 12234018 Active 2016 Tasiamariana Grajeda, MEASURING MACHINE T[employer] [address], [place], [address] , [place] [facility] 4 10:56:49 Chronic back pain 578474520 Active 2016 Tasia Grajeda APRN [address], [place], [address] , [place] [facility] 4 10:56:47 Gastroes ophageal reflux disease 158803564 Active 2016 Tasiamariana Grajeda, MEASURING MACHINE TENDER [address], [place], [address] , [place] [facility] 4 10:56:57 Myocardi al infarcti on 80781131 Active 2002 Tasia Grajeda, MEASURING MACHINE TENDER [address], [place], [address] , [place] [facility] 4 10:57:03 COVID-19 [id number] Completed 202107/26/2023 Tasia Grajeda, MEASURING MACHINE TENDER [address], [place], [address] , [place] [facility] 4 10:56:52 Pulmonar y emphysem a 82908995 Active 2022 Stanley Paez MD [address], [place], [address] , [place] [facility] 3 20:15:04 Reduced libido 0789186 Active 2023 VERO Garcia - [facility] 4 16:15:12 Vaginal dryness 29919165 Active 2023 Leonora Harding null, [place] - [facility] 4 16:15:16 Menopaus al syndrome 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 Procedures Surgical History Date Name Laterality Status Provider Name and Address Organization Details Recorded Time 07/26/19 24 Date of Last Pap Smear completed Tasiamariana Grajeda, PATRICIA [address], [place], [address], [place] - [facility] 07/31/2023 12:54:03 11/10/19 23 Date of Last Mammogram completed Stanley Paez MD [address], [place], [address], [place] - [facility] 11/10/2022 19:18:08 07/14/19 23 Most Recent Bone Density completed Stanley Paez MD [address], [place], [address], [place] - [facility] 12/30/2022 14:43:33 08/18/19 21 Cryosurgery Dermatology completed Stanley Paez MD [address], [place], [address], [place] - [facility] 08/17/2020 17:17:24 03/12/18 95 Colposcopy completed Leonora Harding [place] - [facility] 05/27/2021 10:06:33 Arthrd ant joanie/xoral c1-c2 completed Carmen Yvette [place] - [facility] 11/17/2016 15:04:41 Cardiac Cath completed Carmen Yvette [place] - [facility] 11/17/2016 15:06:21 Removal of ovarian cyst(s) completed Carmen Yvette [place] [facility] 11/17/2016 15:06:41 Tubal Ligation completed Carmen Yvette [place] [facility] 11/17/2016 15:04:30 Unlisted procedure nose completed Carmen PH[facility] - [facility] 11/17/2016 15:04:55 Conization of cervix completed Carmen PH[facility] - [facility] 11/17/2016 15:05:54 Imaging Results None recorded. Procedure Notes None recorded. Medical Equipment None Reported. Allergies Allergen ID Allergen Name Allergen Category Reaction Reaction Severity Criticality Documentation Date Start Date Code Code System Note Provider Name and Address Organization Details Recorded Time 65075 Product containin g penicilli n (product) medicatio n rash Not available Not available 11/17/2016 [id number] SNOMED Justin yin, [place] - [facility] 7 14:57:38 Medications Name Sig Start Date Stop Date Status Note LastModified by Organization Details LastModified Time cyclobenz aprine 10 mg tablet 02/13 completed Not Available Not Available Not Available atorvasta tin 40 mg tablet TAKE 1 TABLET PO QD active Not Available Not Available No t Available clotrimaz ole 10 mg dany 07/25 completed Not Available Not Available Not Available prednison e 10 mg tablet TAKE ACCORDIN G TO ATTACHED INSTRUCT IONS 07/25 completed Not Available Not Available Not Available gabapenti n 600 mg tablet TAKE 1 TABLET 3 TIMES EACH DAY active Not Available Not Available No t Available doxycycli ne hyclate 100 mg capsule TAKE 1 CAPSULE 2 TIMES EACH DAY FOR 10 DAYS 07/25 completed Not Available Not Available Not Available ketoconaz ole 2 % shampoo active Not Available Not Available Not Available azithromy isabella 250 mg tablet TAKE 2 TABLETS (500 MG) BY ORAL ROUTE ONCE DAILY FOR 1 DAY THEN 1 TABLET (250 MG) BY ORAL ROUTE ONCE DAILY FOR 4 DAYS 03/28 completed Not Available Not Available Not Available ibuprofen 800 mg tablet TAKE 1 TABLET 3 TIMES A DAY NEEDED WITH FOOD FOR PAIN active Not Available Not Available No t Available nystatin 100,000 unit/gram topical ointment APPLY TO CORNERS OF MOUTH 5 TIMES EACH DAY 03/28 completed Not Available Not Available Not Available fluconazo le 150 mg tablet TAKE 1 TABLET TODAY. MAY TAKE ANOTHER TABLET IN 3 DAYS IF SYMPTOMS ARE NOT GONE. 07/25 completed Not Available Not Available Not Available metoprolo l succinate ER 50 mg tablet,ex tended release 24 hr TAKE 1 TABLET 1 TIME EACH DAY. 02/03 completed dose increase Not Available Not Available Not Available valacyclo vir 1 gram tablet 10/02 completed Not Available Not Available Not Available methadone 10 mg tablet TAKE 1 TABLET 4 TIMES EACH DAY active Not Available Not Available No t Available phenazopy ridine 200 mg tablet Take 1 tablet 3 times a day by oral route as needed. active Not Available Not Available No t Available lisinopri l 20 mg tablet TAKE 1 TABLET 1 TIME EACH DAY 04/11 completed Not Available Not Available Not Available prednison e 20 mg tablet Take 1 tablet twice a day by oral route for 5 days. 02/01 completed Not Available Not Available Not Available isosorbid e mononitra te ER 30 mg tablet,ex tended release 24 hr Take by oral route for 90 days. active Not Available Not Available No t Available metoprolo l succinate ER 100 mg tablet,ex tended release 24 hr Take 1 tablet every day by oral route. active Not Available Not Available No t Available gabapenti n 400 mg capsule Take 1 capsule every day by oral route as directed for 30 days. 08/17 completed PAIN CLINIC Not Available Not Available Not Available clindamyc in HCl 150 mg capsule 12/30 completed Not Available Not Available Not Available sumatript an 50 mg tablet TAKE 1 TABLET AT START OF HEADACHE . MAY TAKE ANOTHER TABLET IN 2 HOURS IF NEEDED. DO NOT TAKE MORE THAN 2 TABLETS IN 24 HOURS. active Not Available Not Available No t Available topiramat e 25 mg tablet See ATTACHED INSTRUCT IONS 08/17 completed Not Available Not Available Not Available pseudoeph edrine ER 120 mg tablet,ex tended release TAKE 1 TABLET EVERY 12 HOURS NEEDED FOR NASAL CONGESTI ON 07/25 completed Not Available Not Available Not Available acetamino phen 300 mg-codein e 30 mg tablet TAKE 1 TABLET EVERY 6 HOURS NEEDED FOR PAIN 05/08 completed Not Available Not Available Not Available clopidogr el 75 mg tablet Take 1 tablet every day by oral route. active Not Available Not Available No t Available ciproflox acin 250 mg tablet 07/25 completed Not Available Not Available Not Available ciproflox acin 500 mg tablet TAKE 1 TABLET 2 TIMES EACH DAY FOR 7 DAYS active Not Available Not Available No t Available sulfameth oxazole 800 mg-trimet hoprim 160 mg tablet Take 1 tablet every 12 hours by oral route for 7 days. 07/25 completed Not Available Not Available Not Available tramadol 50 mg tablet 02/01 completed Not Available Not Available Not Available triamcino lone acetonide 0.1 % topical cream APPLY A THIN LAYER TO THE AFFECTED AREA(S) BY TOPICAL ROUTE 2 TIMES PER DAY PRN active Not Available Not Available No t Available acyclovir 800 mg tablet 03/20 completed Not Available Not Available Not Available levothyro xine 75 mcg tablet 1 tab po qd 08/17 completed dose change Not Available Not Available Not Available levothyro xine 100 mcg tablet TAKE 1 TABLET ONCE A DAY IN THE MORNING ON AN EMPTY STOMACH. 08/18 completed dose increase Not Available Not Available Not Available levothyro xine 88 mcg tablet TAKE ONE TABLET ONCE A DAY IN THE MORNING ON AN EMPTY STOMACH. 07/01 completed dose increase Not Available Not Available Not Available methocarb rosanne 750 mg tablet 07/25 completed Not Available Not Available Not Available famciclov ir 500 mg tablet Take 1 tablet every 8 hours by oral route. 07/17 completed Not Available Not Available Not Available meclizine 25 mg tablet TAKE 1 TABLET 3 TIMES EACH DAY NEEDED FOR DIZZINES S active Not Available Not Available No t Available desoximet asone 0.25 % topical ointment prn active Not Available Not Available Not Available doxycycli ne monohydra te 100 mg capsule TAKE 1 CAPSULE BY MOUTH TWICE DAILY 12/27 completed Not Available Not Available Not Available cephalexi n 500 mg capsule TAKE 1 CAPSULE 2 TIMES EACH DAY FOR 10 DAYS 07/25 completed Not Available Not Available Not Available pantopraz ole 40 mg tablet,de layed release TAKE 1 TABLET 1 TIME EACH DAY 06/26 completed 06/2022 not helping Not Available Not Available Not Available cyanocoba benny (vit B-12) 1,000 mcg/mL injection solution Inject 1 mL every week by subcutan eous route. 2022 active Not Available Not Available Not Avai lable oseltamiv ir 75 mg capsule 07/17 completed Not Available Not Available Not Available esomepraz ole magnesium 40 mg capsule,d elayed release TAKE 1 CAPSULE 1 TIME EACH DAY active Not Available Not Available No t Available nystatin 100,000 unit/gram topical cream APPLY TO AFFECTED AREA 4 TIMES EACH DAY active Not Available Not Available No t Available ranitidin e 150 mg tablet Take 1 tablet twice a day by oral route. 02/13 completed Not Available Not Available Not Available buspirone 10 mg tablet 10/02 completed Not Available Not Available Not Available clotrimaz ole-betam ethasone 1 %-0.05 % topical cream APPLY TO THE AFFECTED AND SURROUND ING AREAS OF SKIN BY TOPICAL ROUTE 2 TIMES PER DAY IN THE MORNING AND EVENING FOR 2 WEEKS, or until clear 11/17 completed Not Available Not Available Not Available nitroglyc mj 0.4 mg sublingua l tablet DISSOLVE 1 TABLET UNDER THE TONGUE EVERY 5 MINUTES NEEDED FOR CHEST PAIN. IF 3 TABLETS ARE NEEDED, GO TO EMERGENC Y ROOM. active Not Available Not Available No t Available betametha sone dipropion ate 0.05 % topical cream 03/20 completed Not Available Not Available Not Available gabapenti n 300 mg capsule TAKE 1 CAPSULE 3 TIMES EACH DAY 05/27 completed Not Available Not Available Not Available omeprazol e 20 mg capsule,d elayed release TAKE 1 CAPSULE 2 TIMES EACH DAY active Not Available Not Available No t Available mupirocin 2 % topical ointment APPLY A THIN FILM TO THE AFFECTED AREA OF SKIN 2 TIMES EACH DAY active Not Available Not Available No t Available metoprolo l succinate ER 25 mg tablet,ex tended release 24 hr Take 1 tablet every day by oral route as directed for 30 days. 11/13 completed Not Available Not Available Not Available estradiol 0.01% (0.1 mg/gram) vaginal cream [...] TAKE ACCORDIN G TO PACKAGE INSTRUCT IONS 07/25 completed Not Available Not Available Not Available [...] CAPSULE EVERY 12 HOURS FOR 7 DAYS 12/30 completed Not Available Not Available Not Available fluoxetin e 20 mg capsule TAKE 1 CAPSULE ONCE A DAY. 03/20 completed Not Available Not Available Not Available fluticaso ne propionat e 50 mcg/actua tion nasal spray,jae pension SPRAY 1 TIME IN EACH NOSTRIL 1 TIME EACH DAY active Not Available Not Available No t Available clotrimaz ole 1 % topical cream 03/20 completed Not Available Not Available Not Available cholecalc iferol (vitamin D3) 125 mcg [...] FOR 7 DAYS, THEN FOR FLARE-UP S. 07/25 completed Not Available Not Available Not Available levothyro xine 112 mcg tablet TAKE 1 TABLET 1 TIME EACH DAY active Not Available Not Available No t Available Vitamin D3 25 mcg (1,000 unit) capsule Take 1 capsule every day by oral route. 08/18 completed dose increase Not Available Not Available Not Available Premarin 0.625 mg/gram vaginal cream INSERT 1/2 GRAM INTO THE VAGINA 2 TIMES EACH WEEK AT BEDTIME 06/26 completed Not Available Not Available Not Available topiramat e 50 mg tablet TAKE 1 TABLET 2 TIMES EACH DAY active Not Available Not Available No t Available nitrofura ntoin monohydra te/macroc rystals 100 mg capsule Take 1 capsule every 12 hours by oral route for 7 days. 07/25 completed Not Available Not Available Not Available Symbicort 160 mcg-4.5 mcg/actua tion HFA aerosol inhaler INHALE 2 PUFFS 2 TIMES EACH DAY active Not Available Not Available No t Available cholecalc iferol (vitamin D3) 125 mcg (5,000 unit) tablet 07/25 completed Not Available Not Available Not Available Vitamin D3 50 mcg (2,000 unit) capsule Take 1 capsule every day by oral route. 07/25 completed OTC Not Available Not Available Not Available Vitamin D2 400 mg 1 tab po bid 11/13 completed Not Available Not Available Not Available naloxone 4 mg/actuat ion nasal spray SPRAY 1 DOSE INTO 1 NOSTRIL IN CASE OF OVERDOSE . IF PERSON DOES NOT RESPOND IN 2-3 MINUTES, SPRAY OTHER DOSE INTO OTHER NOSTRIL. active Not Available Not Available No t Available Mucus-ER MAX 1,200 mg tablet, extended release TAKE 1 TABLET BY MOUTH EVERY 12 HOURS 03/28 completed Not Available Not Available Not Available Afluria Qd 2018- (36 mos up)(PF)60 mcg (15 mcg x4)/0.5 mL IM syringe 02/01 completed Not Available Not Available Not Available Breztri Aerospher e 160 mcg-9mcg- 4.8mcg/ac tuation HFA aerosol inhaler INHALE 2 PUFFS 2 TIMES EACH DAY active Not Available Not Available No t Available Veozah 45 mg tablet active Not Available Not Available No t Available Vitals Date Recorded Body weight Body mass index (BMI) Body height Systolic blood pressure Diastolic blood pressure Provider Name and Address Organization Details Last Updated DateTime 07/26/2023 882917.1 g 39.5 kg/m2 160.02 cm 120 mm[Hg] 78 mm[Hg] Leonora Harding [place] - [facility] 4 16:23:37 Social History Question Answer Notes LastModified by [employer] Details LastModified Time Tobacco Smoking Status Former Smoker Sonja yin, [place] - [facility] 10/02/2016 14:02:42 Able To Swim? Yes Information not available 10/02/2016 Do You Have An Advance Directive? No [email or web address] Information not available 05/27/2021 Do You Wear A Helmet When Biking? No Information not available 10/02/2016 Are You Blind Or Do You Have Difficulty Seeing? No Information not available 10/02/2016 Is Blood Transfusion Acceptable In An Emergency? Yes [email or web address] Information not available 05/27/2021 What Is Your Level Of Caffeine Consumption? Occasional Information not available 11/17/2016 How Much Tobacco Do You Chew? None Information not available 11/17/2016 In The 14 Days Before Symptom Onset, Have You Had Close Contact With A Laboratory-confi rmed COVID-19 While That Case Was Ill? No [email or web address] Information not available 05/27/2021 In The 14 Days Before Symptom Onset, Have You Had Close Contact With A Person Who Is Under Investigation For COVID-19 While That Person Was Ill? No [email or web address] Information not available 05/27/2021 Have You Been To An Area Known To Be High Risk For COVID-19? No [email or web address] Information not available 05/27/2021 Are You Deaf Or Do You Have Serious Difficulty Hearing? No Information not available 10/02/2016 What Type Of Diet Are You Following? REGULAR Information not available 11/17/2016 Which Illicit Or Recreational Drugs Have You Used? None Information not available 10/02/2016 Have You Processed Blood Or Body Fluids From An Ebola Virus Disease Patient Without Appropriate PPE? No [email or web address] Information not available 05/27/2021 Do You Reside In Or Have You Traveled To An Area Where Ebola Virus Transmission Is Active? No [email or web address] Information not available 05/27/2021 What Is The Highest Grade Or Level Of School You Have Completed Or The Highest Degree You Have Received? [id number] [email or web address] Information not available 07/26/2023 Swimming/diving Yes Informati on not available 10/02/2016 Have There Been Any Changes To Your Family Or Social Situation? No [email or web address] Information not available 05/27/2021 What Is The Fluoride Status Of Your Home? Fluoridated [email or web address] Information not available 05/27/2021 When Did You Quit Smoking? 16+yearssincelas tcigarette [email or web address] Information not available 05/27/2021 Hard Of Hearing Or Deaf In One Or Both Ears? No Information not available 10/02/2016 Have You Recently Or Are You Planning To Travel To An Area With Zika Virus? No [email or web address] Information not available 05/27/2021 Live Alone Or With Others? With Others Information not available 11/17/2016 Do You Have A Medical Power Of Logistics Lead? No [email or web address] Information not available 05/27/2021 What Was The Date Of Your Most Recent Tobacco Screening? 07/26/2023 [email or web address] Information not available 07/26/2023 How Many Children Do You Have? 4 Information not available 10/02/2016 What Is Your Current Pack Years? 20-29packyears [email or web address] Information not available 07/26/2023 Do You Use Protection During Sex? Always Information not available 05/27/2021 Do You Use Protection Against STDs? No [email or web address] Information not available 05/27/2021 What Is Your Relationship Status? Information not available 10/02/2016 Seat Belts Used Routinely Yes Information not available 10/02/2016 Are You Sexually Active? Yes Information not available 11/17/2016 Smoke Alarm In Home Yes Information not available 10/02/2016 Do You Have Smoke And Carbon Monoxide Detectors In Your Home? Yes [email or web address] Information not available 05/27/2021 At What Age Did You Start Smoking Tobacco? 14 [email or web address] Information not available 07/26/2023 Are You Passively Exposed To Smoke? No [email or web address] Information not available 05/27/2021 How Much Tobacco Do You Smoke? No Information not available 07/26/2023 Do You Use Sunscreen Routinely? Yes Information not available 10/02/2016 Has Tobacco Cessation Counseling Been Provided? No [email or web address] Information not available 05/27/2021 How Many Years Have You Smoked Tobacco? 25 Quit 2008 Information not available 11/17/2016 Do You Have Difficulty Walking Or Climbing Stairs? No Information not available 10/02/2016 What Contraceptive Method Was Reported At Start Of This Visit? Female Sterilization [email or web address] Information not available 05/27/2021 Do You Want To Talk About Contraception Or Prevention During Your Visit Today? No - I Do Not Want To Talk About Contraception Today Because I Am Here For Something Else [email or web address] Information not available 07/26/2023 Do You Have Any Future Plans To Get ? No, I Don't Want To Become Information not available 07/26/2023 Sex: Female Functional Status Question Answer Note LastModified by Organizat ion Details LastModified Time Do you use any illicit or recreational drugs? No [email or web address] Information not available 05/27/2021 Do you or have you ever used any other forms of tobacco or nicotine? No [email or web address] Information not available 05/27/2021 What is your level of alcohol consumption? None Information not available 10/02/2016 Are you currently employed? No Information not available 10/02/2016 Do you have transportation difficulties? No [email or web address] Information not available 07/26/2023 What is your status? Not [email or web address] Information no t available 05/27/2021 Are you able to walk? YESWOREST [email or web address] Information not available 07/26/2023 Do you have difficulty doing errands alone? No Information not available 10/02/2016 Are you able to care for yourself? Yes Information n ot available 10/02/2016 What is your occupation? disabled Information not available 11/17/2016 Do you have difficulty dressing or bathing? No Information not available 10/02/2016 What is your exercise level? Occasional Information not available 11/17/2016 Mental Status Question Answer Note LastModified by Organizat ion Details LastModified Time Do you feel stressed (tense, restless, nervous, or anxious, or unable to sleep at night)? [id number] [email or web address] Information not available 07/26/2023 Do you have difficulty concentrating, remembering or making decisions? No Information no t available 10/02/2016 Family History Relationship Description Onset Age of this Age Resolved Age Notes LastModified by Organization Details LastModified Time Father Heart disease [email or web address] Not available 2016 14:01:49 Maternal Grandfather Heart disease [email or web address] Not available 2016 14:02:01 Mother Diabetes mellitus [email or web address] Not available 2016 14:25:14 Medical History Condition Response Pancreatitis N Other Y Atrial Fibrillation N congenital heart disease N Blood Diseases N Hyperthyroidism N Rheumatoid arthritis N Blood Transfusion N Erectile Dysfunction N amputation N Skin Lesions N Depression N Pneumonia N Incontinence N Murmur N Edema N Alzheimer's Disease N Migraine Headaches N Tobacco Abuse N Anxiety Disorder N Hemorrhoids N Obesity N Vision or Eye Problems N Arthritis N Restless Leg Syndrome N Infertility N Polyps N Carpal Tunnel N Acid Reflux (GERD) N Cancer N Stroke N Varicosities N Tendonitis N Crohn's Disease N Hypercholesterolemia N Skin Cancer N Fibromyalgia N Headaches N Anal Fissure N Irritable Bowel Syndrome N Kidney Disease N Heart Problems N Hospitalizations Y Gallstones N Kidney or Bladder Problems N Goiter N Acne N Eating Disorder N Huerta's Esophagus N Hypertriglyceridemia N Constipation N Embolism N Vitamin B12 Deficiency N Deviated Septum N AIDS/HIV N Myocardial Infarction N Asthma N Mitral Valve Disorders N Vertigo N Hepatitis N Thyroid Cancer N Neuropathy N History of DVT N Herniated Disc N Chicken Pox Y Von Willebrands Disease N Thrombophilias N Breast Cancer N Hernia N Plantar Fasciitis N Hypothyroidism N Lung Disease N Defects or Inherited Disease N Breast Problem N Ovarian Cyst N Anesthesia Complications N Testosterone Deficiency N Interstitial Cystitis N Congenital Anomalies N Hypoglycemia N Blood clot N Vitamin D Deficiency N Cellulitis N Endometriosis N Bladder or Kidney Problems N Fracture N Colorectal Cancer N Schizophrenia N Panic Disorder N Concussion N Spina Bifida N Osteoarthritis N Parkinson's Disease N Disc Protrusion N STI N Esophagitis N Angina N Thyroid Problems N GI Problems N ADD/ADHD N Anemia N Multiple Sclerosis N Abnormal PAP Y Lumbago N Mental Illness N Psychiatric Illness N Ovarian Cancer N Diabetes N Degenerative Disc Disease N Seizures/Epilepsy N Syncope N Insomnia N Hyperlipidemia N Eczema N Dementia N Attention Deficient Disorder N Abuse/Domestic Violence N Ulcerative colitis N Cerebrovascular Disease N Depression N Guillain-Imboden N Sleep Apnea N Aneurysm N Heart Disease N Bronchitis N Suicidal Ideation N Pre-Eclampsia N Hypertension Y Osteoporosis N Gynecological History Statement/Question Response Abnormal Pap Y Date of Last Mammogram 11/09/2022 STIs/STDs N Colposcopy HPV Vaccine N Current Control Method Menopause Age at Menarche 13 Age at First Child 16 Last Annual Exam/Provider 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 Y Menses Monthly N Date of Last Pap Smear 07/26/2023 Sexual Problems? N LMP Hormone Replacement Therapy N Obstetrics History GPAL:G 3 P 3 0 0 3 Type Value Full Term 3 Living 3 Total 3 Immunizations Vaccine Type Date Status Note Provider Nam e and Address Organization Details Recorded Time Tdap 5 completed Sonja Richtercock null, [place] - [facility] 10/02/2016 14:08:06 Influenza, split virus, quadrivalent, preservative 8 completed Sonja Richtercock null, [place] - [facility] 01/16/2018 11:43:03 Influenza, split virus, quadrivalent, preservative 9 completed Sonjadevang Richtercock null, [place] - [facility] 01/15/2019 14:42:58 influenza, unspecified formulation 0 completed Martina Shah RN [address], [place], [address], [place] - [facility] 02/03/2020 15:53:35 SARS-COV-2 (COVID-19) vaccine, UNSPECIFIED 1 completed Sonja Stone annamaria, [place] - [facility] 08/17/2020 15:31:23 Influenza, split virus, quadrivalent, preservative 2 completed Sonja Stone null, [place] - [facility] 05/10/2021 16:57:56 influenza, unspecified formulation 3 completed Leonora Harding null, [place] - [facility] 07/26/2023 16:15:01 Past Encounters Encounter ID Performer Location Encounter Start Date Encounter Closed Date Diagnosis/Indication Diagnosis SNOMED-CT Code Diagnosis ICD10 Code Diagnosis Note [id number] Stanley Paez MD [address] [place] [address] 10/02/2016 13:33:19 10/02/2016 15:06:58 Body mass index 30+ - obesity 721400661 Z68.39 Screening mammography 24 168822 Z12.31 Screening for malignant neoplasm of cervix 414620927 Z12.4 Screening for malignant neoplasm of colon 708435860 Z12.11 Vitamin D deficiency 347 02999 E55.9 Essential hypertension 08224304 I10 Hypothyroidism 76081315 E03.9 Gastroesop hageal reflux disease 442073814 K21.9 Chronic back pain 624007 002 M54.9 Ingrowing toenail 588174 009 L60.0 Coronary arteriosclerosis 42813505 I25.10 [id number] Tasia Grajeda APRN [place] [employer] [address] [place] [address] [place] [address] 11/17/2016 14:48:25 11/17/2016 15:36:26 Routine gynecologic examination done 1039005623 9101 Z01.419 Depression screening 171 979714 Z13.89 PHQ-9 completed today. Diet education 89855739 Z71.3 Counseling 786809879 Z71 .9 Exercise counseliliana russo Patient encouraged to exercise 30 minutes 5 days a week. Examinatio n of blood pressure 854186261 Z01.30 Vaccine de clined by patient 4673421289 02 Z28.21 Pt declined flu vaccine today. Screening for malignant neoplasm of cervix 630741289 Z12.4 [id number] Stanley Paez MD [address] [place] [address] 02/13/2017 17:28:09 02/13/2017 17:58:55 Gastroesophageal reflux disease 156116415 K21.9 Herpes zoster 3052643 B0 2.9 [id number] Stanley Paez MD [address] [place] [address] 07/17/2017 14:34:28 07/17/2017 15:19:27 Dysuria 48030567 R30.0 Acute urin basil tract infection 263600432 N39.0 Chronic back pain 376934 002 M54.9 [id number] Stanley Paez MD [address] [place] [address] 08/16/2017 15:12:03 08/16/2017 15:57:24 Hypothyroidism 88954654 E03.9 Coronary arteriosclerosis 84049097 I25.10 Vitamin D deficiency 347 09558 E55.9 Essential hypertension 20925600 I10 Gastroesop hageal reflux disease 547613329 K21.9 Hyperglycemia 75183041 R 73.9 Microscopic hematuria 19 1878391 R31.21 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 [id number] Stanley Paez MD [address] [place] [address] 11/13/2017 15:51:54 11/13/2017 16:32:33 Candidal intertrigo 013368308 B37.2 Gastroesop hageal reflux disease 805756032 K21.9 Depressive disorder 3548 9007 F32.1 Essential hypertension 24085421 I10 Hypothyroidism 78592932 E03.9 [id number] Stanley Paez MD [address] [place] [address] 03/20/2019 15:54:05 03/20/2019 16:44:53 Acute upper respiratory infection 34903984 J06.9 Gastroesop hageal reflux disease 584785097 K21.9 Hypothyroidism 44406290 E03.9 Vitamin D deficiency 347 35359 E55.9 Essential hypertension 31901992 I10 Candidal intertrigo 2661 82483 B37.2 Coronary arteriosclerosis 92042153 I25.10 Chronic back pain 068405 002 M54.9 Thoracic back pain 01859 8004 M54.6 Screening mammography 24 056952 Z12.31 [id number] Stanley Paez MD [address] [place] [address] 02/03/2020 15:40:15 02/03/2020 16:33:00 Coronary arteriosclerosis 17767712 I25.10 Chronic back pain 308832 002 M54.9 Essential hypertension 45034673 I10 Gastroesop hageal reflux disease 229422663 K21.9 Hypothyroidism 64934333 E03.9 Vitamin D deficiency 347 78253 E55.9 Screening mammography 24 815245 Z12.31 Screening for malignant neoplasm of colon 225100194 Z12.11 Postmenopausal state 764 87118 Z78.0 Immunization due 9184063 08 Z28.3 encouraged to get shingrix at her pharmacy Dysuria 01523981 R30.0 Vertigo 395818944 R42 [id number] Stanley Paez MD [address] [place] [address] 08/17/2020 15:20:41 08/17/2020 17:57:46 Coronary arteriosclerosis 76261288 I25.10 stable Chronic back pain 112960 002 M54.9 cont care with pain clinic Essential hypertension 51679620 I10 controlled on meds Gastroesop hageal reflux disease 508007521 K21.9 controlled on med Hypothyroidism 96692523 E03.9 cont levothyrox ine Vitamin D deficiency 347 20412 E55.9 taking OTC 1000 mg qd Immunization due 3218403 08 Z28.3 encouraged to get shingrix and covid vaccines Osteopenia 182087744 M85 .80 last DEXA 04/19/20. take Ca and Vit D and recheck 2 yrs Body mass index 30+ - obesity 681312076 Z68.39 reviewed importance of diet control and regular exercise Hand wart 197047804 B07. 8 keep area clean and covered while it heals. RTC if sany concerns about healing. after it heals, in about 2 weeks, can retx or she can use OTC meds if needed [id number] Darlene Dowell MD [address] [place] [address] 12/22/2020 15:10:49 12/22/2020 16:42:06 Viral screening 020235070 Z11.52 Otitis media 31788648 H6 6.91 Take Doxycyclin e as prescribed and see us back or go to ER right away should gets worse or develops any new symptoms or complaints or if note better within next 48 to 72 hours. Follow up with us in 01 week or so. Acute sinusitis 91790228 J01.90 Use Flonase and take Doxycyclin e as prescribed . See us or go to an (ER) right away should get worse or develop new symptoms or not better within next 48-72 hours. Follow up with us in about 1 week. Dysuria 70635663 R30.9 Acute cystitis. Take Macrobid as prescribed . Follow urine culture and labs. See us back or go to Er right away should she gets worse or develops any new symptoms or complaints . Follow up with us in 3 days Cough 71657908 R05.9 Acute bronchitis . Get CXR. Take Mucinex as prescribed . See us back or go to ER right away should get worse or develop any new symptoms or complaints . Follow up with us in a week. [id number] Stanley Paez MD [address] [place] [address] 05/10/2021 16:45:43 05/10/2021 17:26:24 Coronary arteriosclerosis 67970824 I25.10 stable Chronic back pain 935164 002 M54.9 cont care with pain clinic Essential hypertension 89909648 I10 controlled on meds Gastroesop hageal reflux disease 896185375 K21.9 controlled on med Hypothyroidism 04476761 E03.9 cont levothyrox ine Vitamin D deficiency 347 38617 E55.9 taking D2 2000 units qd Immunization due 7131484 08 Z28.3 encouraged to get shingrix and covid vaccines Osteopenia 449600953 M85 .80 last DEXA 04/19/20. take Ca and Vit D and recheck 2 yrs Body mass index 30+ - obesity 192530438 Z68.39 reviewed importance of diet control and regular exercise Screening mammography 24 661393 Z12.31 Screening for malignant neoplasm of cervix 648542468 Z12.4 Fatigue 14998344 R53.83 post covid Dizziness 070052637 R42 [id number] PATRICIA Valdez [employer] [address] [place] [address] [place] [address] 05/27/2021 14:55:27 05/27/2021 15:36:41 Routine gynecologic examination done 7861943933 9101 Z01.419 Depression screening 171 675452 Z13.89 PHQ-9 completed today. Diet education 45562120 Z71.3 Counseling 932433764 Z71 .82 Exercise counsellin connie. Patient encouraged to exercise 30 minutes 5 days a week. Examinatio n of blood pressure 475523301 Z01.30 Screening for malignant neoplasm of cervix 334033079 Z12.4 Z11.3 Z01.419 Patient advised that I will follow up with results. Screening for malignant neoplasm of colon 058162464 Z12.11 Negative cologuard in 2019 - repeat 02/2023 Screening mammography 24 479729 Z12.31 Scheduled 06/24/21 - order placed by PCP Reduced libido 7652874 R 68.82 Vaginal dryness 56027340 N89.8 Patient advised of the risks and benefits associated with HRT. Patient will report any new or worsening symptoms. [id number] PATRICIA Valdez [employer] [employer] [address] [place] [address] [place] [address] 07/26/2023 16:00:23 07/26/2023 16:45:20 Routine gynecologic examination done 9043777341 9101 Z01.419 Depression screening 171 878046 Z13.31 PHQ-9 completed today. Diet education 44318711 Z71.3 Counseling 554273261 Z71 .82 Exercise counseliliana russo Patient encouraged to exercise 30 minutes 5 days a week. Examinatio n of blood pressure 404652853 Z01.30 Vaccine de clined by patient 2884077680 02 Z28.21 Pt declined flu vaccine today. Screening for malignant neoplasm of cervix 816415414 Z12.4 Z11.3 Z01.419 Patient advised that I will follow up with results. Screening for malignant neoplasm of colon 776487764 Z12.11 Negative cologuard in 2019Pt states she had cologuard with PCP. Will request records. Screening mammography 24 723057 Z12.31 Negative MMG 11/09/22 Reduced libido 7175458 R 68.82 Vaginal dryness 58977705 N89.8 Patient advised of the risks and benefits associated with HRT. Patient will report any new or worsening symptoms. Postmenopausal state 764 46532 Z78.0 Z13.820 Z01.419 Repeat DEXA due 2024 Screening for malignant neoplasm of ovary 311291542 Z12.73 Menopausal flushing 1984 81701 N95.1 Plan to start Ve[place] [id number] Stanley Paez MD [address] [place] [address] 04/11/2022 16:25:10 04/11/2022 17:02:36 Acute urinary tract infection 034726623 N39.0 [id number] Stanley Paez MD [address] [place] [address] 06/26/2022 15:23:30 06/26/2022 16:23:13 Coronary arteriosclerosis 28861602 I25.10 stable. seeing [facility]ology [facility] Chronic back pain 843337 002 M54.9 cont care with pain clinic Essential hypertension 75710886 I10 controlled on metoprolol ER 100 mg qd, lisinopril 40 mg qd, Imdur 30 mg qd Gastroesop hageal reflux disease 706805647 K21.9 symptoms not controlled on pantoprazo le 40 mg qd; doing better on omeprazole 20 mg - 2 tabs a day. will refill today at bid but she will cut back to qd Hypothyroidism 47235638 E03.9 taking levothyrox ine 112 mcg qd Vitamin D deficiency 347 63612 E55.9 taking D2 2000 units qd Osteopenia 096191356 M85 .80 last DEXA 04/19/20. take Ca and Vit D. time for f/u Body mass index 30+ - obesity 222619222 Z68.39 reviewed importance of diet control and regular exercise Screening mammography 24 263985 Z12.31 Immunization advised 310 037250 Z71.9 encouraged to get shingrix and covid vaccines Postmenopausal state 764 76138 Z78.0 Hepatitis C screening 41 3374406 Z11.59 Fatigue 74705661 R53.83 post covid Dyspnea on exertion 6084 5006 R06.09 [id number] Kay Borrego APRN [address] [place] [address] 07/05/2022 15:55:26 07/05/2022 16:21:11 Cobalamin deficiency 760735730 E53.8 [id number] Stanley Paez MD [address] [place] [address] 07/13/2022 16:24:14 07/13/2022 16:43:09 Cobalamin deficiency 192718499 E53.8 [id number] Davidson Robertson MD [address] [place] [address] 07/26/2022 14:46:17 07/26/2022 14:59:12 Cobalamin deficiency 433501352 E53.8 [id number] Stanley Paez MD [address] [place] [address] 08/17/2022 16:29:13 08/17/2022 17:44:38 Cobalamin deficiency 383866580 E53.8 Health Concerns Section Related Observation LastModified by Organization Detai ls LastModified Time None Recorded Concern Status LastModified by Organization Details LastModified Time None Recorded Advance Directives Directive N: Payers Insurance Date Sequence Insurance Name Policy Number Policy Sch[place] Covered Member ID Schulte Member ID Guarantor Name 05/27/2021 2 BILLYCARLENE [facility] (MEDICAID HMO) Rocío Bedoya [id number] Rocío Bedoya 05/27/2021 1 [place] Rocío Bedoya [id number] Rocío Bedoya 02/16/2023 2 AETNA [facility] (MEDICAID HMO) Rocío Bedoya [id number] Rocío Bedoya 07/23/2023 [employer] [place]ATIONAL [place] Rocío Bedoya [id number] Rocío Bedoya 07/23/2023 [place] Rocío Bedoya [id number] Rocío Bedoya 05/27/2021 1 [place] Rocío Bedoya [id number] Rocío Bedoya 05/27/2021 2 PASSPORT BY [employer]. (MEDICAID REPLACEMENT - HMO) MEDICAID Rocío Bedoya [id number] Rocío Bedoya 07/30/2023 1 [place]MED[place]AC[place] H[place] [id number] Rocío Bedoya [id number] Rocío Bedoya 05/27/2021 2 PASSPORT BY [employer] (MEDICAID REPLACEMENT - HMO) MEDICAID Rocío Bedoya [id number] Rocío Bedoya Notes Date Note Type Note Provider Name and Address Organization Details Recorded Time 07/26/2023 text/html Annual - MOBRepo rted bypatient.History: annual exam: ; no gynecologic complaints; no change in interval history; Number of sexual partners: (1) Current Contraception:Monoga mous relationship; Postmenopausal Preventive measures:Encourage self breast examination; Encourage regular exercise; Mammogram performed within the past year; [facility] Rocío is a/an __ 62 year old who presents today as an established patient for an annual exam. Her previous annual exam was in 2021, with myself.She is naturally menopausal. She has been menopausal since age N 52. She has never used HRT.She is still sexually active with the same partner as last visit.In addition to her annual exam, she is c/o vasomotor symptoms. Tasia Grajeda, [employer] [address], [place], [address], [place] - [facility] 07/26/2023 16:43:36 OBGyn Episode No OBEpisode recorded.
--- OUTSIDE RECORDS SUMMARY | 2024-08-15 12:49 | XMS_ITS | Continuity of Care Document ---
Author Organization [facility] [address] [place] [address] [facility] [place] [address] Care Team Providers Care County Commissioner Name Role Phone [facility] Primary Care Provider Assessment Encounter Date Assessment Date Assessment LastModified by Organization Details LastModified Time 07/09/2024 07/09/2024 Global Risk Assessment Score: High [...] Not available Not available Not available Lab None recorded. Referral None recorded. Procedures None recorded. Surgeries None recorded. Imaging None recorded. Medication Orders gabapenti n 600 mg tablet 2024 025 [id number] [facility] [place], [address], 08/14/2024 07:02:42 methadone 10 mg tablet 2024 025 [id number] [facility], [address] [place], [address], 08/14/2024 07:02:45 Patient TargetsNo targets recorded. Patient Instructions Encounter Date Encounter Id Patient Instructions Last Modified By Organization Details Last Modified Time 07/09/2024 [id number] 1) Pain management: Will cont pain meds [...] Abnormal Flag Note LastModifiedBy Organization Detail LastModifiedTime 07/10/19 25 rhyth m strip , EKG* No observ ation record ed. [email or web address] Not Available 04/30/ 2025 11:54:15 Result Notes None recorded. Problems Name Problem SNOMED Code Status Onset Date Resolution Date Notes Provider Name and Address Organization Details Recorded Time Drug dependenc e 978100572 Active 2012 (304.90)D rug Dependenc e Not Otherwise Specified Unspecifi ed Not Available [facility] 2 22:32:29 Depressiv e disorder 06338973 Active (311)Depr essive Disorder, NOS Not Available [facility] 2 22:32:29 Chronic pain 90396507 Active 2012 (338.29)O ther Chronic Pain Not Available [facility] 2 22:32:29 Lumbosacr al spondylos is without myelopath y 42553566 Active 2012 (721.3)Rena mbosacral Spondylos is W/O Myelopath y/ Facet Arthropat hy Not Available [facility] 2 22:32:29 Displacem ent of lumbar intervert ebral disc without myelopath y 83421770 Active 2012 (722.10)L umbar Disc Displacem ent Without Myelopath y/HNP Not Available [facility] 2 22:32:29 Degenerat ion of intervert ebral disc 16691966 Active 2012 (722.52)L umbar or Lumbosacr al Disc Degenerat ion Not Available [facility] 2 22:32:29 Cervical post-lami nectomy syndrome 658572131 Active 2012 (722.81)P ostlamine ctomy Syndrome of Cervical Region KATHARINA Joya [address] , [place], [address] , [facility] 4 15:23:24 Lumbar post-lami nectomy syndrome 092088983 Active (722.83)P ostlamine ctomy Syndrome of Lumbar Region KATHARINA Joya [address], [place], [address] , [facility] 4 15:24:07 Disorder of trunk 194267611 Active 2012 (724.4)Th oracic or Lumbosacr al Neuritis or Radiculit is Not Otherwise Specified Not Available [facility] 2 22:32:29 Cramp in limb 528998052 Active (729.82)C ramp in Limb Not Available [facility] 2 22:32:30 Disorder of bone and articular cartilage 682725377 Active 2014 (733.90)B ONE & CARTILAGE DIS NOS Not Available [facility] 2 22:32:30 Malaise and fatigue 961700763 Active (780.79)M ALAISE AND FATIGUE NEC Not Available [facility] 2 22:32:30 Reduced libido 6727496 Active (799.81)D ecreased Libido Not Available [facility] 2 22:32:30 Generaliz ed anxiety disorder 74484163 Active 2020 (F41.1)Ge neralized anxiety disorder Not Available [facility] 2 22:32:30 Posttraum atic stress disorder 63922015 Active 2021 (F43.10)P ost-traum atic stress disorder, unspecifi ed Not Available [facility] 22:32:30 Hypertens elizabeth disorder 55313439 Active 2020 (I10)Esse ntial (primary) hypertens ion Not Available [facility] 2 22:32:30 Pain of right shoulder joint 44990266205 533562 Active 2014 (M25.511) Pain in right shoulder Not Available [facility] 2 22:32:30 Pain of left shoulder joint 63587552193 017035 Active 2014 (M25.512) Pain in left shoulder Not Available [facility] 2 22:32:30 Pain of left hip joint 39018518431 9100 Active 2020 (M25.552) Pain in left hip Not Available [facility] 2 22:32:31 Lumbar spondylos is 539373517 Active 2020 (M47.26)O ther spondylos is with radiculop athy, lumbar region Bridgette A. Christense n, [place] [address] [facility], [place], [address] , [facility] 4 15:24:03 Cervical spondylos is without myelopath y 729136216 Active 2016 (M47.812) Spondylos is without myelopath y or radiculop athy, cervical region Not Available [facility] 2 22:32:31 Spondylos is without myelopath y 82658371 Active 2016 (M47.816) Spondylos is without myelopath y or radiculop athy, lumbar region Not Available [facility] 2 22:32:31 Degenerat ion of cervical intervert ebral disc 99979663 Active 2019 (M50.30)O ther cervical disc degenerat ion, unspecifi ed cervical region Not Available [facility] 2 22:32:31 Degenerat ion of lumbar intervert ebral disc 36945912 Active 2016 (M51.36)O ther intervert ebral disc degenerat ion, lumbar region KATHARINA Joya [address] [facility], [place], [address] , [facility] 4 15:23:44 Cervical radiculop athy 65223343 Active 2019 (M54.12)R adiculopa thy, cervical region Not Available [facility] 2 22:32:31 Lumbosacr al radiculop athy 0662739 Active 2019 (M54.16)R adiculopa thy, lumbar region Not Available [facility] 2 22:32:31 Finding of neck region Active 2014 (M54.2)Ce rvicalgia Not Available [facility] 2 22:32:32 Post-lami nectomy syndrome 76563354 Active 2019 (M96.1)Po stlaminec greyson syndrome, not elsewhere classifie d Not Available [facility] 2 22:32:32 Spasm 80974710 Active 2015 (R25.2)Cr amp and spasm Not Available [facility] 2 22:32:32 Finding of general energy 848045260 Active 2015 (R53.83)O ther fatigue Not Available [facility] 2 22:32:32 Depressio n screening Active (V79.0)Sp ecial Screening Examinati on for Depressio n Not Available [facility] 2 22:32:33 Screening for disorder Active 2014 (Z13.89)E ncounter for screening for other disorder Not Available [facility] 2 22:32:33 Long-term current use of drug therapy 753071368 Active 2016 (Z79.89)O ther fdc (current) drug therapy Not Available [facility] 2 22:32:33 Long-term current use of opiate analgesic drug 96849848378 4108 Active 2014 (Z79.891) moth exterminator (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 Please review these documents and add these problems to the patient's chart manually as needed. Problem Notes None recorded. Medical Equipment None Reported. Allergies Allergen ID Allergen Name Allergen Category Reaction Reaction Severity Criticality Documentation Date Start Date Code Code System Note Provider Name and Address Organization Details Recorded Time 94028 Product containin g penicilli n (product) medicatio n Not available Not available Not available 07/12/20212012 33421 8001 SNOMED React ion: Broke her out(M ild) Not Available [facility] 2 22:02:06 Medications Name Sig Start Date [...] Updated DateTime 5 160.02 cm 38.6 kg/m2 14113.1 4 g 97.9 [degF] 73 /min 16 /min 154 mm[Hg] 91 mm[Hg] [facility] 5 15:13:43 Social History Question Answer Notes LastModified by Organizat ion Details LastModified Time Tobacco Smoking Status Never Smoker Clary yin, [facility] 08/15/2021 16:16:09 What Is Your [...] SNOMED-CT Code Diagnosis ICD10 Code Diagnosis Note [id number] Mary Ellen De La Torre, TANKAGE SUPERVISOR [address] [place] [address] 06/11/2024 15:20:12 06/11/2024 16:19:25 Long-term current use of opiate analgesic drug 9171495977 02180 Z79.891 Diagnostic /Lab: Order Presumptiv e UDT (necessary for rapid results) with Definitive confirmati on for chronic pain patient, to define treatment and reinforce therapeuti c compliance ; the following apply: [Presumpti ve UDT includes: (Amp, Dilcia, Santiago, Bup, THC, JUDE, ETOH, Meth, Opi, Oxy )] *-Patient is receiving controlled medication s. *-Presumpt elizabeth UDT to identify presence of illicit/no n-prescrib ed substance( s) - Confirm positive for ongoing safe prescribin g of controlled substances . *-Presumpt elizabeth UDT to identify presence of licit/pres cribed substance( s)-Confirm unexpected results, identify specific drug(s) in large class and ensure appropriat e use of prescribed medication (s). *-Definiti ve UDT inadequate ly detected by Presumptiv e UDT (gabapenti n, pregabalin , tramadol, fentanyl, tapentadol and carisoprod ol). Lumbosacra l spondylosis without myelopathy 26605418 M47.817 Pain of ri ght shoulder joint 6913650828 1488063 M25.511 Pain of le ft shoulder joint 6196327309 1703578 M25.512 Pain of sh oulder region 96188516 M25.519 Opioid dependence 245789 00 Z79.891 Cervical post-laminectomy syndrome 576735404 M96.1 Cervical radiculopathy 38201216 M54.12 Cervical s pondylosis without myelopathy 068263424 M47.812 Continuous opioid dependence 328110144 F11.20 Degenerati on of cervical intervertebral disc 26126178 M50.30 Degenerati on of lumbar intervertebral disc 16695093 M51.369 Disorder o f bone and articular cartilage 673741595 M24.10 Displaceme nt of lumbar intervertebral disc without myelopathy 91791506 M51.26 Long-term current use of drug therapy 169378972 Z79.899 Long-term drug therapy 123173712 Z79.899 Lumbar post-laminectomy syndrome 931722560 M96.1 Lumbar spondylosis 02003 0009 M47.26 Lumbosacra l radiculopathy 1501271 M54.16 Malaise and fatigue 2717 98789 R53.81 Pain of le ft hip joint 4302295739 57072 M25.552 Post-benny ectomy syndrome 68941938 M96.1 Spondylosi s without myelopathy 34731966 M47.816 Spasm 49267959 R25.2 Pain of le ft ankle joint 7602175025 7668284 M25.561 [id number] Mary Ellen De La Torre, TANKAGE SUPERVISOR [address] [facility] [address] [place] [address] 07/09/2024 14:44:51 07/09/2024 15:40:22 Long-term current use of opiate analgesic drug 0819763629 66030 Z79.891 Lumbosacra l spondylosis without myelopathy 97365775 M47.817 Pain of ri ght shoulder joint 6415999474 7924650 M25.511 Pain of le ft shoulder joint 8280334154 7525809 M25.512 Pain of sh oulder region 24448279 M25.519 Opioid dependence 123693 00 Z79.891 Cervical post-laminectomy syndrome 691125538 M96.1 Cervical radiculopathy 84332609 M54.12 Cervical s pondylosis without myelopathy 397353686 M47.812 Continuous opioid dependence 311791422 F11.20 Degenerati on of cervical intervertebral disc 77635994 M50.30 Degenerati on of lumbar intervertebral disc 20679353 M51.369 Disorder o f bone and articular cartilage 671070470 M24.10 Displaceme nt of lumbar intervertebral disc without myelopathy 28111883 M51.26 Long-term current use of drug therapy 054231229 Z79.899 Long-term drug therapy 658444274 Z79.899 Lumbar post-laminectomy syndrome 366005382 M96.1 Lumbar spondylosis 84872 0009 M47.26 Lumbosacra l radiculopathy 0208531 M54.16 Malaise and fatigue 2717 82117 R53.81 Pain of le ft hip joint 1463608773 19634 M25.552 Post-benny ectomy syndrome 63640593 M96.1 Spondylosi s without myelopathy 26619410 M47.816 Spasm 62780175 R25.2 Pain of le ft ankle joint 7825548095 8749838 M25.572 Health Concerns Section Related Observation LastModified by Organization Detai ls LastModified Time None Recorded Concern Status LastModified by Organization Details LastModified Time None Recorded Payers Encounter Date Sequence Insurance Name Policy Number Policy Schulte Covered Member ID Schulte Member ID Guarantor Name 07/09/2024 2 [facility] (MEDICAID HMO) Rocío Bedoya [id number] Rocío Bedoya 07/09/2024 1 [facility] (MEDICARE REPLACEMENT/A DVANTAGE - HMO) ILENE Bedoya [id number] Rocío Bedoya Notes Date Note Type Note Provider Name and Address Organization Details Recorded Time text/html chief Complaint: LBP, neck pain, BLE pain Patient is here for a follow up for chronic LBP, neck pain, BLE pain . Patient states that their pain is the same from the last OV. She is hurting a ton more now that she is only getting three methadone per day. She was decreased due to her EKG. 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 08/04/2024 22:33:12 OBGyn Episode No OBEpisode recorded.
--- OUTSIDE RECORDS SUMMARY | 2024-08-15 13:47 | XMS_ITS | CCD ---
Author Organization Unknown Care Team Providers Care Associate Product Integrity Engineer Name Role Phone Unavailable Primary Care Provider Unavailabl e Unavailable Chronic Care Management Unavaila ble Summary Purpose DataExchange Insurance Providers Payer name Policy type / Coverage type Covered green party ID Effective Begin Date Effective End Date [facility] [id number] Unknown Unknown Family History Family History data not found Medication Administered No Medication Administered data Reason For Visit No Reason For Visit data Medical Equipment No Medical Equipment data Advance Directives No Advance Directive data
== END 2024-08-14 23:59 | disposition home or self-care (01) ==
LOC: LAB.DROPOF 08-15 12:46
PROVIDERS: PCP Nurse Practitioner Family; Visit Provider Nurse Practitioner Family
DX: R39.9 Unspecified symptoms and signs involving the genitourinary system (principal); N39.0 Urinary tract infection, site not specified
CPT/HCPCS: 87086; 87088; 87186